=== PATIENT | female | born 1940 | race Caucasian/White ===

== ENCOUNTER 2016-09-26 16:24 | Inpatient (IN) | payer MEDICARE ==
[~2016-09-26] VITALS: Ht 167.6 cm; Wt 56.1 kg
[2016-09-26 04:00] VITALS: BP 138/87; PULSE 82; RESP 20; TEMP 97.9; O2SAT 97
[~2016-09-26 16:24] MED LIST: ACET325T PO; AQUAOIN2 TOP; BACI500O2 TOP; BETH25 PO; BISA10R RECTAL; HYDR-3133 PO; HYDR-3516 PO; HYDR2.5C TOP; LACT PO; LEVO88TA2 PO; MIRTA15 PO; MUCI600T PO; OMEP40CA2 PO; OXYC1TAB63 PO; POLY17S PO; VITATAB56 PO; XARE10TA PO
[2016-09-26 16:36] VITALS: BP 185/77; PULSE 61; RESP 24; O2SAT 98
--- NOTE | 2016-09-26 16:37 | PD ---
HPI Chief Complaint: sob Time Seen by Provider: 16:30 Travel History International Travel<30 days: No (unknown) Contact w/Intl Traveler<30days: No (unknown) History of Present Illness HPI 76yo F with PMH of HTN, COPD, scleroderma presents to the ED with c/o sob for 1 day. Pt has been coughing and feeling sob so she saw a physician at her rehab center and was suppose to be prescribed zpak. She states she felt more sob an hour ago when she [place] so [facility]AC was called. States she felt better when they placed her on nasal cannula and her lungs has been clear. Denies any fever, chest pain, n/v, abdominal pain, focal weakness or numbness. Pt is in a rehab for right proximal femur that was nonoperative and medically managed. PFSH Past Medical History Arthritis: Yes Asthma: Yes Autoimmune Disease: Yes Blood Disorders: No Anxiety: No Depression: No Heart Rhythm Problems: No Cancer: No Cardiac Catheterization: Yes Cardiovascular Problems: Yes High Cholesterol: Yes Chemotherapy: No Chest Pain: Yes (occasional) Congestive Heart Failure: No COPD: Yes Cerebrovascular Accident: No Diabetes: No Diminished Hearing: No Diverticulitis: Yes Endocrine: Yes Fibromyalgia: Yes Gastrointestinal Disorders: Yes (GERD, PORRAS'S ESOPH.) GERD: Yes Glaucoma: No Genitourinary: No Hepatitis: No Hiatal Hernia: No Hypertension: Yes Immune Disorder: Yes (SCLERODERMA, RAYNAUD'S) Kidney Stones: No Musculoskeletal: Yes (FIBROMYLIGIA) Neurologic: No Psychiatric: No Reproductive: No Respiratory: Yes (PULM. HYPERTENSION, COPD) Immunizations Current: No Migraines: Yes (history) Myocardial Infarction: Yes Radiation Therapy: No Renal Failure: No Seizures: No Sickle Cell Disease: No Sleep Apnea: No Thyroid Disease: Yes (HYPO) Ulcer: No PNEUMOCCOCAL Vaccine (Year): 2011 Menopausal: Yes : 7 Para: 3 Miscarriage: 4 Tubal Ligation: Yes Past Surgical History Abdominal Surgery: Yes ( UMBILICAL HERNIA REPAIR) AICD: No Arteriovenous Shunt: No Body Medical Devices: FUNDOPLATATION; STRATA OF ESOPHAGUS Cardiac Surgery: Yes (cardiac cath) Cholecystectomy: Yes Coronary Artery Bypass Graft: No Ear Surgery: No Endocrine Surgery: Yes (PTL. THYROIDECTOMY) Eye Surgery: No Genitourinary Surgery: Yes (BLADDER/ RECTAL SUSP.) Gynecologic Surgery: Yes (total hysterectomy) Hysterectomy: Yes Insulin Pump: No Joint Replacement: Yes (RIGHT KNEE 1998) Oral Surgery: No Pacemaker: No Thoracic Surgery: Yes (FUNDOPLICATION x2) Other Surgery: Yes (THYROID 75 % REMOVED 1969.) Social History Alcohol Use: Yes (1-2 GLASSES OF WINE PER NIGHT) Tobacco Use: No (QUIT 40+ YRS AGO SMOKED 1 PPD FOR APPROX 20+ YRS) Substance Use: No Allergies-Medications (Allergen,Severity, Reaction): Coded Allergies: Duragesic (Verified Allergy, Severe, ITCHING ALL OVER BODY., 09/26/16) Sulfa (Verified Allergy, Severe, Hives, 09/26/16) Tetracycline (Verified Allergy, Severe, ITCHING, 09/26/16) Cipro (Verified Adverse Reaction, Severe, SICK TO STOMACH, 09/26/16) Reported Meds & Prescriptions Reported Meds & Active Scripts Active Hydrocortisone Topical 2.5% Cream 0 Applic TOP TID PRN 30 Days Oxycodone-Acetaminophen 5-325 mg Tab 1 Tab PO Q6HR Acetaminophen 325 Mg Tab 650 Mg PO Q6HR PRN Polyethylene Glycol 3350 Powder (Polyethylene Glycol) 17 Gm Pow 17 Gm PO DAILY PRN Bisac-Evac Supp (Bisacodyl) 10 Mg Supp 1 Mg RECTAL DAILY PRN Aquaphor (Emollient) 1 Oin Oin 1 Applic TOP Q12HR 30 Days Acidophilus/l-Sporogenes (Lactobacillus Acidophilus) 1 Tab Tab 1 Tab PO Q12HR Mirtazapine 15 Mg Tab 15 Mg PO HS Xarelto (Rivaroxaban) 10 Mg Tab 10 Mg PO DAILY Hydroxyzine HCl 25 Mg Tab 25 Mg PO Q8H PRN Hydroxyzine HCl 25 Mg Tab 25 Mg PO DAILY Bacitracin Topical 500 Unit/Gm Oint 0 Applic TOP BID 14 Days Mucinex ER 12 HR (Guaifenesin) 600 Mg Tiffanie 600 Mg PO BID Vitamin D-400 (Cholecalciferol) 400 Unit Tab 400 Units PO DAILY Levothyroxine (Levothyroxine Sodium) 88 Mcg Tab 88 Mcg PO DAILY Urecholine (Bethanechol Chloride) 25 Mg Tab 12.5 Mg PO QID Omeprazole 40 Mg Cap 40 Mg PO DAILY Reported Cimetidine 300 Mg Tab 300 Mg PO BID Prednisone 5 Mg Tab 5 Mg PO DAILY Melatonin 1 Mg Cap Culturelle (Lactobacillus Rhamnosus (GG)) 10 B Cell Cap 1 Cap PO BID Celebrex (Celecoxib) 100 Mg Cap 100 Mg PO BID Tizanidine (Tizanidine HCl) 2 Mg Cap 2 Mg PO BID Review of Systems Except as stated in HPI: all other systems reviewed are Neg Physical Exam Narrative GENERAL: 76yo F not in distress. SKIN: Warm and dry. HEAD: Atraumatic. Normocephalic. EYES: Pupils equal and round. No scleral icterus. No injection or drainage. ENT: No nasal bleeding or discharge. Mucous membranes pink and moist. NECK: Trachea midline. No JVD. CARDIOVASCULAR: Regular rate and rhythm. No murmur appreciated. RESPIRATORY: No accessory muscle use. Clear to auscultation. Breath sounds equal bilaterally. GASTROINTESTINAL: Abdomen soft, non-tender, nondistended. No rebound tenderness or guarding. MUSCULOSKELETAL: No obvious deformities. No clubbing. No cyanosis. No edema. NEUROLOGICAL: Awake and alert. No obvious cranial nerve deficits. Motor grossly within normal limits. Normal speech. PSYCHIATRIC: Appropriate mood and affect; insight and judgment normal. Data Data Last Documented VS Vital Signs Date Time Temp Pulse Resp B/P Pulse Ox O2 Delivery O2 Flow Rate FiO2 09/26/16 18:25 65 21 144/67 96 Nasal Cannula 1 Orders Complete Blood Count With Diff (09/26/16 16:31) Basic Metabolic Panel (Bmp) (09/26/16 16:31) Act Partial Throm Time (Ptt) (09/26/16 16:31) Prothrombin Time / Inr (Pt) (09/26/16 16:31) Magnesium (Mg) (09/26/16 16:31) Troponin I (09/26/16 16:31) Iv Access Insert/Monitor (09/26/16 16:31) Electrocardiogram (09/26/16 16:31) Ecg Monitoring (09/26/16 16:31) Oximetry (09/26/16 16:31) Oxygen Administration (09/26/16 16:31) Chest, Single Ap (09/26/16 16:31) Sodium Chloride 0.9% Flush (Ns Flush) (09/26/16 16:45) Methylprednisolone So Succ Inj (Solumedr (09/26/16 16:45) Albuterol-Ipratropium Neb (Duoneb Neb) (09/26/16 16:45) Ct Pulmonary Angiogram (09/26/16 ) Acetaminophen (Tylenol) (09/26/16 18:15) Sodium Chlorid 0.9% 500 Ml Inj (Ns 500 M (09/26/16 19:15) Iodixanol 320 Inj (Visipaque 320 Inj) (09/26/16 19:12) Labs Laboratory Tests Test 09/26/16 17:15 White Blood Count 7.9 TH/MM3 Red Blood Count 4.18 MIL/MM3 Hemoglobin 11.9 GM/DL Hematocrit 36.5 % Mean Corpuscular Volume 87.3 FL Mean Corpuscular Hemoglobin 28.5 PG Mean Corpuscular Hemoglobin 32.7 % Concent Red Cell Distribution Width 16.1 % Platelet Count 249 TH/MM3 Mean Platelet Volume 7.7 FL Neutrophils (%) (Auto) 67.6 % Lymphocytes (%) (Auto) 18.8 % Monocytes (%) (Auto) 8.8 % Eosinophils (%) (Auto) 3.9 % Basophils (%) (Auto) 0.9 % Neutrophils # (Auto) 5.4 TH/MM3 Lymphocytes # (Auto) 1.5 TH/MM3 Monocytes # (Auto) 0.7 TH/MM3 Eosinophils # (Auto) 0.3 TH/MM3 Basophils # (Auto) 0.1 TH/MM3 CBC Comment DIFF FINAL Differential Comment Prothrombin Time 11.0 SEC Prothromb Time International 1.0 RATIO Ratio Activated Partial 28.0 SEC Thromboplast Time Sodium Level 141 MEQ/L Potassium Level 4.7 MEQ/L Chloride Level 106 MEQ/L Carbon Dioxide Level 25.3 MEQ/L Anion Gap 10 MEQ/L Blood Urea Nitrogen 19 MG/DL Creatinine 1.29 MG/DL Estimat Glomerular Filtration 40 ML/MIN Rate Random Glucose 108 MG/DL Calcium Level 8.9 MG/DL Magnesium Level 2.3 MG/DL Troponin I 0.02 NG/ML [facility] Medical Decision Making Medical Screen Exam Complete: Yes Emergency Medical Condition: Yes Interpretation(s) EKG: NSR 68bpm. LAD. LVH. TWI V5, V6, aVL. Differential Diagnosis COPD exacerbation vs. PNA vs. ACS vs. PE Narrative Course 76yo F with c/o shortness of breath today. Pt is not in acute distress and saturating at 95% on RA. Pt was on nasal cannula and states she feels better but when I took her off nasal cannula, states she felt short of breath again. Will do labs, EKG, CXR and reevaluate. Pt is not wheezing but with history of emphysema and sob, will give methylprednisolone and few duoneb treatments. Labs reviewed, no leukocytosis. BUN/creatinine mildly elevated, pt given IVF NS. Troponin 0.02. CXR showed new bibasilar airspace opacities consistent with atelectasis or consolidation. Will give azithromycin as outpatient. Pt reevaluated at bedside and feels better. CT angio: No PE. Pt has history of pulmonary hypertension. Pt is to be discharged back to rehab. Return precautions given. VS stable. Pt is not in any distress. Diagnosis Primary Impression: Bronchitis Patient Instructions: General Instructions Departure Forms: Tests/Procedures Additional Instructions: Please follow up with your PMD in 3-7 days. Return to the ED if your symptoms worsen. Med/Other Pt SpecificInfo: Prescription(s) given Scripts Azithromycin (Zithromax Z-Joon)250 Mg [id number] Mg PO DIRECTED #1 DSPK Ref 0 500 MG (2 tabs) day 1, then 1 tab days 2-5. Prov:Saundra Hutchison DO 09/26/16 Disposition: 03 DISCHARGE TO SNF Condition: Stable Saundra Hutchison DO Sep 26, 2016 16:37
[2016-09-26 16:40] VITALS: O2SAT 97
[2016-09-26] MEDS: RESP: ALBUTEROL 2.5 MG/IPRATROPIUM 0.5 MG NEB (SCH) INH ×2 (16:42→16:43)
[2016-09-26] MEDS ORDERED: SODIUM CHLORIDE 0.9% FLUSH 5 ML FLUSH IVF PRN (16:45)
[2016-09-26] MEDS ORDERED: methylPREDNISolone SOD SUCC 125 MG/2 ML VIAL IVP ONE (16:45)
--- NOTE | 2016-09-26 17:17 | RADRPT ---
EXAM DATE/TIME: 09/26/2016 16:57 [facility] COMPARISON: CHEST SINGLE AP, April 11, 2016, 10:42. INDICATIONS : Short of breath. MEDICAL HISTORY : Myocardial infarction. SURGICAL HISTORY : None. ENCOUNTER: Initial ACUITY: 1 day PAIN SCORE: 0/10 LOCATION: Bilateral chest FINDINGS: The lungs are hyperinflated and there is bibasilar airspace hazy opacities concerning for subsegmenta l atelectasis versus early airspace consolidation. The costophrenic angles appear sharp. Heart size is mildly enlarged. Pulmonary vasculature is normal. CONCLUSION: New bibasilar airspace opacities consistent with atelectasis versus consolidation. Tiffanie Uriarte MD on September 26, 2016 at 17:15 Board Certified Radiologist. This report was verified electronically.
[2016-09-26 17:56] LABS: AUTOMATED NEUTROPHIL # 5.4 TH/MM3 (1.8-7.7); BASOPHIL # 0.1 TH/MM3 (0-0.2); BASOPHIL % 0.9 % (0.0-2.0); EOSINOPHIL # 0.3 TH/MM3 (0-0.4); EOSINOPHIL % 3.9 % (0.0-4.0); HEMATOCRIT 36.5 % (35.0-46.0); HEMO FLAGS DIFF FINAL; LYMPH % 18.8 % (9.0-44.0); LYMPHOCYTE # 1.5 TH/MM3 (1.0-4.8); MEAN CELL VOLUME 87.3 FL (80.0-100.0); MEAN CORPUSCULAR HEMOGLOBIN 28.5 PG (27.0-34.0); MEAN CORPUSCULAR HGB CONC 32.7 % (32.0-36.0); MONO % 8.8 % (0.0-8.0); NEUT % 67.6 % (16.0-70.0); PLATELET COUNT 249 TH/MM3 (150-450); RED BLOOD COUNT 4.18 MIL/MM3 (4.00-5.30); RED CELL DISTRIBUTION WIDTH 16.1 % (11.6-17.2); WHITE BLOOD COUNT 7.9 TH/MM3 (4.0-11.0)
[2016-09-26] MEDS ORDERED: ACETAMINOPHEN 325 MG TAB PO ONE (18:15)
[2016-09-26 18:21] LABS: BICARBONATE 25.3 MEQ/L (21.0-32.0); MAGNESIUM 2.3 MG/DL (1.5-2.5); POTASSIUM 4.7 MEQ/L (3.5-5.1)
[2016-09-26 18:25] VITALS: BP 144/67; PULSE 65; RESP 21; O2SAT 96
[2016-09-26] MEDS ORDERED: IODIXANOL 320 MG/ML 10 ML VIAL (for RAD SPEC) IV ONE (19:12)
--- NOTE | 2016-09-26 19:13 | RADRPT ---
EXAM DATE/TIME: 09/26/2016 18:52 [facility] COMPARISON: No previous studies available for comparison. INDICATIONS : Shortness of breath starting today. IV CONTRAST: 50 cc Visipaque (iodixanol) IV RADIATION DOSE: 6.46 CTDIvol (mGy) MEDICAL HISTORY : Hypertension. Chronic obstructive pulmonary disease. scleroderma SURGICAL HISTORY : Thyroidectomy. Umbilical hernia repair. ENCOUNTER: Initial ACUITY: 1 day PAIN SCALE: 0/10 LOCATION: chest TECHNIQUE: Volumetric scanning of the chest was performed using a pulmonary embolism protocol MIP images were re constructed. Using automated exposure control and adjustment of the mA and/or kV according to patien t size, radiation dose was kept as low as reasonably achievable to obtain optimal diagnostic quality images. FINDINGS: PULMONARY ARTERIES: No filling defects are seen in the pulmonary arteries through the segmental level. LUNGS: There is moderate emphysema. A few minimal patchy densities are seen within the periphery of the righ t upper lobe in both lower lobes. There is no consolidation or pneumothorax . No concerning pulmonar y nodule is visualized. PLEURAE: There is no pleural thickening or pleural effusion. MEDIASTINUM: There is good visualization of the great vessels of the middle mediastinum. No evidence of mediastin al or hilar adenopathy/mass. Main pulmonary trunk is prominent. Esophagus is dilated and filled with fluid. Anastomotic sutures at the GE junction. MUSCULOSKELETAL: Within normal limits for patient age. MISCELLANEOUS: The visualized upper abdominal organs demonstrate no acute abnormality. CONCLUSION: 1. No evidence for pulmonary embolism. 2. Dilated pulmonary trunk likely pulmonary arterial hypertension. 3. Emphysema with minimal patchy densities could be infectious or inflammatory. 4. Dilated esophagus filled with fluid. Derick Yee MD on September 26, 2016 at 19:08 Board Certified Radiologist. This report was verified electronically.
[2016-09-26] MEDS ORDERED: SODIUM CHLORID 0.9% 500 ML INJ 500 ML IV ONE (19:15)
[2016-09-26] MEDS ORDERED: MELA1CAP (19:19)
[2016-09-26] MEDS ORDERED: PRED5TAB PO (19:19)
[2016-09-26] MEDS ORDERED: CIME300T PO (19:19)
[2016-09-26] MEDS ORDERED: CELE100C PO (19:19)
[2016-09-26] MEDS ORDERED: CULT10CA4 PO (19:19)
[2016-09-26] MEDS ORDERED: TIZA2CAP3 PO (19:19)
[2016-09-26] MEDS ORDERED: ZITHTAB PO (19:35)
[2016-09-26] MEDS ORDERED: cefTRIAXone INJ 1,000 MG in SODIUM CHLORIDE 0.9% INJ 100 ML IV ONE (20:45)
[2016-09-26] MEDS ORDERED: RESP: ALBUTEROL 2.5 MG/IPRATROPIUM 0.5 MG NEB (SCH) NEB ONE (20:45)
[2016-09-26] MEDS ORDERED: AZITHROMYCIN INJ 500 MG in SODIUM CHLOR 0.9% 250 ML INJ 250 ML IV ONE (20:45)
--- NOTE | 2016-09-26 20:59 | PD ---
Physical Exam Date Seen by Provider: Sep 26, 2016 Time Seen by Provider: 20:55 Narrative The patient is a 76-year-old female was initially seen by the previous physician, Dr. Hutchison. The patient presented with one day of shortness of breath that was worse with talking and exertion. The patient is currently in a rehabilitation facility after breaking her hip. The patient had a chest x- ray was unremarkable, CT pulmonary angiogram that was negative except for patchy bilateral airspace disease and findings consistent with pulmonary hypertension. The patient does have a history of pulmonary hypertension and is followed at the [facility]. The patient states she does have a history of COPD , has not smoked in over 20 years. She does use Spiriva, but does not have any nebulizers and is not oxygen dependent at home. The patient was initially going to be discharged by the previous physician, however, continued to complain of shortness of breath. The patient's pulse oximetry on room air was 93%, she had a few rhonchi in the bases bilaterally, otherwise, vitals were stable. I do discussion with the patient regarding possibility of 23 hour observation for nebulizers, serial cardiac enzymes, possibly echocardiogram if indicated. The patient's primary physician is Dr. Means, therefore[facility]. Data Data Last Documented VS Vital Signs Date Time Temp Pulse Resp B/P Pulse Ox O2 Delivery O2 Flow Rate FiO2 09/26/16 18:25 65 21 144/67 96 Nasal Cannula 1 Orders Complete Blood Count With Diff (09/26/16 16:31) Basic Metabolic Panel (Bmp) (09/26/16 16:31) Act Partial Throm Time (Ptt) (09/26/16 16:31) Prothrombin Time / Inr (Pt) (09/26/16 16:31) Magnesium (Mg) (09/26/16 16:31) Troponin I (09/26/16 16:31) Iv Access Insert/Monitor (09/26/16 16:31) Electrocardiogram (09/26/16 16:31) Ecg Monitoring (09/26/16 16:31) Oximetry (09/26/16 16:31) Oxygen Administration (09/26/16 16:31) Chest, Single Ap (09/26/16 16:31) Sodium Chloride 0.9% Flush (Ns Flush) (09/26/16 16:45) Methylprednisolone So Succ Inj (Solumedr (09/26/16 16:45) Albuterol-Ipratropium Neb (Duoneb Neb) (09/26/16 16:45) Ct Pulmonary Angiogram (09/26/16 ) Acetaminophen (Tylenol) (09/26/16 18:15) Sodium Chlorid 0.9% 500 Ml Inj (Ns 500 M (09/26/16 19:15) Iodixanol 320 Inj (Visipaque 320 Inj) (09/26/16 19:12) Ceftriaxone Inj (Rocephin Inj) (09/26/16 20:45) Azithromycin Inj (Zithromax Inj) (09/26/16 20:45) Albuterol-Ipratropium Neb (Duoneb Neb) (09/26/16 20:45) Influenzae A/B Antigen (09/26/16 20:45) Place In Observation (09/26/16 ) Vital Signs (Adult) Q4H (09/26/16 21:38) Activity Oob With Assistance (09/26/16 21:38) ^ Avionic Technician / Telemetry .CONTINUOUS (09/26/16 21:38) Diet Heart Healthy (09/27/16 Breakfast) Sodium Chloride 0.9% Flush (Ns Flush) (09/26/16 21:45) Sodium Chloride 0.9% Flush (Ns Flush) (09/27/16 09:00) Basic Metabolic Panel (Bmp) (09/27/16 06:00) Complete Blood Count With Diff (09/27/16 06:00) Pt Request For Service (09/26/16 21:38) Case Management Consult (09/26/16 21:38) Enoxaparin Inj (Lovenox Inj) (09/27/16 09:00) Naloxone Inj (Narcan Inj) (09/26/16 21:45) Admit Order (Ed Use Only) (09/26/16 21:40) Labs Laboratory Tests Test 09/26/16 17:15 White Blood Count 7.9 TH/MM3 Red Blood Count 4.18 MIL/MM3 Hemoglobin 11.9 GM/DL Hematocrit 36.5 % Mean Corpuscular Volume 87.3 FL Mean Corpuscular Hemoglobin 28.5 PG Mean Corpuscular Hemoglobin 32.7 % Concent Red Cell Distribution Width 16.1 % Platelet Count 249 TH/MM3 Mean Platelet Volume 7.7 FL Neutrophils (%) (Auto) 67.6 % Lymphocytes (%) (Auto) 18.8 % Monocytes (%) (Auto) 8.8 % Eosinophils (%) (Auto) 3.9 % Basophils (%) (Auto) 0.9 % Neutrophils # (Auto) 5.4 TH/MM3 Lymphocytes # (Auto) 1.5 TH/MM3 Monocytes # (Auto) 0.7 TH/MM3 Eosinophils # (Auto) 0.3 TH/MM3 Basophils # (Auto) 0.1 TH/MM3 CBC Comment DIFF FINAL Differential Comment Prothrombin Time 11.0 SEC Prothromb Time International 1.0 RATIO Ratio Activated Partial 28.0 SEC Thromboplast Time Sodium Level 141 MEQ/L Potassium Level 4.7 MEQ/L Chloride Level 106 MEQ/L Carbon Dioxide Level 25.3 MEQ/L Anion Gap 10 MEQ/L Blood Urea Nitrogen 19 MG/DL Creatinine 1.29 MG/DL Estimat Glomerular Filtration 40 ML/MIN Rate Random Glucose 108 MG/DL Calcium Level 8.9 MG/DL Magnesium Level 2.3 MG/DL Troponin I 0.02 NG/ML [facility] Medical Record Reviewed: Yes Supervised Visit with ESTEFANY: No Interpretation(s) EKG reveals normal sinus rhythm with a rate of 68. Inverted T-wave noted in lead V5, V6, 1, and aVL. Laboratory Tests Test 09/26/16 17:15 White Blood Count 7.9 TH/MM3 Red Blood Count 4.18 MIL/MM3 Hemoglobin 11.9 GM/DL Hematocrit 36.5 % Mean Corpuscular Volume 87.3 FL Mean Corpuscular Hemoglobin 28.5 PG Mean Corpuscular Hemoglobin 32.7 % Concent Red Cell Distribution Width 16.1 % Platelet Count 249 TH/MM3 Mean Platelet Volume 7.7 FL Neutrophils (%) (Auto) 67.6 % Lymphocytes (%) (Auto) 18.8 % Monocytes (%) (Auto) 8.8 % Eosinophils (%) (Auto) 3.9 % Basophils (%) (Auto) 0.9 % Neutrophils # (Auto) 5.4 TH/MM3 Lymphocytes # (Auto) 1.5 TH/MM3 Monocytes # (Auto) 0.7 TH/MM3 Eosinophils # (Auto) 0.3 TH/MM3 Basophils # (Auto) 0.1 TH/MM3 CBC Comment DIFF FINAL Differential Comment Prothrombin Time 11.0 SEC Prothromb Time International 1.0 RATIO Ratio Activated Partial 28.0 SEC Thromboplast Time Sodium Level 141 MEQ/L Potassium Level 4.7 MEQ/L Chloride Level 106 MEQ/L Carbon Dioxide Level 25.3 MEQ/L Anion Gap 10 MEQ/L Blood Urea Nitrogen 19 MG/DL Creatinine 1.29 MG/DL Estimat Glomerular Filtration 40 ML/MIN Rate Random Glucose 108 MG/DL Calcium Level 8.9 MG/DL Magnesium Level 2.3 MG/DL Troponin I 0.02 NG/ML Last Impressions Chest X-Ray 09/26/16 1631 Signed Impressions: Service Date/Time: Monday, September 26, 2016 16:57 - CONCLUSION: New bibasilar airspace opacities consistent with atelectasis versus consolidation. Tiffanie Uriarte MD CT Angiography 09/26/16 0000 Signed Impressions: Service Date/Time: Monday, September 26, 2016 18:52 - CONCLUSION: 1. No evidence for pulmonary embolism. 2. Dilated pulmonary trunk likely pulmonary arterial hypertension. 3. Emphysema with minimal patchy densities could be infectious or inflammatory. 4. Dilated esophagus filled with fluid. Derick Yee MD Differential Diagnosis Differential diagnosis includes pulmonary embolism, bronchitis, CHF, pleural effusion, acute coronary syndrome, bronchitis, pneumonia. Narrative Course Patient was initially evaluated by the previous physician, Dr. Hutchison, the patient was going to be discharged. However, she continued to be short of breath. The patient's chest x-ray was unremarkable except for atelectasis, CT pulmonary injury gram was negative for PE, however, did reveal bilateral patchy densities , should this is pneumonia versus bronchitis. The patient states she did not want to leave, she was anxious about her shortness of breath. The patient's O2 sat was 93% on room air, she did appear slightly anxious and dyspneic. Therefore, patient will be 23 hour observation. The patient's primary physician is Dr. Means, therefore[facility]. Physician Communication Physician Communication Dr. Quezada was paged for 23 hour observation. I discussed the patient Dr. Quezada who agrees with 23 hour observation. Diagnosis Primary Impression: Bronchitis Additional Impression: Chronic obstructive pulmonary disease Qualified Code: J44.1 - Chronic obstructive pulmonary disease with acute exacerbation Admitting Information Admitting Physician Requests: Observation Patient Instructions: General Instructions Departure Forms: Tests/Procedures Additional Instruction: Please follow up with your PMD in 3-7 days. Return to the ED if your symptoms worsen. Scripts Azithromycin (Zithromax Z-Joon)250 Mg [id number] Mg PO DIRECTED #1 DSPK Ref 0 500 MG (2 tabs) day 1, then 1 tab days 2-5. Prov:Saundra Hutchison DO 09/26/16 Disposition: 03 DISCHARGE TO SNF Condition: Stable Zay Rachel MD Sep 26, 2016 20:59
[2016-09-26 21:00] VITALS: BP 106/63; PULSE 70; RESP 20; O2SAT 96
[2016-09-26] MEDS ORDERED: NALOXONE HCL 0.4 MG/ML AMP IV PRN (21:45)
[2016-09-26] MEDS ORDERED: RESP: ALBUTEROL 2.5 MG/IPRATROPIUM 0.5 MG NEB (PRN) NEB (22:00)
[2016-09-26] MEDS ORDERED: ZOLPIDEM TARTRATE 10 MG TAB PO ONE (22:45)
--- NOTE | 2016-09-26 22:55 | HHI.HP ---
[facility] Service [facility] Primary Care Physician Froilan Means MD Admission Diagnosis bronchitis, COPD exacerbation, dyspnea Diagnoses: Chief Complaint: Shortness of breath Travel History International Travel<30 Days: No (unknown) Contact w/Intl Traveler <30 Da: No (unknown) Traveled to Known Affected Are: No History of Present Illness History taken from patient and ED physician. 76 her old female with a history of COPD, depression/anxiety and hypothyroidism presented to the ED with complaints of shortness of breath upon exertion today. Patient states she went to go see her dog at the vet and became short of breath while walking. She states she does have COPD but only uses nebulizers about every 3 months or so. She denies any associated chest pain, dizziness, fever or chills. She is currently residing [facility] rehabilitation finishing up rehabilitation for a right greater trochanter hip fracture that was nonsurgical since July 2016. Dr. Garzon is her primary care physician. Dr. Gasca is her psychological operations, whom follows her regularly for a known murmur , patient states last echocardiogram has been within the last 6 months. Review of Systems Constitutional: DENIES: Fever, Chills, Dizziness Respiratory: COMPLAINS OF: Shortness of breath, DENIES: Cough, Sputum production Cardiovascular: DENIES: Chest pain, Lower Extremity Edema, Orthopnea Gastrointestinal: DENIES: Constipation, Diarrhea, Nausea, Vomiting Genitourinary: DENIES: Urinary frequency Musculoskeletal: DENIES: Back pain, Neck pain Integumentary: DENIES: Rash Hematologic/lymphatic: DENIES: Lymphadenopathy Immunologic/allergic: DENIES: Urticaria Neurologic: DENIES: Headache Past Family Social History Past Medical History Hypertension Hypothyroidism COPD Cardiomegaly Right greater trochanter hip fracture nonsurgical Past Surgical History Thyroidectomy Hysterectomy Right knee replacement Cholecystectomy Reported Medications Reported Meds & Active Scripts Active Zithromax Z-Joon (Azithromycin) 250 Mg Dspk 250 Mg PO DIRECTED 500 MG (2 tabs) day 1, then 1 tab days 2-5. Hydrocortisone Topical 2.5% Cream 0 Applic TOP TID PRN 30 Days Oxycodone-Acetaminophen 5-325 mg Tab 1 Tab PO Q6HR Acetaminophen 325 Mg Tab 650 Mg PO Q6HR PRN Polyethylene Glycol 3350 Powder (Polyethylene Glycol) 17 Gm Pow 17 Gm PO DAILY PRN Bisac-Evac Supp (Bisacodyl) 10 Mg Supp 1 Mg RECTAL DAILY PRN Aquaphor (Emollient) 1 Oin Oin 1 Applic TOP Q12HR 30 Days Acidophilus/l-Sporogenes (Lactobacillus Acidophilus) 1 Tab Tab 1 Tab PO Q12HR Mirtazapine 15 Mg Tab 15 Mg PO HS Xarelto (Rivaroxaban) 10 Mg Tab 10 Mg PO DAILY Hydroxyzine HCl 25 Mg Tab 25 Mg PO Q8H PRN Hydroxyzine HCl 25 Mg Tab 25 Mg PO DAILY Bacitracin Topical 500 Unit/Gm Oint 0 Applic TOP BID 14 Days Mucinex ER 12 HR (Guaifenesin) 600 Mg Tiffanie 600 Mg PO BID Vitamin D-400 (Cholecalciferol) 400 Unit Tab 400 Units PO DAILY Levothyroxine (Levothyroxine Sodium) 88 Mcg Tab 88 Mcg PO DAILY Urecholine (Bethanechol Chloride) 25 Mg Tab 12.5 Mg PO QID Omeprazole 40 Mg Cap 40 Mg PO DAILY Reported Cimetidine 300 Mg Tab 300 Mg PO BID Prednisone 5 Mg Tab 5 Mg PO DAILY Melatonin 1 Mg Cap Culturelle (Lactobacillus Rhamnosus (GG)) 10 B Cell Cap 1 Cap PO BID Celebrex (Celecoxib) 100 Mg Cap 100 Mg PO BID Tizanidine (Tizanidine HCl) 2 Mg Cap 2 Mg PO BID Allergies: Coded Allergies: Duragesic (Verified Allergy, Severe, ITCHING ALL OVER BODY., 09/26/16) Sulfa (Verified Allergy, Severe, Hives, 09/26/16) Tetracycline (Verified Allergy, Severe, ITCHING, 09/26/16) Cipro (Verified Adverse Reaction, Severe, SICK TO STOMACH, 09/26/16) Active Ordered Medications Current Medications Medications (Trade) Dose Ordered Sig/Glenny Route Start Time Stop Time Status Last Admin (NS Flush) 2 ml UNSCH PRN FLUSH 09/26/16 21:45 (NS Flush) 2 ml BID FLUSH 09/27/16 09:00 (Narcan Inj) 0.4 mg UNSCH PRN IV 09/26/16 21:45 (SoluMEDROL INJ) 40 mg Q6HR IV PUSH 09/27/16 00:00 09/27/16 00:39 (Protonix) 40 mg DAILY PO 09/27/16 09:00 (Atarax) 25 mg Q8H PRN PO 09/26/16 22:00 (Lactinex) 1 tab Q12HR PO 09/27/16 09:00 (Synthroid) 88 mcg DAILY@06 PO 09/27/16 06:00 (Remeron) 15 mg HS PO 09/27/16 21:00 (Xarelto) 10 mg DAILY PO 09/27/16 09:00 (Zanaflex) 2 mg BID PO 09/27/16 09:00 (Pepcid) 20 mg BID PO 09/27/16 09:00 (Tylenol) 650 mg Q4H PRN PO 09/27/16 01:15 UNV Family History Family history significant for heart disease Social History Tobacco use: Smoked for about 30 years and quit many years ago Alcohol use: Denies Illicit drug use: Denies Physical Exam Vital Signs Vital Signs Date Time Temp Pulse Resp B/P Pulse Ox O2 Delivery O2 Flow Rate FiO2 09/26/16 18:25 65 21 144/67 96 Nasal Cannula 1 09/26/16 18:25 97 Nasal Cannula 1 09/26/16 18:25 65 21 144/67 96 Nasal Cannula 1 09/26/16 17:15 96 Nasal Cannula 2 09/26/16 16:40 97 Nasal Cannula 2.00 09/26/16 16:36 61 24 185/77 98 Physical Exam GENERAL: This is a well-nourished, well-developed patient, in no apparent distress. SKIN: No rashes, ecchymoses or lesions. Cool and dry. HEAD: Atraumatic. Normocephalic. EYES: Pupils equal round and reactive. ENT: Nose without bleeding, purulent drainage or septal hematoma. Airway patent. NECK: Trachea midline. No JVD CARDIOVASCULAR: Regular rate and rhythm. Aortic murmur with radiation to neck RESPIRATORY: Clear to auscultation. Breath sounds equal bilaterally. No wheezes , rales, or rhonchi. GASTROINTESTINAL: Abdomen soft, non-tender, nondistended. MUSCULOSKELETAL: Extremities without clubbing, cyanosis, or edema. No joint tenderness, effusion, or edema noted. No calf tenderness. NEUROLOGICAL: Awake and alert. Motor and sensory grossly within normal limits. Normal speech. Laboratory Laboratory Tests Test 09/26/16 17:15 White Blood Count 7.9 Red Blood Count 4.18 Hemoglobin 11.9 Hematocrit 36.5 Mean Corpuscular Volume 87.3 Mean Corpuscular Hemoglobin 28.5 Mean Corpuscular Hemoglobin 32.7 Concent Red Cell Distribution Width 16.1 Platelet Count 249 Mean Platelet Volume 7.7 Neutrophils (%) (Auto) 67.6 Lymphocytes (%) (Auto) 18.8 Monocytes (%) (Auto) 8.8 Eosinophils (%) (Auto) 3.9 Basophils (%) (Auto) 0.9 Neutrophils # (Auto) 5.4 Lymphocytes # (Auto) 1.5 Monocytes # (Auto) 0.7 Eosinophils # (Auto) 0.3 Basophils # (Auto) 0.1 CBC Comment DIFF FINAL Differential Comment Prothrombin Time 11.0 Prothromb Time International 1.0 Ratio Activated Partial 28.0 Thromboplast Time Sodium Level 141 Potassium Level 4.7 Chloride Level 106 Carbon Dioxide Level 25.3 Anion Gap 10 Blood Urea Nitrogen 19 Creatinine 1.29 Estimat Glomerular Filtration 40 Rate Random Glucose 108 Calcium Level 8.9 Magnesium Level 2.3 Troponin I 0.02 Result Diagram: 09/26/16 1715 09/26/16 1715 Imaging Last Impressions Chest X-Ray 09/26/16 1631 Signed Impressions: Service Date/Time: Monday, September 26, 2016 16:57 - CONCLUSION: New bibasilar airspace opacities consistent with atelectasis versus consolidation. Tiffanie Uriarte MD CT Angiography 09/26/16 0000 Signed Impressions: Service Date/Time: Monday, September 26, 2016 18:52 - CONCLUSION: 1. No evidence for pulmonary embolism. 2. Dilated pulmonary trunk likely pulmonary arterial hypertension. 3. Emphysema with minimal patchy densities could be infectious or inflammatory. 4. Dilated esophagus filled with fluid. Derick Yee MD Assessment and Plan Problem List: (1) COPD exacerbation ICD Code: J44.1 Status: Acute (2) Hypothyroidism ICD Code: E03.9 Status: Chronic (3) Depression ICD Code: F32.9 Status: Chronic Assessment and Plan 76-year-old female with a history of COPD and hypothyroidism presented with: COPD exacerbation Images reviewed: Chest x-ray shows new bibasilar airspace opacities consistent with atelectasis versus consolidation. CT of the chest shows No evidence for pulmonary embolism. Dilated pulmonary trunk likely pulmonary arterial hypertension. Emphysema with minimal patchy densities could be infectious or inflammatory. Dilated esophagus filled with fluid. -DuoNeb's scheduled and as needed -Solu-Medrol IV every 6 -Oxygen as needed Hypothyroidism, chronic -Continue home medications Levothyroxine Depression/anxiety, chronic -Continue home medications Remeron, Atarax DVT prophylaxis: Xarelto GI prophylaxis: Protonix Written by Selam ERNST, acting as scribe for Dr. Quezada on 09/26/16 at 2300. The documentation accurately reflects the work performed [id number] and decisions made by me and the physician Dr Quezada on 09/26/16. The documentation accurately reflects the work performed [id number] by me on at 2300 Discussed Condition With Patient and ED physician Selam Alejandre Sep 26, 2016 22:54 Orlando Quezada MD Sep 27, 2016 07:14
[2016-09-27] VITALS (10 sets, daily range): BP systolic 122–174; BP diastolic 57–78; PULSE 60–85; RESP 18–22; TEMP 95.7–97.5; O2SAT 93–98
[2016-09-27] MEDS: methylPREDNISolone SOD SUCC 40 MG/1 ML VIAL IV PUSH SCH ×4 (00:39→20:19)
[2016-09-27] MEDS: ACETAMINOPHEN 325 MG TAB PO PRN ×4 (01:19→20:24)
[2016-09-27] MEDS: RESP: ALBUTEROL 2.5 MG/IPRATROPIUM 0.5 MG NEB (SCH) NEB ×4 (03:49→20:00)
[2016-09-27] MEDS: LEVOTHYROXINE SODIUM 88 MCG TAB PO SCH (04:59)
[2016-09-27 07:11] LABS: AUTOMATED NEUTROPHIL # 7.5 TH/MM3 (1.8-7.7); BASOPHIL % 0.2 % (0.0-2.0); HEMATOCRIT 35.6 % (35.0-46.0); HEMO FLAGS DIFF FINAL; LYMPH % 7.5 % (9.0-44.0); LYMPHOCYTE # 0.6 TH/MM3 (1.0-4.8); MEAN CORPUSCULAR HEMOGLOBIN 28.6 PG (27.0-34.0); MEAN CORPUSCULAR HGB CONC 33.3 % (32.0-36.0); MONO % 1.8 % (0.0-8.0); NEUT % 90.5 % (16.0-70.0); PLATELET COUNT 232 TH/MM3 (150-450); RED BLOOD COUNT 4.14 MIL/MM3 (4.00-5.30); RED CELL DISTRIBUTION WIDTH 15.9 % (11.6-17.2); WHITE BLOOD COUNT 8.3 TH/MM3 (4.0-11.0)
[2016-09-27 07:37] LABS: BICARBONATE 22.2 MEQ/L (21.0-32.0); POTASSIUM 4.6 MEQ/L (3.5-5.1)
[2016-09-27] MEDS: FAMOTIDINE 20 MG TAB PO SCH ×2 (08:04→20:19)
[2016-09-27] MEDS: PANTOPRAZOLE SOD 40 MG DELAYED RELEASE TAB PO SCH (08:05)
[2016-09-27] MEDS: RIVAROXABAN 10 MG TAB PO SCH (08:05)
[2016-09-27] MEDS: LACTOBACILLUS ACIDOPHILUS TAB PO SCH ×2 (08:06→20:19)
[2016-09-27] MEDS ORDERED: ENOXAPARIN SODIUM 40 MG/0.4 ML SYRINGE SQ SCH (09:00)
[2016-09-27] MEDS ORDERED: INFLUENZA VIRUS VACCINE (QUADRIVALENT) 0.5 ML SYR IM ONE (09:00)
--- NOTE | 2016-09-27 13:29 | HHI.PR ---
Subjective Remarks The patient says she still feels short of breath. She said her daughter left a note for me to read. She says she was feeling sickly lately and was thinking about taking a Z-Joon. 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 Discussed with nursing. Discussed with the patient's daughter. Objective Vitals Vital Signs Date Time Temp Pulse Resp B/P Pulse Ox O2 Delivery O2 Flow Rate FiO2 09/27/16 10:03 94 Nasal Cannula 2.00 09/27/16 08:00 97.2 60 18 174/72 97 09/27/16 04:00 65 18 149/67 97 Nasal Cannula 2 09/27/16 00:00 74 20 122/58 96 Nasal Cannula 2 09/26/16 21:00 70 20 106/63 96 Nasal Cannula 2 09/26/16 18:25 65 21 144/67 96 Nasal Cannula 1 09/26/16 18:25 97 Nasal Cannula 1 09/26/16 18:25 65 21 144/67 96 Nasal Cannula 1 09/26/16 17:15 96 Nasal Cannula 2 09/26/16 16:40 97 Nasal Cannula 2.00 09/26/16 16:36 61 24 185/77 98 Result Diagram: 09/27/16 0625 09/27/16 0625 Imaging Last Impressions Chest X-Ray 09/26/16 1631 Signed Impressions: Service Date/Time: Monday, September 26, 2016 16:57 - CONCLUSION: New bibasilar airspace opacities consistent with atelectasis versus consolidation. Tiffanie Uriarte MD CT Angiography 09/26/16 0000 Signed Impressions: Service Date/Time: Monday, September 26, 2016 18:52 - CONCLUSION: 1. No evidence for pulmonary embolism. 2. Dilated pulmonary trunk likely pulmonary arterial hypertension. 3. Emphysema with minimal patchy densities could be infectious or inflammatory. 4. Dilated esophagus filled with fluid. Derick Yee MD Objective Remarks GENERAL: This is a well-nourished, well-developed patient, in no apparent distress. SKIN: No rashes, ecchymoses or lesions. Cool and dry. HEAD: Atraumatic. Normocephalic. EYES: Pupils equal round and reactive. ENT: Nose without bleeding, purulent drainage or septal hematoma. Airway patent. NECK: Trachea midline. No JVD CARDIOVASCULAR: Regular rate and rhythm. Systolic murmur appreciated. RESPIRATORY: Clear to auscultation. Decreased breath sounds. GASTROINTESTINAL: Abdomen soft, non-tender, nondistended. MUSCULOSKELETAL: Extremities without clubbing, cyanosis, or edema. No joint tenderness, effusion, or edema noted. NEUROLOGICAL: Awake and alert. Motor and sensory grossly within normal limits. Normal speech. PSYCH: Mood and affect appreciated. Medications and IVs Current Medications Medications (Trade) Dose Ordered Sig/Glenny Route Start Time Stop Time Status Last Admin (NS Flush) 2 ml UNSCH PRN FLUSH 09/26/16 21:45 (NS Flush) 2 ml BID FLUSH 09/27/16 09:00 (Narcan Inj) 0.4 mg UNSCH PRN IV 09/26/16 21:45 (SoluMEDROL INJ) 40 mg Q6HR IV PUSH 09/27/16 00:00 09/27/16 11:51 (Protonix) 40 mg DAILY PO 09/27/16 09:00 09/27/16 08:05 (Atarax) 25 mg Q8H PRN PO 09/26/16 22:00 (Lactinex) 1 tab Q12HR PO 09/27/16 09:00 09/27/16 08:06 (Synthroid) 88 mcg DAILY@06 PO 09/27/16 06:00 09/27/16 04:59 (Remeron) 15 mg HS PO 09/27/16 21:00 (Xarelto) 10 mg DAILY PO 09/27/16 09:00 09/27/16 08:05 (Zanaflex) 2 mg BID PO 09/27/16 09:00 09/27/16 08:06 (Pepcid) 20 mg BID PO 09/27/16 09:00 09/27/16 08:04 (Tylenol) 650 mg Q4H PRN PO 09/27/16 01:15 09/27/16 08:04 Oxycodone HCl 5 mg 5 mg Q4H PRN PO 09/27/16 12:00 09/27/16 11:50 (Zithromax Inj/ NS 250 ml Inj) 250 ml @ 250 mls/hr Q24H IV 09/27/16 15:00 Docusate Sodium 100 mg 100 mg BID PO 09/27/16 21:00 (Rocephin Inj/NS Inj) 100 ml @ 200 mls/hr Q24H IV 09/27/16 13:30 UNV A/P Problem List: (1) COPD exacerbation ICD Code: J44.1 Status: Acute (2) Hypothyroidism ICD Code: E03.9 Status: Chronic (3) Depression ICD Code: F32.9 Status: Chronic Assessment and Plan COPD exacerbation Chest x-ray shows new bibasilar airspace opacities consistent with atelectasis versus consolidation. CT of the chest shows: No evidence for pulmonary embolism ; Dilated pulmonary trunk likely pulmonary arterial hypertension; Emphysema with minimal patchy densities could be infectious or inflammatory; Dilated esophagus filled with fluid. - DuoNeb's scheduled and as needed. - Solu-Medrol IV every 8 hours. - Oxygen as needed. - Incentive spirometry. - pulmonology consult pending. HTN Likely exacerbated by shortness of breath. - Vasotec as needed. Hyperglycemia Blood sugar has been running high. - check a hemoglobin A1c. Headache The pt has a history of migraines but does not feel like her typical migraine. - pain control as needed. DVT prophylaxis: Xarelto GI prophylaxis: Protonix Discharge Planning Awaiting clinical improvement. Girma Monk DO Sep 27, 2016 13:29
[2016-09-27] MEDS ORDERED: ENALAPRILAT 1.25 MG/ML VIAL IV PUSH PRN (14:00)
[2016-09-27] MEDS: cefTRIAXone INJ 1,000 MG in SODIUM CHLORIDE 0.9% INJ 100 ML IV SCH (14:58)
[2016-09-27 15:47] LABS: HEMOGLOBIN A1b 1.9 %; HEMOGLOBIN Ao 84.9 %; HEMOGLOBIN LA1C 2.4 %; HEMOGLOBIN P3 4.1 %
[2016-09-27] MEDS: AZITHROMYCIN INJ 500 MG in SODIUM CHLOR 0.9% 250 ML INJ 250 ML IV SCH ×3 (18:30→22:15)
[2016-09-27] MEDS: DOCUSATE SODIUM 100 MG CAP PO SCH (20:19)
[2016-09-27] MEDS: MIRTAZAPINE 15 MG TAB PO SCH (20:20)
[2016-09-27] MEDS: SODIUM CHLORIDE 0.9% FLUSH 5 ML FLUSH FLUSH SCH (21:00)
--- NOTE | 2016-09-27 21:13 | EKG ---
Date Performed: 09/26/2016 Time Performed: 16:51:18 PTAGE: 76 years EKG: Sinus rhythm POSSIBLE LEFT ATRIAL ENLARGEMENT ST DEVIATION AND MODERATE T-WAVE ABNORMALITY, CONSIDER LATERAL ISCH EMIA ABNORMAL ECG PREVIOUS TRACING : 04/11/2016 13.54 DOCTOR: Rodrick To Interpretating Date/Time 09/27/2016 21:06:18
[2016-09-28] VITALS (8 sets, daily range): BP systolic 131–160; BP diastolic 61–71; PULSE 58–65; RESP 17–18; TEMP 96.5–97.9; O2SAT 98–100
[2016-09-28] MEDS: LEVOTHYROXINE SODIUM 88 MCG TAB PO SCH (05:58)
[2016-09-28] MEDS: methylPREDNISolone SOD SUCC 40 MG/1 ML VIAL IV PUSH SCH ×2 (05:58→19:50)
--- NOTE | 2016-09-28 07:15 | RADRPT ---
EXAM DATE/TIME: 09/28/2016 06:49 [place] COMPARISON: CHEST SINGLE AP, September 26, 2016, 16:57. INDICATIONS : Coughing, short of breath, former smoker MEDICAL HISTORY : Chronic obstructive pulmonary disease. Myocardial infarction. SURGICAL HISTORY : None. ENCOUNTER: Subsequent ACUITY: 2 days PAIN SCORE: 0/10 LOCATION: Bilateral chest FINDINGS: The heart size is normal. There is a calcified granuloma in the left upper lung and possibly the righ t base. Lungs are otherwise clear. No effusion is seen. CONCLUSION: No acute disease. Stone Becker MD on September 28, 2016 at 7:13 Board Certified Radiologist. This report was verified electronically.
[2016-09-28] MEDS: RESP: ALBUTEROL 2.5 MG/IPRATROPIUM 0.5 MG NEB (SCH) NEB ×4 (08:00→19:39)
[2016-09-28] MEDS: FAMOTIDINE 20 MG TAB PO SCH (08:57)
[2016-09-28] MEDS: DOCUSATE SODIUM 100 MG CAP PO SCH ×2 (08:58→19:50)
[2016-09-28] MEDS: PANTOPRAZOLE SOD 40 MG DELAYED RELEASE TAB PO SCH (08:58)
[2016-09-28] MEDS: LACTOBACILLUS ACIDOPHILUS TAB PO SCH ×2 (08:58→19:50)
[2016-09-28] MEDS: RIVAROXABAN 10 MG TAB PO SCH (08:58)
--- NOTE | 2016-09-28 13:43 | HHI.PR ---
Subjective Remarks The patient was resting comfortably in bed. She said that she had some itching on her arms. She said she had a cough but was not coughing up any sputum. She said she felt better overall. Discussed with nursing. Objective Vitals Vital Signs Date Time Temp Pulse Resp B/P Pulse Ox O2 Delivery O2 Flow Rate FiO2 09/28/16 12:03 96.5 63 18 135/64 100 09/28/16 08:00 97.1 58 17 135/62 98 09/28/16 07:00 59 09/28/16 04:00 97.0 58 18 140/65 100 09/27/16 23:00 97.0 62 18 134/57 98 09/27/16 20:30 97.4 70 20 140/66 97 09/27/16 19:00 74 09/27/16 16:00 96.0 72 18 139/65 97 09/27/16 15:14 98 Nasal Cannula 2.00 I/O 09/27/16 09/27/16 09/27/16 09/28/16 09/28/16 09/28/16 07:00 15:00 23:00 07:00 15:00 23:00 Intake Total 480 ml 600 ml Balance 480 ml 600 ml Intake Oral 480 ml 600 ml # Voids 3 1 2 # Bowel Movements 1 0 1 Result Diagram: 09/27/1625 09/27/16 0625 Imaging Last Impressions Chest X-Ray 09/28/16 0600 Signed Impressions: Service Date/Time: Wednesday, September 28, 2016 06:49 - CONCLUSION: No acute disease. Stone Becker MD CT Angiography 09/26/16 0000 Signed Impressions: Service Date/Time: Monday, September 26, 2016 18:52 - CONCLUSION: 1. No evidence for pulmonary embolism. 2. Dilated pulmonary trunk likely pulmonary arterial hypertension. 3. Emphysema with minimal patchy densities could be infectious or inflammatory. 4. Dilated esophagus filled with fluid. Derick Yee MD Objective Remarks GENERAL: This is a well-nourished, well-developed patient, in no apparent distress. SKIN: No rashes, ecchymoses or lesions. Cool and dry. HEAD: Atraumatic. Normocephalic. EYES: Pupils equal round and reactive. ENT: Nose without bleeding, purulent drainage or septal hematoma. Airway patent. NECK: Trachea midline. No JVD CARDIOVASCULAR: Regular rate and rhythm. Systolic murmur appreciated. RESPIRATORY: Clear to auscultation. Decreased breath sounds, especially on the left lower lung field. GASTROINTESTINAL: Abdomen soft, non-tender, nondistended. MUSCULOSKELETAL: Extremities without clubbing, cyanosis, or edema. No joint tenderness, effusion, or edema noted. NEUROLOGICAL: Awake and alert. Motor and sensory grossly within normal limits. Normal speech. PSYCH: Mood and affect appreciated. Medications and IVs Current Medications Medications (Trade) Dose Ordered Sig/Glenny Route Start Time Stop Time Status Last Admin (NS Flush) 2 ml UNSCH PRN FLUSH 09/26/16 21:45 (NS Flush) 2 ml BID FLUSH 09/27/16 09:00 09/27/16 21:00 (Narcan Inj) 0.4 mg UNSCH PRN IV 09/26/16 21:45 (Protonix) 40 mg DAILY PO 09/27/16 09:00 09/28/16 08:58 (Atarax) 25 mg Q8H PRN PO 09/26/16 22:00 (Lactinex) 1 tab Q12HR PO 09/27/16 09:00 09/28/16 08:58 (Synthroid) 88 mcg DAILY@06 PO 09/27/16 06:00 09/28/16 05:58 (Remeron) 15 mg HS PO 09/27/16 21:00 09/27/16 20:20 (Xarelto) 10 mg DAILY PO 09/27/16 09:00 09/28/16 08:58 (Zanaflex) 2 mg BID PO 09/27/16 09:00 09/28/16 08:58 (Pepcid) 20 mg BID PO 09/27/16 09:00 09/28/16 08:57 (Tylenol) 650 mg Q4H PRN PO 09/27/16 01:15 09/27/16 20:24 Oxycodone HCl 5 mg 5 mg Q4H PRN PO 09/27/16 12:00 09/27/16 11:50 (Zithromax Inj/ NS 250 ml Inj) 250 ml @ 250 mls/hr Q24H IV 09/27/16 15:00 09/27/16 18:30 Docusate Sodium 100 mg 100 mg BID PO 09/27/16 21:00 09/28/16 08:58 (Rocephin Inj/NS Inj) 100 ml @ 200 mls/hr Q24H IV 09/27/16 14:00 09/27/16 14:58 (SoluMEDROL INJ) 40 mg Q8HR IV PUSH 09/27/16 22:00 09/28/16 05:58 (Vasotec Inj) 1.25 mg Q6H PRN IV PUSH 09/27/16 14:00 (Roxicodone) 10 mg Q4H PRN PO 09/27/16 14:00 09/28/16 01:47 (Corticaine 0.5% Cream) 1 applic Q8H PRN TOPICAL 09/28/16 13:45 UNV A/P Problem List: (1) COPD exacerbation ICD Code: J44.1 Status: Acute (2) Hypothyroidism ICD Code: E03.9 Status: Chronic (3) Depression ICD Code: F32.9 Status: Chronic Assessment and Plan COPD exacerbation Chest x-ray shows new bibasilar airspace opacities consistent with atelectasis versus consolidation. CT of the chest shows: No evidence for pulmonary embolism ; Dilated pulmonary trunk likely pulmonary arterial hypertension; Emphysema with minimal patchy densities could be infectious or inflammatory; Dilated esophagus filled with fluid. Appreciate pulmonology consultation. - DuoNeb's scheduled and as needed. - Solu-Medrol weaned to BID 09/28. - Oxygen as needed. - Incentive spirometry. - home oxygen walk test. - PT. Encourage ambulation. - continue ceftriaxone and azithromycin. HTN Likely exacerbated by shortness of breath. Improved 09/28. - Vasotec as needed. Hyperglycemia Blood sugar has been running high. S/t steroids. A1c not elevated. - wean off of steroids. Headache The pt has a history of migraines but does not feel like her typical migraine. - pain control as needed. DVT prophylaxis: Xarelto GI prophylaxis: Protonix Discharge Planning Awaiting clinical improvement. Girma Monk DO Sep 28, 2016 13:43
[2016-09-28] MEDS ORDERED: HYDROCORTISONE 0.5% CREAM 30 GM TOPICAL PRN (13:45)
[2016-09-28] MEDS ORDERED: guaiFENesin/CODEINE SYRUP 200 MG/20 MG/10 ML CUP PO PRN (13:45)
[2016-09-28] MEDS: SODIUM CHLORIDE 0.9% FLUSH 5 ML FLUSH FLUSH PRN ×2 (13:46→19:51)
[2016-09-28] MEDS: cefTRIAXone INJ 1,000 MG in SODIUM CHLORIDE 0.9% INJ 100 ML IV SCH (13:47)
--- NOTE | 2016-09-28 18:05 | HHI.PR ---
Subjective Remarks Has some cough and wheezing. Sputum is thick. No fever. Objective Vital Signs Date Time Temp Pulse Resp B/P Pulse Ox O2 Delivery O2 Flow Rate FiO2 09/28/16 16:00 97.0 65 18 131/61 100 09/28/16 12:03 96.5 63 18 135/64 100 09/28/16 08:00 97.1 58 17 135/62 98 09/28/16 07:00 59 09/28/16 04:00 97.0 58 18 140/65 100 09/27/16 23:00 97.0 62 18 134/57 98 09/27/16 20:30 97.4 70 20 140/66 97 09/27/16 19:00 74 I/O 09/27/16 09/27/16 09/27/16 09/28/16 09/28/16 09/28/16 07:00 15:00 23:00 07:00 15:00 23:00 Intake Total 480 ml 600 ml 480 ml Balance 480 ml 600 ml 480 ml Intake Oral 480 ml 600 ml 480 ml # Voids 3 1 2 4 # Bowel Movements 1 0 1 0 Result Diagram: 09/27/1625 09/27/16 0625 Objective Remarks GENERAL: This is a emaciated patient, in no apparent distress. SKIN: No rashes, ecchymoses or lesions. Cool and dry. HEAD: Atraumatic. Normocephalic. EYES: Pupils equal round and reactive. ENT: Nose without bleeding, purulent drainage or septal hematoma. Airway patent. NECK: Trachea midline. No JVD CARDIOVASCULAR: Regular rate and rhythm. Systolic murmur appreciated. RESPIRATORY: Decreased breath sounds, especially on the left lower lung field. Wheeze heard bilaterally with basal crackles GASTROINTESTINAL: Abdomen soft, non-tender, nondistended. MUSCULOSKELETAL: Extremities without clubbing, cyanosis, or edema. No joint tenderness, effusion, or edema noted. NEUROLOGICAL: Awake and alert. Motor and sensory grossly within normal limits. Normal speech. PSYCH: Mood and affect appreciated. Assessment and Plan Assessment and Plan Plan A/P Problem List: (1) COPD with Acute exacerbation ICD Code: J44.1 Status: Acute (2) Hypothyroidism ICD Code: E03.9 Status: Chronic (3) Depression (4) Basal atelectasis/Pneumonia Plan : 1. Continue antibiotics , Rocephin /Zithro 2. Cont solumedrol 40 mg bid. 3. PFT with Bronchodilator. 4. Nebs qid , duoneb. 5. Breo Ellipta 100 Mcg , 1 puff daily. 6. Could switch to PO antibiotics in 1 to 2 Days Nayeli Azar MD Sep 28, 2016 18:04
[2016-09-28] MEDS: hydrOXYzine HCL 25 MG TAB PO PRN (19:50)
[2016-09-28] MEDS: MIRTAZAPINE 15 MG TAB PO SCH (19:50)
[2016-09-28] MEDS: SODIUM CHLORIDE 0.9% FLUSH 5 ML FLUSH FLUSH SCH (19:51)
[2016-09-29] VITALS (8 sets, daily range): BP systolic 131–155; BP diastolic 65–74; PULSE 57–66; RESP 17–20; TEMP 96.3–98.8; O2SAT 97–100
[2016-09-29] MEDS: LEVOTHYROXINE SODIUM 88 MCG TAB PO SCH (05:21)
[2016-09-29] MEDS: RESP: ALBUTEROL 2.5 MG/IPRATROPIUM 0.5 MG NEB (SCH) NEB ×4 (07:46→19:31)
[2016-09-29] MEDS: LACTOBACILLUS ACIDOPHILUS TAB PO SCH ×2 (08:01→19:38)
[2016-09-29] MEDS: RIVAROXABAN 10 MG TAB PO SCH (08:01)
[2016-09-29] MEDS: AZITHROMYCIN 250 MG TAB PO SCH (08:01)
[2016-09-29] MEDS: FLUTICASONE 100 MCG/VILANTEROL 25 MCG INHALER INH SCH (08:01)
[2016-09-29] MEDS: PANTOPRAZOLE SOD 40 MG DELAYED RELEASE TAB PO SCH (08:01)
[2016-09-29] MEDS: DOCUSATE SODIUM 100 MG CAP PO SCH ×2 (08:01→19:39)
[2016-09-29] MEDS: methylPREDNISolone SOD SUCC 40 MG/1 ML VIAL IV PUSH SCH ×2 (08:02→19:40)
[2016-09-29] MEDS: SODIUM CHLORIDE 0.9% FLUSH 5 ML FLUSH FLUSH SCH ×2 (08:02→19:40)
[2016-09-29] MEDS: hydrOXYzine HCL 25 MG TAB PO PRN ×2 (11:11→19:40)
[2016-09-29] MEDS: cefTRIAXone INJ 1,000 MG in SODIUM CHLORIDE 0.9% INJ 100 ML IV SCH (12:08)
--- NOTE | 2016-09-29 14:27 | HHI.PR ---
Subjective Remarks The patient said she was feeling tired. She overall felt better. She has been tolerating a diet. She has been having bowel movements. She has no acute complaints at this time. Objective Vitals Vital Signs Date Time Temp Pulse Resp B/P Pulse Ox O2 Delivery O2 Flow Rate FiO2 09/29/16 11:05 97.3 66 20 136/67 99 09/29/16 08:00 96.6 60 19 155/74 97 09/29/16 08:00 57 09/29/16 07:47 99 Nasal Cannula 3.00 09/29/16 06:07 0 09/29/16 04:02 96.3 57 20 147/70 99 09/29/16 00:01 97.0 59 17 138/65 100 09/28/16 20:23 97.9 63 18 160/71 99 09/28/16 20:00 63 09/28/16 19:41 98 Nasal Cannula 2.00 09/28/16 16:00 97.0 65 18 131/61 100 I/O 09/28/16 09/28/16 09/28/16 09/29/16 09/29/16 09/29/16 07:00 15:00 23:00 07:00 15:00 23:00 Intake Total 480 ml 0 ml 0 ml Balance 480 ml 0 ml 0 ml Intake Oral 480 ml IV Total 0 ml 0 ml # Voids 2 4 1 2 # Bowel Movements 1 0 1 Result Diagram: 09/27/16 0625 09/27/16 0625 Imaging Last Impressions Chest X-Ray 09/28/16 0600 Signed Impressions: Service Date/Time: Wednesday, September 28, 2016 06:49 - CONCLUSION: No acute disease. Stone Becker MD CT Angiography 09/26/16 0000 Signed Impressions: Service Date/Time: Monday, September 26, 2016 18:52 - CONCLUSION: 1. No evidence for pulmonary embolism. 2. Dilated pulmonary trunk likely pulmonary arterial hypertension. 3. Emphysema with minimal patchy densities could be infectious or inflammatory. 4. Dilated esophagus filled with fluid. Derick Yee MD Objective Remarks GENERAL: This is a well-nourished, well-developed patient, in no apparent distress. SKIN: No rashes, ecchymoses or lesions. Cool and dry. HEAD: Atraumatic. Normocephalic. EYES: Pupils equal round and reactive. ENT: Nose without bleeding, purulent drainage or septal hematoma. Airway patent. NECK: Trachea midline. No JVD CARDIOVASCULAR: Regular rate and rhythm. Systolic murmur appreciated. RESPIRATORY: Clear to auscultation. Decreased breath sounds. GASTROINTESTINAL: Abdomen soft, non-tender, nondistended. MUSCULOSKELETAL: Extremities without clubbing, cyanosis, or edema. No joint tenderness, effusion, or edema noted. NEUROLOGICAL: Awake and alert. Motor and sensory grossly within normal limits. Normal speech. PSYCH: Mood and affect appreciated. Procedures None. Medications and IVs Current Medications Medications (Trade) Dose Ordered Sig/Glenny Route Start Time Stop Time Status Last Admin (NS Flush) 2 ml UNSCH PRN FLUSH 09/26/16 21:45 09/28/16 19:51 (NS Flush) 2 ml BID FLUSH 09/27/16 09:00 09/29/16 08:02 (Narcan Inj) 0.4 mg UNSCH PRN IV 09/26/16 21:45 (Protonix) 40 mg DAILY PO 09/27/16 09:00 09/29/16 08:01 (Atarax) 25 mg Q8H PRN PO 09/26/16 22:00 09/29/16 11:11 (Lactinex) 1 tab Q12HR PO 09/27/16 09:00 09/29/16 08:01 (Synthroid) 88 mcg DAILY@06 PO 09/27/16 06:00 09/29/16 05:21 (Remeron) 15 mg HS PO 09/27/16 21:00 09/28/16 19:50 (Xarelto) 10 mg DAILY PO 09/27/16 09:00 09/29/16 08:01 (Zanaflex) 2 mg BID PO 09/27/16 09:00 09/29/16 08:01 (Tylenol) 650 mg Q4H PRN PO 09/27/16 01:15 09/27/16 20:24 (Roxicodone) 5 mg Q4H PRN PO 09/27/16 12:00 09/27/16 11:50 Docusate Sodium 100 mg 100 mg BID PO 09/27/16 21:00 09/29/16 08:01 (Rocephin Inj/NS Inj) 100 ml @ 200 mls/hr Q24H IV 09/27/16 14:00 09/29/16 12:08 (Vasotec Inj) 1.25 mg Q6H PRN IV PUSH 09/27/16 14:00 (Roxicodone) 10 mg Q4H PRN PO 09/27/16 14:00 09/29/16 11:05 (Corticaine 0.5% Cream) 1 applic Q8H PRN TOPICAL 09/28/16 13:45 09/29/16 11:05 (Robitussin Ac 200-20 Mg/10 ml Liq) 10 ml Q6H PRN PO 09/28/16 13:45 09/28/16 13:53 (SoluMEDROL INJ) 40 mg BID IV PUSH 09/28/16 21:00 09/29/16 08:02 (Zithromax) 500 mg DAILY PO 09/29/16 09:00 09/29/16 08:01 (Breo Ellipta 100-25 Inh) 1 puff DAILY INH 09/29/16 09:00 09/29/16 08:01 A/P Problem List: (1) COPD exacerbation ICD Code: J44.1 Status: Acute (2) Hypothyroidism ICD Code: E03.9 Status: Chronic (3) Depression ICD Code: F32.9 Status: Chronic Assessment and Plan COPD exacerbation Chest x-ray shows new bibasilar airspace opacities consistent with atelectasis versus consolidation. CT of the chest shows: No evidence for pulmonary embolism ; Dilated pulmonary trunk likely pulmonary arterial hypertension; Emphysema with minimal patchy densities could be infectious or inflammatory; Dilated esophagus filled with fluid. Appreciate pulmonology consultation. - DuoNeb's scheduled and as needed. - Solu-Medrol weaned to BID 09/28. Switch to prednisone 09/30. - Oxygen as needed. - Incentive spirometry. - home oxygen walk test. - PT. Encourage ambulation. - continue IV ceftriaxone and PO azithromycin. - Brio Ellipta per pulmonary. HTN Likely exacerbated by shortness of breath. Stable 09/29. - Vasotec as needed. Hyperglycemia Blood sugar has been running high. S/t steroids. A1c not elevated. - wean off of steroids. Headache The pt has a history of migraines but does not feel like her typical migraine. - pain control as needed. DVT prophylaxis: Xarelto GI prophylaxis: Protonix Discharge Planning Anticipate d/c back to SNF in 1-2 days. Girma Monk DO Sep 29, 2016 14:27
[2016-09-29] MEDS: MIRTAZAPINE 15 MG TAB PO SCH (19:39)
[2016-09-30] VITALS (9 sets, daily range): BP systolic 114–141; BP diastolic 56–78; PULSE 54–90; RESP 14–20; TEMP 96.6–97.4; O2SAT 96–100
[2016-09-30] MEDS: LEVOTHYROXINE SODIUM 88 MCG TAB PO SCH (05:05)
[2016-09-30] MEDS: SODIUM CHLORIDE 0.9% FLUSH 5 ML FLUSH FLUSH SCH ×2 (07:32→21:16)
[2016-09-30] MEDS: PANTOPRAZOLE SOD 40 MG DELAYED RELEASE TAB PO SCH (07:33)
[2016-09-30] MEDS: hydrOXYzine HCL 25 MG TAB PO PRN ×2 (07:33→21:15)
[2016-09-30] MEDS: AZITHROMYCIN 250 MG TAB PO SCH (07:33)
[2016-09-30] MEDS: FLUTICASONE 100 MCG/VILANTEROL 25 MCG INHALER INH SCH (07:33)
[2016-09-30] MEDS: LACTOBACILLUS ACIDOPHILUS TAB PO SCH ×2 (07:33→21:13)
[2016-09-30] MEDS: DOCUSATE SODIUM 100 MG CAP PO SCH ×2 (07:33→21:00)
[2016-09-30] MEDS: methylPREDNISolone SOD SUCC 40 MG/1 ML VIAL IV PUSH SCH (07:34)
[2016-09-30] MEDS: RIVAROXABAN 10 MG TAB PO SCH (07:35)
[2016-09-30] MEDS: RESP: ALBUTEROL 2.5 MG/IPRATROPIUM 0.5 MG NEB (SCH) NEB ×4 (08:56→20:00)
[2016-09-30] MEDS ORDERED: CEFT500T3 PO (09:50)
[2016-09-30] MEDS ORDERED: PRED10PA2 PO (09:50)
[2016-09-30] MEDS ORDERED: FLUT1INH INH (09:50)
[2016-09-30] MEDS ORDERED: OXYC1TAB63 PO (09:50)
[2016-09-30] MEDS ORDERED: GUAI100S5 PO (09:50)
[2016-09-30] MEDS ORDERED: OXYGENTANK NAS.CANULA (09:50)
--- NOTE | 2016-09-30 09:51 | HHI.DCPOC ---
Discharge Care Plan Diagnosis: (1) Chronic obstructive pulmonary disease (2) Gastroesophageal reflux disease (3) Hypertension (4) COPD exacerbation (5) Bronchitis Goals to Promote Your Health * To prevent worsening of your condition and complications * To maintain your health at the optimal level Directions to Meet Your Goals Take your medications as prescribed Follow your dietary instruction Follow activity as directed Keep your appointments as scheduled Take your immunizations and boosters as scheduled If your symptoms worsen call your PCP, if no PCP go to Urgent Care Center or Emergency Room Smoking is Dangerous to Your Health. Avoid second hand smoke Call the 24-hour hour crisis hotline for domestic abuse at Girma Monk DO Sep 30, 2016 09:51
--- NOTE | 2016-09-30 09:56 | HHI.DS ---
Discharge Summary Admission Date Sep 28, 2016 at 08:34 Discharge Date: Oct 01, 2016 Admitting Diagnosis bronchitis, COPD exacerbation, dyspnea (1) COPD exacerbation ICD Code: J44.1 Diagnosis: Principal (2) Hypothyroidism ICD Code: E03.9 (3) Depression ICD Code: F32.9 Procedures None. Brief History - From Admission History taken from patient and ED physician. 76 her old female with a history of COPD, depression/anxiety and hypothyroidism presented to the ED with complaints of shortness of breath upon exertion today. Patient states she went to go see her dog at the vet and became short of breath while walking. She states she does have COPD but only uses nebulizers about every 3 months or so. She denies any associated chest pain, dizziness, fever or chills. She is currently residing [facility] finishing up rehabilitation for a right greater trochanter hip fracture that was nonsurgical since July 2016. Dr. Garzon is her primary care physician. Dr. Gasca is her measurement advisor, whom follows her regularly for a known murmur , patient states last echocardiogram has been within the last 6 months. CBC/BMP: 09/27/16 0625 09/27/16 0625 Imaging Last Impressions Chest X-Ray 09/28/16 0600 Signed Impressions: Service Date/Time: Wednesday, September 28, 2016 06:49 - CONCLUSION: No acute disease. Stone Becker MD CT Angiography 09/26/16 0000 Signed Impressions: Service Date/Time: Monday, September 26, 2016 18:52 - CONCLUSION: 1. No evidence for pulmonary embolism. 2. Dilated pulmonary trunk likely pulmonary arterial hypertension. 3. Emphysema with minimal patchy densities could be infectious or inflammatory. 4. Dilated esophagus filled with fluid. Derick Yee MD PE at Discharge GENERAL: This is a well-nourished, well-developed patient, in no apparent distress. SKIN: No rashes, ecchymoses or lesions. Cool and dry. HEAD: Atraumatic. Normocephalic. EYES: Pupils equal round and reactive. ENT: Nose without bleeding, purulent drainage or septal hematoma. Airway patent. NECK: Trachea midline. No JVD CARDIOVASCULAR: Regular rate and rhythm. Systolic murmur appreciated. RESPIRATORY: Clear to auscultation. Decreased breath sounds. GASTROINTESTINAL: Abdomen soft, non-tender, nondistended. MUSCULOSKELETAL: Extremities without clubbing, cyanosis, or edema. No joint tenderness, effusion, or edema noted. NEUROLOGICAL: Awake and alert. Motor and sensory grossly within normal limits. Normal speech. PSYCH: Mood and affect appreciated. Pt update on day of discharge The patient was resting comfortably in bed. She says she slept well. She says she has been ambulating to the commode without much of a problem. She is tolerating a diet. Discussed with case management. Hospital Course COPD exacerbation Chest x-ray shows new bibasilar airspace opacities consistent with atelectasis versus consolidation. CT of the chest shows: No evidence for pulmonary embolism ; Dilated pulmonary trunk likely pulmonary arterial hypertension; Emphysema with minimal patchy densities could be infectious or inflammatory; Dilated esophagus filled with fluid. Pulmonology was consulted. The pt received DuoNeb' s scheduled and as needed. She was started on Solu-Medrol and will be transitioned to a prednisone taper. She had a home oxygen test per respiratory therapy and will benefit from oxygen upon discharge. She received incentive spirometry. She worked with PT. She was continued on ceftriaxone and azithromycin. She was started on Brio Ellipta per pulmonary. She will be discharged on a course of Ceftin. She will follow up with pulmonology as an outpt. Hyperglycemia Hemoglobin A1c was not elevated. She will gradually wean off of steroids. Pt Condition on Discharge: Stable Discharge Disposition: Discharge to SNF Discharge Time: > 30 minutes Discharge Instructions DIET: Follow Instructions for: Heart Healthy Diet Activities you can perform: Weight Bearing as Chung Follow up Referrals: PCP Follow-up - 1 Week Pulmonology - 1 Week with Nayeli Azar MD New Medications: Cefuroxime (Ceftin) 500 Mg Tab 500 MG PO BID Infection #8 Ref 0 TAB Oxygen tank (Oxygen tank) 1 Ea Tank 2 LITER CHRISTEN.CANULA CONTINUOUS Oxygen Concentrator Portable Gaseous 2 L/min via Nasal Cannula Continuous For 99 months HYPOXEMIA PREVENTION #2 CYLINDER Prednisone (48) 10 mg tab Dose Pack (Prednisone (48) 10 mg tab Dose Pack) 10 Mg Dspk 10 MG PO DIRECTED Inflammation #1 Ref 0 DSPK Fluticasone-Vilanterol Inh (Breo Ellipta Inh) 100-25 Mcg/Act Inh 1 PUFF INH DAILY COPD #2 INHALER Guaifenesin-Codeine Liq (Guaifenesin-Codeine Liq) 100-10 Mg/5 Ml Soln 5 ML PO Q6H PRN cough #1 BOTTLE Continued Medications: Acetaminophen (Acetaminophen) 325 Mg Tab 650 MG PO Q6HR PRN PAIN SCALE 1 TO 3 #90 Ref 1 TAB Bacitracin Topical (Bacitracin Topical) 500 Unit/Gm Oint 0 APPLIC TOP BID Days 14 Ref 0 TUBE Bethanechol (Urecholine) 25 Mg Tab 12.5 MG PO QID Urinary Symptom Managemen #120 Ref 1 TAB Bisacodyl Supp (Bisac-Evac Supp) 10 Mg Supp 1 MG RECTAL DAILY PRN CONSTIPATION #14 Ref 1 Celecoxib (Celebrex) 100 Mg Cap 100 MG PO BID Pain Management Ref 0 CAP Cholecalciferol (Vitamin D-400) 400 Unit Tab 400 UNITS PO DAILY Nutritional Supplement #30 Ref 1 BOTTLE Cimetidine (Cimetidine) 300 Mg Tab 300 MG PO BID STOMACH ACIDITY Ref 0 TAB Emollient (Aquaphor) 1 Oin Oin 1 APPLIC TOP Q12HR Days 30 Ref 1 TUBE Guaifenesin ER 12 HR (Mucinex ER 12 HR) 600 Mg Tiffanie 600 MG PO BID #60 Ref 0 TAB Hydrocortisone Topical (Hydrocortisone Topical) 2.5% Cream 0 APPLIC TOP TID PRN TO NON-OPEN AREAS ITCHING Days 30 Ref 1 TUBE Hydroxyzine HCl (Hydroxyzine HCl) 25 Mg Tab 25 MG PO Q8H PRN ITCHING #60 Ref 1 TAB Lactobacillus Acidophilus (Acidophilus/l-Sporogenes) 1 Tab Tab 1 TAB PO Q12HR #60 Ref 1 TAB Levothyroxine (Levothyroxine) 88 Mcg Tab 88 MCG PO DAILY Thyroid #30 Ref 1 TAB Melatonin (Melatonin) 1 Mg Cap Mirtazapine (Mirtazapine) 15 Mg Tab 15 MG PO HS #30 Ref 1 TAB Omeprazole (Omeprazole) 40 Mg Cap 40 MG PO DAILY #30 Ref 1 CAP Oxycodone-Acetaminophen (Oxycodone-Acetaminophen) 5-325 mg Tab 1 TAB PO Q6HR Pain Management #30 Ref 0 TAB (This prescription has been renewed) Polyethylene Glycol 3350 Powder (Polyethylene Glycol 3350 Powder) 17 Gm Pow 17 GM PO DAILY PRN CONSTIPATION #30 Ref 1 Rivaroxaban (Xarelto) 10 Mg Tab 10 MG PO DAILY #13 Ref 0 TAB Tizanidine (Tizanidine) 2 Mg Cap 2 MG PO BID Muscle Spasm Ref 0 CAP Discontinued Medications: Azithromycin (Zithromax Z-Joon) 250 Mg Dspk 250 MG PO DIRECTED 500 MG (2 tabs) day 1, then 1 tab days 2-5. Infection #1 Ref 0 DSPK Hydroxyzine HCl (Hydroxyzine HCl) 25 Mg Tab 25 MG PO DAILY #14 Ref 1 TAB Lactobacillus Rhamnosus (GG) (Culturelle) 10 B Cell Cap 1 CAP PO BID Nutritional Supplement Ref 0 CAP Prednisone (Prednisone) 5 Mg Tab 5 MG PO DAILY Ref 0 TAB Girma Monk DO Sep 30, 2016 09:56
--- NOTE | 2016-09-30 10:59 | HHI.PR ---
Subjective Remarks The patient was resting comfortably. She had no acute complaints. Objective Vitals Vital Signs Date Time Temp Pulse Resp B/P Pulse Ox O2 Delivery O2 Flow Rate FiO2 09/30/16 08:58 98 Nasal Cannula 2.00 09/30/16 08:00 58 09/30/16 08:00 96.7 54 18 141/67 100 09/30/16 06:15 16 09/30/16 04:00 96.7 56 14 116/56 100 09/30/16 00:00 96.6 60 16 136/63 98 09/29/16 20:00 98.8 63 18 151/69 98 09/29/16 19:34 98 Nasal Cannula 2.00 09/29/16 16:55 2.00 09/29/16 15:00 97.4 60 18 131/65 100 09/29/16 11:05 97.3 66 20 136/67 99 I/O 09/29/16 09/29/16 09/29/16 09/30/16 09/30/16 09/30/16 07:00 15:00 23:00 07:00 15:00 23:00 Intake Total 0 ml Balance 0 ml IV Total 0 ml # Voids 2 1 4 # Bowel Movements 1 0 2 Result Diagram: 09/27/16 0625 09/27/16 0625 Imaging Last Impressions Chest X-Ray 09/28/16 0600 Signed Impressions: Service Date/Time: Wednesday, September 28, 2016 06:49 - CONCLUSION: No acute disease. Stone Becker MD CT Angiography 09/26/16 0000 Signed Impressions: Service Date/Time: Monday, September 26, 2016 18:52 - CONCLUSION: 1. No evidence for pulmonary embolism. 2. Dilated pulmonary trunk likely pulmonary arterial hypertension. 3. Emphysema with minimal patchy densities could be infectious or inflammatory. 4. Dilated esophagus filled with fluid. Derick Yee MD Objective Remarks GENERAL: This is a well-nourished, well-developed patient, in no apparent distress. SKIN: No rashes, ecchymoses or lesions. Cool and dry. HEAD: Atraumatic. Normocephalic. EYES: Pupils equal round and reactive. ENT: Nose without bleeding, purulent drainage or septal hematoma. Airway patent. NECK: Trachea midline. No JVD CARDIOVASCULAR: Regular rate and rhythm. Systolic murmur appreciated. RESPIRATORY: Clear to auscultation. Decreased breath sounds. GASTROINTESTINAL: Abdomen soft, non-tender, nondistended. MUSCULOSKELETAL: Extremities without clubbing, cyanosis, or edema. No joint tenderness, effusion, or edema noted. NEUROLOGICAL: Awake and alert. Motor and sensory grossly within normal limits. Normal speech. PSYCH: Mood and affect appreciated. Procedures None. Medications and IVs Current Medications Medications (Trade) Dose Ordered Sig/Glenny Route Start Time Stop Time Status Last Admin (NS Flush) 2 ml UNSCH PRN FLUSH 09/26/16 21:45 09/28/16 19:51 (NS Flush) 2 ml BID FLUSH 09/27/16 09:00 09/30/16 07:32 (Narcan Inj) 0.4 mg UNSCH PRN IV 09/26/16 21:45 (Protonix) 40 mg DAILY PO 09/27/16 09:00 09/30/16 07:33 (Atarax) 25 mg Q8H PRN PO 09/26/16 22:00 09/30/16 07:33 (Lactinex) 1 tab Q12HR PO 09/27/16 09:00 09/30/16 07:33 (Synthroid) 88 mcg DAILY@06 PO 09/27/16 06:00 09/30/16 05:05 (Remeron) 15 mg HS PO 09/27/16 21:00 09/29/16 19:39 (Xarelto) 10 mg DAILY PO 09/27/16 09:00 09/30/16 07:35 (Zanaflex) 2 mg BID PO 09/27/16 09:00 09/30/16 07:34 (Tylenol) 650 mg Q4H PRN PO 09/27/16 01:15 09/27/16 20:24 (Roxicodone) 5 mg Q4H PRN PO 09/27/16 12:00 09/27/16 11:50 Docusate Sodium 100 mg 100 mg BID PO 09/27/16 21:00 09/30/16 07:33 (Rocephin Inj/NS Inj) 100 ml @ 200 mls/hr Q24H IV 09/27/16 14:00 09/29/16 12:08 (Vasotec Inj) 1.25 mg Q6H PRN IV PUSH 09/27/16 14:00 (Roxicodone) 10 mg Q4H PRN PO 09/27/16 14:00 09/30/16 05:07 (Corticaine 0.5% Cream) 1 applic Q8H PRN TOPICAL 09/28/16 13:45 09/29/16 11:05 (Robitussin Ac 200-20 Mg/10 ml Liq) 10 ml Q6H PRN PO 09/28/16 13:45 09/28/16 13:53 (SoluMEDROL INJ) 40 mg BID IV PUSH 09/28/16 21:00 09/30/16 07:34 (Zithromax) 500 mg DAILY PO 09/29/16 09:00 09/30/16 07:33 (Breo Ellipta 100-25 Inh) 1 puff DAILY INH 09/29/16 09:00 09/30/16 07:33 A/P Problem List: (1) COPD exacerbation ICD Code: J44.1 Status: Acute (2) Hypothyroidism ICD Code: E03.9 Status: Chronic (3) Depression ICD Code: F32.9 Status: Chronic Assessment and Plan COPD exacerbation Chest x-ray shows new bibasilar airspace opacities consistent with atelectasis versus consolidation. CT of the chest shows: No evidence for pulmonary embolism ; Dilated pulmonary trunk likely pulmonary arterial hypertension; Emphysema with minimal patchy densities could be infectious or inflammatory; Dilated esophagus filled with fluid. Appreciate pulmonology consultation. Status post home oxygen walk test. - DuoNeb's scheduled and as needed. - Solu-Medrol weaned to BID 09/28. Switch to prednisone 10/01. - Oxygen as needed. - Incentive spirometry. - PT. Encourage ambulation. - continue IV ceftriaxone and PO azithromycin. - Brio Ellipta per pulmonary. HTN Likely exacerbated by shortness of breath. Stable 09/30. - Vasotec as needed. Hyperglycemia Blood sugar has been running high. S/t steroids. A1c not elevated. - wean off of steroids. Headache The pt has a history of migraines but does not feel like her typical migraine. - pain control as needed. DVT prophylaxis: Xarelto GI prophylaxis: Protonix Discharge Planning DC to SNF when bed available. Girma Monk DO Sep 30, 2016 10:59
[2016-09-30] MEDS: cefTRIAXone INJ 1,000 MG in SODIUM CHLORIDE 0.9% INJ 100 ML IV SCH (12:08)
[2016-09-30] MEDS: MIRTAZAPINE 15 MG TAB PO SCH (21:14)
[2016-10-01] VITALS (8 sets, daily range): BP systolic 121–166; BP diastolic 60–84; PULSE 55–73; RESP 18–20; TEMP 95.2–97.3; O2SAT 95–99
[2016-10-01] MEDS: LEVOTHYROXINE SODIUM 88 MCG TAB PO SCH (05:49)
[2016-10-01] MEDS: RESP: ALBUTEROL 2.5 MG/IPRATROPIUM 0.5 MG NEB (SCH) NEB ×3 (08:00→16:00)
[2016-10-01] MEDS: SODIUM CHLORIDE 0.9% FLUSH 5 ML FLUSH FLUSH SCH ×2 (08:41→20:19)
[2016-10-01] MEDS: predniSONE 50 MG TAB PO SCH (08:41)
[2016-10-01] MEDS: DOCUSATE SODIUM 100 MG CAP PO SCH ×3 (08:41→20:19)
[2016-10-01] MEDS: PANTOPRAZOLE SOD 40 MG DELAYED RELEASE TAB PO SCH (08:42)
[2016-10-01] MEDS: LACTOBACILLUS ACIDOPHILUS TAB PO SCH ×2 (08:44→20:19)
[2016-10-01] MEDS: RIVAROXABAN 10 MG TAB PO SCH (08:44)
[2016-10-01] MEDS: AZITHROMYCIN 250 MG TAB PO SCH (08:45)
[2016-10-01] MEDS: FLUTICASONE 100 MCG/VILANTEROL 25 MCG INHALER INH SCH (08:46)
[2016-10-01] MEDS: hydrOXYzine HCL 25 MG TAB PO PRN ×2 (08:46→17:48)
--- NOTE | 2016-10-01 09:01 | MB ---
cc: SHELLEY ROMO DATE OF CONSULTATION: 09/27/2016 REASON FOR CONSULTATION COPD and respiratory distress. HISTORY OF PRESENT ILLNESS This is a 76-year-old lady who was admitted with complaints of shortness of breath, wheezing and cough. The patient apparently was dyspneic with activity and has been using a nebulizer for history of COPD but just could not catch her breath and thus was brought to the emergency room. She has been at the [facility] rehab facility following a fracture of the right hip. She denies being on any oxygen in the past. Following admission, however, she was noted to be hypoxic and started on O2 at 2.5 liters. The patient has no chest pain, but she does have a cough and brings up very little mucus. A chest CT that was done upon admission showed evidence of pulmonary hypertension and a patchy infiltrate in the lower lung alvarez and a dilated esophagus. There was no PE. PAST MEDICAL HISTORY 1. Hypertension. 2. Hypothyroidism. 3. COPD/emphysema. 4. Fracture of the right hip. PAST SURGICAL HISTORY 1. Thyroidectomy. 2. Hysterectomy. 3. Right knee replacement surgery. 4. Cholecystectomy. MEDICATIONS 1. Zithromax 500 mg IV. 2. Rocephin one gram IV daily. 3. Xarelto 10 mg q. Daily. 4. Hydroxyzine 25 mg daily. 5. Mucinex one b.i.d. 6. Bethanechol 12.5 mg q.i.d. 7. Prednisone 5 mg a day. 8. Celebrex 100 mg b.i.d. ALLERGIES 1. DURAGESIC PATCH. 2. SULFA. 3. TETRACYCLINE. 4. CIPRO. FAMILY HISTORY Significant for heart disease. HABITS The patient smoked one pack per day for over 40 years and has quit. No significant alcohol use. REVIEW OF SYSTEMS The patient has lost weight. She has a postnasal drip, cough and wheezing. Epigastric distress. No nausea or vomiting. No urinary symptoms. No leg swelling or calf muscle pain. She has anxiety attacks. PHYSICAL EXAMINATION GENERAL: This thinly built elderly white female is alert, anxious, pale and mildly dyspneic. VITAL SIGNS: Blood pressure 140/70, pulse 68, respirations 22, temperature 98.2. HEENT: Normocephalic. Pupils reactive and equal. Tongue is moist. Throat is clear. Nasal mucosa is injected. NECK: Supple. No bruits or thyroid enlargement. No lymphadenopathy. CHEST: Equal movements. Diffuse wheezes throughout both lung alvarez. Prolonged expirations and occasional crackles at the bases, mostly the right side. HEART: Heart sounds are irregular, S1 and S2, with no murmur and no S3. ABDOMEN: Soft, protuberant, without masses. No organomegaly or tenderness. The bowel sounds are active. EXTREMITIES: No edema. No calf tenderness. NEUROLOGIC: Reflexes are 1+ with no gross motor deficit. Cranial nerves are grossly intact. RECTAL: Exam is deferred. SKIN: No lesions noted. IMPRESSION 1. COPD with acute exacerbation. 2. Severe emphysema. 3. Cor pulmonale. 4. Hypertension. 5. History of right hip fracture. PLAN The patient has been placed on O2 at two liters and we will continue with Rocephin one gram IV daily, Zithromax 500 mg IV daily and Solu-Medrol 40 mg IV every eight hours. A bedside pulmonary function study will be obtained. Sputum will be sent for Gram stain and culture. Nebulized DuoNeb solution will continue q.i.d. the patient may require home oxygen and room air sat will be obtained tomorrow. If she qualifies, O2 at two liters will be arranged for the home. Thank you Dr. Monk for this consultation. MD YOVANNY Laguerre/LUZ /6:48 PM /8:33 AM
--- NOTE | 2016-10-01 12:24 | HHI.PR ---
Subjective Remarks Better today. Up with help.No fever.On O2 2L. Objective Vital Signs Date Time Temp Pulse Resp B/P Pulse Ox O2 Delivery O2 Flow Rate FiO2 10/01/16 12:20 95.2 63 18 130/60 98 10/01/16 08:58 95 Nasal Cannula 1.00 10/01/16 08:00 95.9 64 20 166/73 98 10/01/16 06:36 18 10/01/16 04:42 97.3 59 20 138/65 99 09/30/16 23:33 96.7 60 20 137/62 100 09/30/16 20:41 Nasal Cannula 2.00 09/30/16 20:35 97.4 64 18 125/63 96 09/30/16 20:00 97.0 90 16 117/78 100 09/30/16 16:00 96.8 62 18 114/61 99 I/O 09/30/16 09/30/16 09/30/16 10/01/16 10/01/16 10/01/16 07:00 15:00 23:00 07:00 15:00 23:00 Intake Total 480 ml Balance 480 ml Intake Oral 480 ml # Voids 4 2 1 # Bowel Movements 2 1 1 Result Diagram: 09/27/1662409/27/16624 Objective Remarks GENERAL: This is a emaciated patient, in no apparent distress. SKIN: No rashes, ecchymoses or lesions. HEAD: Atraumatic. Normocephalic. EYES: Pupils equal round and reactive. ENT: Nose without bleeding, purulent drainage or septal hematoma. Airway patent. NECK: Trachea midline. No JVD CARDIOVASCULAR: Regular rate and rhythm. Systolic murmur appreciated. RESPIRATORY: Decreased breath sounds, especially on the left lower lung field. Wheeze heard bilaterally with occ basal crackles GASTROINTESTINAL: Abdomen soft, non-tender, nondistended. MUSCULOSKELETAL: Extremities without clubbing, cyanosis, or edema. No joint tenderness, effusion, or edema noted. NEUROLOGICAL: Awake and alert. Motor and sensory grossly within normal limits. Normal speech. PSYCH: Mood and affect appreciated. Assessment and Plan Assessment and Plan Plan A/P Problem List: (1) COPD with Acute exacerbation ICD Code: J44.1 Status: Acute (2) Hypothyroidism ICD Code: E03.9 Status: Chronic (3) Depression (4) Basal atelectasis/Pneumonia Plan : 1. Continue antibiotics , and switch to PO Ceftin 500 mg bid X 7 days 2. Cont Predniosne 40 mg daily and taper over 3 weeks 3. Home this week 4. Nebs qid , duoneb. 5. Breo Ellipta 100 Mcg , 1 puff daily. 6. Will F/U as OP in 2 weeks Nayeli Azar MD Oct 01, 2016 12:24
--- NOTE | 2016-10-01 14:45 | HHI.FF ---
Face to Face Verification Diagnosis: (1) Chronic obstructive pulmonary disease (2) Depression (3) COPD exacerbation Physical Therapy Order: Improve ambulation, Strength and gait training Home Health Nursing Order: Medical education Signs/symptoms of disease process Nursing assessment with vital signs I have seen patient Luana Moon on 10/01/16. My clinical findings support the need for the requested home health care services because: Patient has SOB Limited ability to care for self Need for psychosocial assistance I certify that my clinical findings support that this patient is homebound because: Hx COPD- exertion dyspnea/weakness Unsafe to leave home unassisted Unable to use public transportation Jesu Gee MD Oct 01, 2016 14:45
--- NOTE | 2016-10-01 20:01 | HHI.PR ---
Subjective Remarks no major overnight events patient denies cp/sob denies fevers/chills stable vital signs Objective Vitals Vital Signs Date Time Temp Pulse Resp B/P Pulse Ox O2 Delivery O2 Flow Rate FiO2 10/01/16 19:38 97 Nasal Cannula 1.00 10/01/16 18:31 17 10/01/16 16:00 95.8 68 18 125/84 98 10/01/16 12:20 95.2 63 18 130/60 98 10/01/16 10:10 55 10/01/16 08:58 95 Nasal Cannula 1.00 10/01/16 08:00 95.9 64 20 166/73 98 10/01/16 04:42 97.3 59 20 138/65 99 09/30/16 23:33 96.7 60 20 137/62 100 09/30/16 20:41 Nasal Cannula 2.00 09/30/16 20:35 97.4 64 18 125/63 96 I/O 09/30/16 09/30/16 09/30/16 10/01/16 10/01/16 10/01/16 07:00 15:00 23:00 07:00 15:00 23:00 Intake Total 480 ml 960 ml Balance 480 ml 960 ml Intake Oral 480 ml 960 ml # Voids 4 2 1 5 # Bowel Movements 2 1 1 1 Result Diagram: 09/27/16 0625 09/27/16 0625 Imaging Last Impressions Chest X-Ray 09/28/16 0600 Signed Impressions: Service Date/Time: Wednesday, September 28, 2016 06:49 - CONCLUSION: No acute disease. Stone Becker MD CT Angiography 09/26/16 0000 Signed Impressions: Service Date/Time: Monday, September 26, 2016 18:52 - CONCLUSION: 1. No evidence for pulmonary embolism. 2. Dilated pulmonary trunk likely pulmonary arterial hypertension. 3. Emphysema with minimal patchy densities could be infectious or inflammatory. 4. Dilated esophagus filled with fluid. Derick Yee MD Objective Remarks GENERAL: This is a well-nourished, well-developed patient, in no apparent distress. SKIN: No rashes, ecchymoses or lesions. Cool and dry. HEAD: Atraumatic. Normocephalic. EYES: Pupils equal round and reactive. ENT: Nose without bleeding, purulent drainage or septal hematoma. Airway patent. NECK: Trachea midline. No JVD CARDIOVASCULAR: Regular rate and rhythm. Systolic murmur appreciated. RESPIRATORY: Clear to auscultation. Decreased breath sounds. GASTROINTESTINAL: Abdomen soft, non-tender, nondistended. MUSCULOSKELETAL: Extremities without clubbing, cyanosis, or edema. No joint tenderness, effusion, or edema noted. NEUROLOGICAL: Awake and alert. Motor and sensory grossly within normal limits. Normal speech. PSYCH: Mood and affect appreciated. Procedures None. Medications and IVs Current Medications Medications (Trade) Dose Ordered Sig/Glenny Route Start Time Stop Time Status Last Admin (NS Flush) 2 ml UNSCH PRN FLUSH 09/26/16 21:45 09/28/16 19:51 (NS Flush) 2 ml BID FLUSH 09/27/16 09:00 10/01/16 20:19 (Narcan Inj) 0.4 mg UNSCH PRN IV 09/26/16 21:45 (Protonix) 40 mg DAILY PO 09/27/16 09:00 10/01/16 08:42 (Atarax) 25 mg Q8H PRN PO 09/26/16 22:00 10/01/16 17:48 (Lactinex) 1 tab Q12HR PO 09/27/16 09:00 10/01/16 20:19 (Synthroid) 88 mcg DAILY@06 PO 09/27/16 06:00 10/01/16 05:49 (Remeron) 15 mg HS PO 09/27/16 21:00 10/01/16 20:19 (Xarelto) 10 mg DAILY PO 09/27/16 09:00 10/01/16 08:44 (Zanaflex) 2 mg BID PO 09/27/16 09:00 10/01/16 20:19 (Tylenol) 650 mg Q4H PRN PO 09/27/16 01:15 09/27/16 20:24 (Roxicodone) 5 mg Q4H PRN PO 09/27/16 12:00 09/27/16 11:50 (Colace) 100 mg BID PO 09/27/16 21:00 09/30/16 07:33 (Vasotec Inj) 1.25 mg Q6H PRN IV PUSH 09/27/16 14:00 (Roxicodone) 10 mg Q4H PRN PO 09/27/16 14:00 10/01/16 17:31 (Corticaine 0.5% Cream) 1 applic Q8H PRN TOPICAL 09/28/16 13:45 09/29/16 11:05 (Robitussin Ac 200-20 Mg/10 ml Liq) 10 ml Q6H PRN PO 09/28/16 13:45 09/28/16 13:53 (Zithromax) 500 mg DAILY PO 09/29/16 09:00 10/01/16 08:45 (Breo Ellipta 100-25 Inh) 1 puff DAILY INH 09/29/16 09:00 10/01/16 08:46 (Deltasone) 50 mg DAILY PO 10/01/16 09:00 10/01/16 08:41 (Ceftin) 500 mg Q12HR PO 10/01/16 21:00 10/01/16 20:19 Urinary Catheter: No Vascular Central Line Catheter: No A/P Problem List: (1) COPD exacerbation ICD Code: J44.1 Status: Acute (2) Hypothyroidism ICD Code: E03.9 Status: Chronic (3) Depression ICD Code: F32.9 Status: Chronic Assessment and Plan COPD exacerbation Chest x-ray shows new bibasilar airspace opacities consistent with atelectasis versus consolidation. CT of the chest shows: No evidence for pulmonary embolism ; Dilated pulmonary trunk likely pulmonary arterial hypertension; Emphysema with minimal patchy densities could be infectious or inflammatory; Dilated esophagus filled with fluid. Appreciate pulmonology consultation. Status post home oxygen walk test. - DuoNeb's scheduled and as needed. - Solu-Medrol weaned to BID 09/28. Switch to prednisone 10/01. - Oxygen as needed. - Incentive spirometry. - PT. Encourage ambulation. - continue IV ceftriaxone and PO azithromycin. - Brio Ellipta per pulmonary. HTN Stable BP, continue to monitor vital signs. - Vasotec as needed. Hyperglycemia Blood sugar has been running high. S/t steroids. A1c not elevated. - wean off of steroids. - BS stable. Headache The pt has a history of migraines but does not feel like her typical migraine. - pain control as needed. DVT prophylaxis: Xarelto GI prophylaxis: Protonix Discharge Planning Dc pending placement Jesu Gee MD Oct 01, 2016 20:01
[2016-10-01] MEDS: CEFUROXIME AXETIL 500 MG TAB PO SCH (20:19)
[2016-10-01] MEDS: MIRTAZAPINE 15 MG TAB PO SCH (20:19)
[2016-10-02] VITALS: BP 126/59; PULSE 60; RESP 18; TEMP 97.6; O2SAT 99
[2016-10-02] MEDS: hydrOXYzine HCL 25 MG TAB PO PRN ×2 (03:53→13:38)
[2016-10-02 04:17] VITALS: BP 120/57; PULSE 55; RESP 17; TEMP 97.1; O2SAT 98
[2016-10-02] MEDS: LEVOTHYROXINE SODIUM 88 MCG TAB PO SCH (05:30)
[2016-10-02 07:46] VITALS: O2SAT 96
[2016-10-02] MEDS: RESP: ALBUTEROL 2.5 MG/IPRATROPIUM 0.5 MG NEB (SCH) NEB ×2 (07:46→11:43)
[2016-10-02 08:00] VITALS: BP 121/58; PULSE 60; RESP 16; TEMP 95.2; O2SAT 100
[2016-10-02] MEDS: RIVAROXABAN 10 MG TAB PO SCH (08:40)
[2016-10-02] MEDS: PANTOPRAZOLE SOD 40 MG DELAYED RELEASE TAB PO SCH (08:41)
[2016-10-02] MEDS: predniSONE 50 MG TAB PO SCH (08:41)
[2016-10-02] MEDS: LACTOBACILLUS ACIDOPHILUS TAB PO SCH (08:41)
[2016-10-02] MEDS: CEFUROXIME AXETIL 500 MG TAB PO SCH (08:42)
[2016-10-02] MEDS: AZITHROMYCIN 250 MG TAB PO SCH (08:42)
[2016-10-02] MEDS: FLUTICASONE 100 MCG/VILANTEROL 25 MCG INHALER INH SCH (08:56)
[2016-10-02] MEDS: SODIUM CHLORIDE 0.9% FLUSH 5 ML FLUSH FLUSH SCH (08:59)
[2016-10-02] MEDS: DOCUSATE SODIUM 100 MG CAP PO SCH (09:00)
[2016-10-02 12:00] VITALS: BP 104/54; PULSE 66; RESP 17; TEMP 96; O2SAT 99
--- NOTE | 2016-10-02 13:14 | HHI.PR ---
Subjective Remarks no major overnight events denies cough denies cp/sob denies fevers/chills on room air - sating well Objective Vitals Vital Signs Date Time Temp Pulse Resp B/P Pulse Ox O2 Delivery O2 Flow Rate FiO2 10/02/16 08:00 95.2 60 16 121/58 100 10/02/16 07:46 96 Nasal Cannula 1.00 10/02/16 04:17 97.1 55 17 120/57 98 10/02/16 00:00 97.6 60 18 126/59 99 10/01/16 22:00 98 Nasal Cannula 1.00 10/01/16 20:00 97.1 73 18 121/60 97 10/01/16 19:38 97 Nasal Cannula 1.00 10/01/16 18:31 17 10/01/16 16:00 95.8 68 18 125/84 98 I/O 10/01/16 10/01/16 10/01/16 10/02/16 10/02/16 10/02/16 07:00 15:00 23:00 07:00 15:00 23:00 Intake Total 960 ml 480 ml Output Total 0 ml Balance 960 ml 480 ml 0 ml Intake Oral 960 ml 480 ml Output Urine Total 0 ml # Voids 1 5 2 # Bowel Movements 1 1 Imaging Last Impressions Chest X-Ray 09/28/16 0600 Signed Impressions: Service Date/Time: Wednesday, September 28, 2016 06:49 - CONCLUSION: No acute disease. Stone Becker MD CT Angiography 09/26/16 0000 Signed Impressions: Service Date/Time: Monday, September 26, 2016 18:52 - CONCLUSION: 1. No evidence for pulmonary embolism. 2. Dilated pulmonary trunk likely pulmonary arterial hypertension. 3. Emphysema with minimal patchy densities could be infectious or inflammatory. 4. Dilated esophagus filled with fluid. Derick Yee MD Objective Remarks GENERAL: This is a well-nourished, well-developed patient, in no apparent distress. SKIN: No rashes, ecchymoses or lesions. Cool and dry. HEAD: Atraumatic. Normocephalic. EYES: Pupils equal round and reactive. ENT: Nose without bleeding, purulent drainage or septal hematoma. Airway patent. NECK: Trachea midline. No JVD CARDIOVASCULAR: Regular rate and rhythm. Systolic murmur appreciated. RESPIRATORY: Clear to auscultation. Decreased breath sounds. GASTROINTESTINAL: Abdomen soft, non-tender, nondistended. MUSCULOSKELETAL: Extremities without clubbing, cyanosis, or edema. No joint tenderness, effusion, or edema noted. NEUROLOGICAL: Awake and alert. Motor and sensory grossly within normal limits. Normal speech. PSYCH: Mood and affect appreciated. Procedures None. Urinary Catheter: No Vascular Central Line Catheter: No A/P Problem List: (1) COPD exacerbation ICD Code: J44.1 Status: Acute (2) Hypothyroidism ICD Code: E03.9 Status: Chronic (3) Depression ICD Code: F32.9 Status: Chronic Assessment and Plan COPD exacerbation Chest x-ray shows new bibasilar airspace opacities consistent with atelectasis versus consolidation. CT of the chest showed: No evidence for pulmonary embolism; Dilated pulmonary trunk likely pulmonary arterial hypertension; Emphysema with minimal patchy densities could be infectious or inflammatory; Dilated esophagus filled with fluid. Appreciate pulmonology consultation. Status post home oxygen walk test. - DuoNeb's scheduled and as needed. - Solu-Medrol weaned to BID 09/28. Switch to prednisone 10/01. - Oxygen as needed. - Incentive spirometry. - PT. Encourage ambulation. - continue IV ceftriaxone and PO azithromycin. - Brio Ellipta per pulmonary. - repeat walk test ordered - no need for o2 upon discharge HTN Stable BP, continue to monitor vital signs. - Vasotec as needed. Hyperglycemia Blood sugar has been running high. S/t steroids. A1c not elevated. - wean off of steroids. - BS stable. Headache Headache resolved. - pain control as needed. DVT prophylaxis: Xarelto GI prophylaxis: Protonix Discharge Planning Nv today Jesu Gee MD Oct 02, 2016 13:13
[2016-10-02] MEDS ORDERED: CEFT500T3 PO (13:28)
--- NOTE | 2016-10-23 08:58 | RSPPFT ---
DATE OF PROCEDURE: 09/28/16 COMMENTS: Spirometry demonstrates an FEV1 of 1.0 at 52% of predicted, FVC of 1.6 at 59%, FEV1/FVC ratio is 64%. The FEF 25-75 is 37% of predicted. Post-bronchodilator study demonstrated no significant change. Flow volume loops suggest an obstructive pattern. IMPRESSION: 1. Moderate to severe obstructive disease. 2. No significant change following use of bronchodilator.
== END 2016-10-02 14:00 | disposition home health service (06) | DRG 191 ==
LOC: NEPE 16:24 → NEDA 21:41 → N05A 09-27 04:39 → OBSVTOIN 09-28 08:34
PROVIDERS: ADMIT Hospitalist; ATTEND Hospitalist
DX: J44.1 Chronic obstructive pulmonary disease with (acute) exacerbation (principal); J98.11 Atelectasis; I10 Essential (primary) hypertension; F32.9 Major depressive disorder, single episode, unspecified; E03.9 Hypothyroidism, unspecified; F41.9 Anxiety disorder, unspecified; R01.1 Cardiac murmur, unspecified; R73.9 Hyperglycemia, unspecified; Z96.651 Presence of right artificial knee joint; Z87.891 Personal history of nicotine dependence; K21.9 Gastro-esophageal reflux disease without esophagitis; Z79.02 Long term (current) use of antithrombotics/antiplatelets; Z79.52 Long term (current) use of systemic steroids; R51 Headache
CPT/HCPCS: 71010; 71275; 80048; 83036; 83735; 84484; 85025; 85610; 85730; 93005; 94060; 94150; 94620; 94640; 94664; 96361; 96374; G0378; J0456; J0696; J2920; J2930; J7040; J7050; J7512; Q9967

== ENCOUNTER 2017-07-18 10:29 | Inpatient (IN) | payer MEDICARE ==
[~2017-07-18] VITALS: Ht 165.1 cm; Wt 55.7 kg
[~2017-07-18 10:29] MED LIST changes: +CEFT500T3 PO; +CELE100C PO; +CIME300T PO; +FLUT1INH INH; +GUAI100S5 PO; -HYDR-3516 PO; +MELA1CAP; +OXYGENTANK NAS.CANULA; +PRED10PA2 PO; +TIZA2CAP3 PO
[2017-07-18 10:32] VITALS: BP_SYST 132; BP_DIAS 34; BP_DIAS 64; PULSE 71; RESP 16; TEMP 99; O2SAT 98
[2017-07-18] MEDS ORDERED: SODIUM CHLOR 0.9% 1000 ML INJ 1,000 ML IV SCH (11:19)
--- NOTE | 2017-07-18 11:35 | PD ---
HPI Chief Complaint: GI Complaint Time Seen by Provider: 11:30 Travel History International Travel<30 days: No Contact w/Intl Traveler<30days: No Traveled to known affect area: No History of Present Illness HPI 77-year-old female presents to the ED for evaluation of 5 day history of diarrhea. Patient denies associated fevers, chills, nausea, vomiting abdominal pain, melena, hematochezia, dysuria. She states that she's been having loose stools every 20 minutes for the last 5 days. She denies any antibiotic use over the last few months. She spoke with Dr. Lee, GI, who prescribed Flagyl. She has taken 2 days of the antibiotic. She is unsure with her last colonoscopy. She endorses drinking1 glass of wine weekly. She is followed by Dr. Beckman, primary care. [facility] Past Medical History Arthritis: Yes Asthma: Yes Autoimmune Disease: Yes Blood Disorders: No Anxiety: No Depression: Yes Heart Rhythm Problems: No Cancer: No Cardiac Catheterization: Yes Cardiovascular Problems: Yes (pulmonary HTN) High Cholesterol: Yes Chemotherapy: No Chest Pain: Yes (occasional) Congestive Heart Failure: No COPD: Yes Cerebrovascular Accident: No Diabetes: No Diminished Hearing: No Diverticulitis: Yes Endocrine: Yes Fibromyalgia: Yes Gastrointestinal Disorders: Yes (GERD, PORRAS'S ESOPH.) GERD: Yes Glaucoma: No Genitourinary: No Hepatitis: No Hiatal Hernia: No Hypertension: Yes Immune Disorder: Yes (SCLERODERMA, RAYNAUD'S) Kidney Stones: No Medical other: Yes ( scerlodoma) Musculoskeletal: Yes (FIBROMYLIGIA) Neurologic: No Psychiatric: No Reproductive: No Respiratory: Yes (COPD) Immunizations Current: Yes Migraines: Yes (history) Myocardial Infarction: Yes Radiation Therapy: No Renal Failure: No Seizures: No Sickle Cell Disease: No Sleep Apnea: No Thyroid Disease: Yes (HYPO) Ulcer: No PNEUMOCCOCAL Vaccine (Year): 2011 ?: Not Menopausal: Yes : 7 Para: 3 Miscarriage: 4 Tubal Ligation: Yes Past Surgical History Abdominal Surgery: Yes ( UMBILICAL HERNIA REPAIR) AICD: No Arteriovenous Shunt: No Body Medical Devices: FUNDOPLATATION; STRATA OF ESOPHAGUS Cardiac Surgery: Yes (cardiac cath) Cholecystectomy: Yes Coronary Artery Bypass Graft: No Ear Surgery: No Endocrine Surgery: Yes (PTL. THYROIDECTOMY) Eye Surgery: No Genitourinary Surgery: Yes (BLADDER/ RECTAL SUSP.) Gynecologic Surgery: Yes (total hysterectomy) Hysterectomy: Yes Insulin Pump: No Joint Replacement: Yes (RIGHT KNEE 1998) Oral Surgery: No Pacemaker: No Thoracic Surgery: Yes (FUNDOPLICATION x2) Other Surgery: Yes (THYROID 75 % REMOVED 1969.) Family History Family Myocardial Infarction: Yes (SISTER) Social History Alcohol Use: Yes (1-2 GLASSES OF WINE PER week) Tobacco Use: No (QUIT 40+ YRS AGO SMOKED 1 PPD FOR APPROX 20+ YRS) Substance Use: No Allergies-Medications (Allergen,Severity, Reaction): Coded Allergies: Sulfa (Sulfonamide Antibiotics) (Unverified Allergy, Severe, Hives, ) doxycycline (Unverified Allergy, Severe, ITCHING, 07/18/17) fentanyl (Unverified Allergy, Severe, ITCHING ALL OVER BODY., 07/18/17) minocycline (Unverified Allergy, Severe, ITCHING, 07/18/17) tigecycline (Unverified Allergy, Severe, ITCHING, 07/18/17) ciprofloxacin (Unverified Adverse Reaction, Severe, SICK TO STOMACH, ) Reported Meds & Prescriptions Reported Meds & Active Scripts Active Ceftin (Cefuroxime Axetil) 500 Mg Tab 500 Mg PO BID Oxygen tank (Oxygen) 1 Ea Tank 2 Liter CHRISTEN.CANULA CONTINUOUS Oxygen Concentrator Portable Gaseous 2 L/min via Nasal Cannula Continuous For 99 months Prednisone (48) 10 mg tab Dose Pack (Prednisone) 10 Mg Dspk 10 Mg PO DIRECTED Guaifenesin-Codeine Liq 100-10 Mg/5 Ml Soln 5 Ml PO Q6H PRN Breo Ellipta Inh (Fluticasone/Vilanterol) 100-25 Mcg/Act Inh 1 Puff INH DAILY Oxycodone-Acetaminophen 5-325 mg Tab 1 Tab PO Q6HR Hydrocortisone Topical 2.5% Cream 0 Applic TOP TID PRN 30 Days Acetaminophen 325 Mg Tab 650 Mg PO Q6HR PRN Polyethylene Glycol 3350 Powder (Polyethylene Glycol) 17 Gm Pow 17 Gm PO DAILY PRN Bisac-Evac Supp (Bisacodyl) 10 Mg Supp 1 Mg RECTAL DAILY PRN Aquaphor (Emollient) 1 Oin Oin 1 Applic TOP Q12HR 30 Days Acidophilus/l-Sporogenes (Lactobacillus Acidophilus) 1 Tab Tab 1 Tab PO Q12HR Mirtazapine 15 Mg Tab 15 Mg PO HS Xarelto (Rivaroxaban) 10 Mg Tab 10 Mg PO DAILY Hydroxyzine HCl 25 Mg Tab 25 Mg PO Q8H PRN Bacitracin Topical 500 Unit/Gm Oint 0 Applic TOP BID 14 Days Mucinex ER 12 HR (Guaifenesin) 600 Mg Tiffanie 600 Mg PO BID Vitamin D-400 (Cholecalciferol) 400 Unit Tab 400 Units PO DAILY Levothyroxine (Levothyroxine Sodium) 88 Mcg Tab 88 Mcg PO DAILY Urecholine (Bethanechol Chloride) 25 Mg Tab 12.5 Mg PO QID Omeprazole 40 Mg Cap 40 Mg PO DAILY Reported Cimetidine 300 Mg Tab 300 Mg PO BID Melatonin 1 Mg Cap Celebrex (Celecoxib) 100 Mg Cap 100 Mg PO BID Tizanidine (Tizanidine HCl) 2 Mg Cap 2 Mg PO BID Review of Systems Except as stated in HPI: all other systems reviewed are Neg Physical Exam Narrative GENERAL: Thin white female in no acute distress. SKIN: Focused skin assessment warm/dry. HEAD: Normocephalic. EYES: No scleral icterus. No injection or drainage. NECK: Supple, trachea midline. No JVD or lymphadenopathy. CARDIOVASCULAR: Regular rate and rhythm without murmurs, gallops, or rubs. RESPIRATORY: Breath sounds clear and equal bilaterally. No accessory muscle use. GASTROINTESTINAL: Abdomen soft, nondistended. Mild tenderness to deep palpation of the left upper quadrant. Active bowel sounds. MUSCULOSKELETAL: No cyanosis, or edema. BACK: Nontender without obvious deformity. No CVA tenderness. Data Data Last Documented VS Vital Signs Date Time Temp Pulse Resp B/P (MAP) Pulse Ox O2 Delivery O2 Flow Rate FiO2 07/18/17 12:48 66 20 141/65 (90) 99 Room Air 07/18/17 10:32 99.0 Orders Orders Complete Blood Count With Diff (07/18/17 11:19) Comprehensive Metabolic Panel (07/18/17 11:19) Lipase (07/18/17 11:19) Lactic Acid (07/18/17 11:19) Urinalysis - C+S If Indicated (07/18/17 11:19) Iv Access Insert/Monitor (07/18/17 11:19) Ecg Monitoring (07/18/17 11:19) Oximetry (07/18/17 11:19) Sodium Chlor 0.9% 1000 Ml Inj (Ns 1000 M (07/18/17 11:19) Sodium Chloride 0.9% Flush (Ns Flush) (07/18/17 11:30) Stool Ova And Parasite Screen (07/18/17 11:19) Enteric Path (Stool) (07/18/17 11:19) C Diff Toxin Pcr (07/18/17 11:35) Potassium Chloride (Kcl) (07/18/17 12:30) Morphine Inj (Morphine Inj) (07/18/17 12:30) Ondansetron Inj (Zofran Inj) (07/18/17 12:30) Hydroxyzine Pamoate (Vistaril) (07/18/17 14:00) Labs Laboratory Tests Test 07/18/17 11:30 07/18/17 12:00 07/18/17 12:07 White Blood Count 7.9 TH/MM3 Red Blood Count 5.40 MIL/MM3 Hemoglobin 14.0 GM/DL Hematocrit 44.5 % Mean Corpuscular Volume 82.4 FL Mean Corpuscular Hemoglobin 26.0 PG Mean Corpuscular Hemoglobin Concent 31.5 % Red Cell Distribution Width 16.5 % Platelet Count 333 TH/MM3 Mean Platelet Volume 7.6 FL Neutrophils (%) (Auto) 59.2 % Lymphocytes (%) (Auto) 17.1 % Monocytes (%) (Auto) 14.7 % Eosinophils (%) (Auto) 8.2 % Basophils (%) (Auto) 0.8 % Neutrophils # (Auto) 4.7 TH/MM3 Lymphocytes # (Auto) 1.4 TH/MM3 Monocytes # (Auto) 1.2 TH/MM3 Eosinophils # (Auto) 0.6 TH/MM3 Basophils # (Auto) 0.1 TH/MM3 CBC Comment DIFF FINAL Differential Comment Blood Urea Nitrogen 15 MG/DL Creatinine 1.51 MG/DL Random Glucose 107 MG/DL Total Protein 8.6 GM/DL Albumin 4.3 GM/DL Calcium Level 9.2 MG/DL Alkaline Phosphatase 132 U/L Aspartate Amino Transf (AST/SGOT) 21 U/L Alanine Aminotransferase (ALT/SGPT) 15 U/L Total Bilirubin 0.3 MG/DL Sodium Level 137 MEQ/L Potassium Level 2.9 MEQ/L Chloride Level 107 MEQ/L Carbon Dioxide Level 16.9 MEQ/L Anion Gap 13 MEQ/L Estimat Glomerular Filtration Rate 33 ML/MIN Lipase 1205 U/L Lactic Acid Level 1.4 mmol/L MDM Medical Decision Making Medical Screen Exam Complete: Yes Emergency Medical Condition: Yes Differential Diagnosis Colitis versus UTI versus C. difficile versus pancreatitis versus dehydration versus metabolic drainage but versus other Narrative Course 77-year-old female presents to the ED for evaluation of 5 day history of diarrhea. Patient denies associated fevers, chills, nausea, vomiting abdominal pain, melena, hematochezia, dysuria. She states that she's been having loose stools every 20 minutes for the last 5 days. She denies any antibiotic use over the last few months. She is taken 2 days of Flagyl that was prescribed by Dr. Lee. She is unsure with her last colonoscopy. PCP Dr. Beckman. Patient is afebrile on presentation. Physical exam reveals a nontoxic-appearing white female in no acute distress. There is mild tenderness to deep palpation in the left upper quadrant of the exam is otherwise unremarkable. IV was established. Patient was administered 2 mg morphine, 4 mg Zofran and 1 L normal saline IV. Stool studies pending. CBC: WBC 7.9. Hemoglobin 14 CMP: BUN 15. Creatinine 1.51. GFR 33. Alkaline phosphatase 132. Lipase 1205 Lactic acid 1.4 UA: pending Patient was administered 40 mg potassium by mouth. I discussed the results of the workup with the patient. She is amenable to admission for treatment of hypokalemia, pancreatitis, ARMANDO. I spoke with Dr. Rucker who agrees to accept the patient to the medicine service. Please see medicine notes for disposition. [facility] Point of Care Internal Pos. & Neg. Controls: Passed Fecal Specimen Occult Blood: Negative Lluvia Powell Jul 18, 2017 11:35
[2017-07-18 11:53] LABS: AUTOMATED NEUTROPHIL # 4.7 TH/MM3 (1.8-7.7); BASOPHIL # 0.1 TH/MM3 (0-0.2); BASOPHIL % 0.8 % (0.0-2.0); EOSINOPHIL # 0.6 TH/MM3 (0-0.4); EOSINOPHIL % 8.2 % (0.0-4.0); HEMATOCRIT 44.5 % (35.0-46.0); HEMO FLAGS DIFF FINAL; LYMPH % 17.1 % (9.0-44.0); LYMPHOCYTE # 1.4 TH/MM3 (1.0-4.8); MEAN CELL VOLUME 82.4 FL (80.0-100.0); MEAN CORPUSCULAR HGB CONC 31.5 % (32.0-36.0); MONO % 14.7 % (0.0-8.0); NEUT % 59.2 % (16.0-70.0); PLATELET COUNT 333 TH/MM3 (150-450); RED CELL DISTRIBUTION WIDTH 16.5 % (11.6-17.2); WHITE BLOOD COUNT 7.9 TH/MM3 (4.0-11.0)
[2017-07-18 12:17] LABS: ALKALINE PHOSPHATASE 132 U/L (45-117); ALT (GPT) 15 U/L (10-53); ANION GAP 13 MEQ/L (5-15); AST (GOT) 21 U/L (15-37); BICARBONATE 16.9 MEQ/L (21.0-32.0); BLOOD UREA NITROGEN 15 MG/DL (7-18); CHLORIDE 107 MEQ/L (98-107); GLOMERULAR FILTRATION RATE 33 ML/MIN (>89); SODIUM (NA) 137 MEQ/L (136-145); TOTAL BILIRUBIN ADULT 0.3 MG/DL (0.2-1.0)
[2017-07-18 12:24] LABS: POTASSIUM 2.9 MEQ/L (3.5-5.1)
[2017-07-18] MEDS ORDERED: POTASSIUM CHLORIDE 20 MEQ CONTROLLED RELEASE TAB PO ONE ×2 (12:30→15:15)
[2017-07-18] MEDS ORDERED: MORPHINE SULFATE 2 MG/ML INJ IV PUSH ONE (12:30)
[2017-07-18] MEDS ORDERED: ONDANSETRON HCL 4 MG/2 ML VIAL IV PUSH ONE (12:30)
[2017-07-18 12:48] VITALS: BP 141/65; PULSE 66; RESP 20; O2SAT 99
[2017-07-18] MEDS ORDERED: hydrOXYzine PAMOATE 25 MG CAP PO ONE (14:00)
[2017-07-18 14:29] LABS: C. DIFF EPI 027 PRESUMPTIVE NEGATIVE (NEGATIVE)
--- NOTE | 2017-07-18 15:28 | HHI.HP ---
[facility] Primary Care Physician Maico Beckman MD Admission Diagnosis pancreatitis, hypokalemia, ARMANDO Diagnoses: (1) Pancreatitis Diagnosis: Principal Chief Complaint: diarrhea Travel History International Travel<30 Days: No Contact w/Intl Traveler <30 Da: No Traveled to Known Affected Are: No History of Present Illness patient is a 77 y/o female with history of COPD and hypothyroidism who presented to ER with diarrhea. she says that she's had diarrhea for the past five days. she denies any stool in the blood, fever or chills but had mild epigastric pain. pain had no radiation and was not associated with nausea or vomiting. she says that she was prescribed flagyl by with no significant improvement. there's no history of antibiotic use recently. Review of Systems Constitutional: DENIES: Fever, Weight loss, Chills, Night Sweats Eyes: DENIES: Blurred vision, Diplopia, Vision loss, Double Vision Ears, nose, mouth, throat: DENIES: Tinnitus, Vertigo, Throat pain, Epistaxis Respiratory: DENIES: Apneas, Cough, Snoring, Wheezing, Hemoptysis, Sputum production, Shortness of breath Cardiovascular: DENIES: Chest pain, Palpitations, Syncope, Dyspnea on Exertion , PND, Lower Extremity Edema, Orthopnea, Claudication Gastrointestinal: COMPLAINS OF: Abdominal pain, Diarrhea, DENIES: Black stools , Bloody stools, Constipation, Nausea, Vomiting, Difficulty Swallowing, Anorexia Genitourinary: DENIES: Urinary frequency, Urgency, Hematuria, Dysuria Musculoskeletal: DENIES: Joint pain, Muscle aches, Stiffness, Joint Swelling Integumentary: DENIES: Rash Neurologic: DENIES: Abnormal gait, Headache, Localized weakness, Paresthesias, Seizures, Speech Problems, Tremor, Poor Balance Psychiatric: DENIES: Anxiety, Confusion, Mood changes, Depression, Hallucinations, Agitation, Suicidal Ideation, Homicidal Ideation, Delusions Past Family Social History Past Medical History hypothyroidism COPD Past Surgical History thyroidectomy cholecystectomy Reported Medications Ceftin (Cefuroxime Axetil) 500 Mg Tab 500 Mg PO BID Oxygen tank (Oxygen) 1 Ea Tank 2 Liter CHRISTEN.CANULA CONTINUOUS Oxygen Concentrator Portable Gaseous 2 L/min via Nasal Cannula Continuous For 99 months Prednisone (48) 10 mg tab Dose Pack (Prednisone) 10 Mg Dspk 10 Mg PO DIRECTED Guaifenesin-Codeine Liq 100-10 Mg/5 Ml Soln 5 Ml PO Q6H PRN Breo Ellipta Inh (Fluticasone/Vilanterol) 100-25 Mcg/Act Inh 1 Puff INH DAILY Oxycodone-Acetaminophen 5-325 mg Tab 1 Tab PO Q6HR Hydrocortisone Topical 2.5% Cream 0 Applic TOP TID PRN 30 Days Acetaminophen 325 Mg Tab 650 Mg PO Q6HR PRN Polyethylene Glycol 3350 Powder (Polyethylene Glycol) 17 Gm Pow 17 Gm PO DAILY PRN Bisac-Evac Supp (Bisacodyl) 10 Mg Supp 1 Mg RECTAL DAILY PRN Aquaphor (Emollient) 1 Oin Oin 1 Applic TOP Q12HR 30 Days Acidophilus/l-Sporogenes (Lactobacillus Acidophilus) 1 Tab Tab 1 Tab PO Q12HR Mirtazapine 15 Mg Tab 15 Mg PO HS Xarelto (Rivaroxaban) 10 Mg Tab 10 Mg PO DAILY Hydroxyzine HCl 25 Mg Tab 25 Mg PO Q8H PRN Bacitracin Topical 500 Unit/Gm Oint 0 Applic TOP BID 14 Days Mucinex ER 12 HR (Guaifenesin) 600 Mg Tiffanie 600 Mg PO BID Vitamin D-400 (Cholecalciferol) 400 Unit Tab 400 Units PO DAILY Levothyroxine (Levothyroxine Sodium) 88 Mcg Tab 88 Mcg PO DAILY Urecholine (Bethanechol Chloride) 25 Mg Tab 12.5 Mg PO QID Omeprazole 40 Mg Cap 40 Mg PO DAILY Allergies: Coded Allergies: Sulfa (Sulfonamide Antibiotics) (Unverified Allergy, Severe, Hives, ) doxycycline (Unverified Allergy, Severe, ITCHING, 07/18/17) fentanyl (Unverified Allergy, Severe, ITCHING ALL OVER BODY., 07/18/17) minocycline (Unverified Allergy, Severe, ITCHING, 07/18/17) tigecycline (Unverified Allergy, Severe, ITCHING, 07/18/17) ciprofloxacin (Unverified Adverse Reaction, Severe, SICK TO STOMACH, ) Active Ordered Medications Current Medications Sodium Chloride 1,000 ml @ 1,000 mls/hr Q1H IV Last administered on 07/18/17 12:11; Start 07/18/17 at 11:19; Stop 07/18/17 at 12:18; Status DC Sodium Chloride (NS Flush) 2 ml UNSCH PRN IV FLUSH FLUSH AFTER USING IV ACCESS ; Start 07/18/17 at 11:30 Potassium Chloride (KCl) 40 meq ONCE ONCE PO Last administered on 07/18/17 12 :48; Start 07/18/17 at 12:30; Stop 07/18/17 at 12:31; Status DC Morphine Sulfate (Morphine Inj) 2 mg ONCE ONCE IV PUSH Last administered on 12:47; Start 07/18/17 at 12:30; Stop 07/18/17 at 12:31; Status DC Ondansetron HCl (Zofran Inj) 4 mg ONCE ONCE IV PUSH Last administered on 12:47; Start 07/18/17 at 12:30; Stop 07/18/17 at 12:31; Status DC Hydroxyzine Pamoate (Vistaril) 25 mg ONCE ONCE PO Last administered on 14:02; Start 07/18/17 at 14:00; Stop 07/18/17 at 14:01; Status DC Sodium Chloride 1,000 ml @ 84 mls/hr [id number] IV ; Start 07/18/17 at 15:15; Status UNV Potassium Chloride (KCl) 40 meq ONCE ONCE PO ; Start 07/18/17 at 15:15; Stop 07/18/17 at 15:16; Status UNV Diphenhydramine HCl (Benadryl) 25 mg Q6H PRN PO ITCHING; Start 07/18/17 at 15: 15; Status UNV Acetaminophen/ Hydrocodone Bitart (Hooven 5-325 Mg) 1 tab Q6H PRN PO PAIN 6-10 ; Start 07/18/17 at 15:15; Status UNV Ondansetron HCl (Zofran Inj) 4 mg Q8HR PRN IV PUSH NAUSEA; Start 07/18/17 at 15 :15; Status UNV Bethanechol Chloride (Urecholine) 12.5 mg QID PO ; Start 07/18/17 at 18:00; Status UNV Fluticasone/ Vilanterol (Breo Ellipta 100-25 Inh) 1 puff DAILY INH ; Start 06/25 at 09:00; Status UNV Lactobacillus Acidophilus (Lactinex) 1 tab Q12HR PO ; Start 07/18/17 at 21:00; Status UNV Levothyroxine Sodium (Synthroid) 88 mcg DAILY PO ; Start 07/19/17 at 09:00; Status UNV Mirtazapine (Remeron) 15 mg HS PO ; Start 07/18/17 at 21:00; Status UNV Rivaroxaban (Xarelto) 10 mg DAILY PO ; Start 07/19/17 at 09:00; Status UNV Family History breast cancer in sister. Social History doesn't smoke. drinks rarely. Physical Exam Vital Signs Vital Signs Date Time Temp Pulse Resp B/P (MAP) Pulse Ox O2 Delivery O2 Flow Rate FiO2 07/18/17 12:48 66 20 141/65 (90) 99 Room Air 07/18/17 10:32 99.0 71 16 132/64 (86) 98 Physical Exam GENERAL: This is a well-nourished, well-developed patient, in no apparent distress. SKIN: No rashes, ecchymoses or lesions. Cool and dry. HEAD: Atraumatic. Normocephalic. No temporal or scalp tenderness. EYES: Pupils equal round and reactive. Extraocular motions intact. No scleral icterus. No injection or drainage. ENT: Nose without bleeding, purulent drainage or septal hematoma. Throat without erythema, tonsillar hypertrophy or exudate. Uvula midline. Airway patent. NECK: Trachea midline. No JVD or lymphadenopathy. Supple, nontender, no meningeal signs. CARDIOVASCULAR: Regular rate and rhythm without murmurs, gallops, or rubs. RESPIRATORY: Clear to auscultation. Breath sounds equal bilaterally. No wheezes , rales, or rhonchi. GASTROINTESTINAL: Abdomen soft, mild epigastric tenderness, nondistended. No hepato-splenomegaly, or palpable masses. No guarding. MUSCULOSKELETAL: Extremities without clubbing, cyanosis, or edema. No joint tenderness, effusion, or edema noted. No calf tenderness. Negative Homans sign bilaterally. NEUROLOGICAL: Awake and alert. Cranial nerves II through XII intact. Motor and sensory grossly within normal limits. Five out of 5 muscle strength in all muscle groups. Normal speech. Laboratory Laboratory Tests Test 07/18/17 11:30 07/18/17 12:00 07/18/17 12:07 White Blood Count 7.9 Red Blood Count 5.40 Hemoglobin 14.0 Hematocrit 44.5 Mean Corpuscular Volume 82.4 Mean Corpuscular Hemoglobin 26.0 Mean Corpuscular Hemoglobin Concent 31.5 Red Cell Distribution Width 16.5 Platelet Count 333 Mean Platelet Volume 7.6 Neutrophils (%) (Auto) 59.2 Lymphocytes (%) (Auto) 17.1 Monocytes (%) (Auto) 14.7 Eosinophils (%) (Auto) 8.2 Basophils (%) (Auto) 0.8 Neutrophils # (Auto) 4.7 Lymphocytes # (Auto) 1.4 Monocytes # (Auto) 1.2 Eosinophils # (Auto) 0.6 Basophils # (Auto) 0.1 CBC Comment DIFF FINAL Differential Comment Blood Urea Nitrogen 15 Creatinine 1.51 Random Glucose 107 Total Protein 8.6 Albumin 4.3 Calcium Level 9.2 Alkaline Phosphatase 132 Aspartate Amino Transf (AST/SGOT) 21 Alanine Aminotransferase (ALT/SGPT) 15 Total Bilirubin 0.3 Sodium Level 137 Potassium Level 2.9 Chloride Level 107 Carbon Dioxide Level 16.9 Anion Gap 13 Estimat Glomerular Filtration Rate 33 Lipase 1205 Stool C. difficile Toxin (PCR) NEGATIVE Stl C. difficile Toxin Epiderm 027 PRESUMPTIVE NEGATIVE Lactic Acid Level 1.4 Date/Time Source Procedure Growth Status 07/18/17 12:00 Stool Stool Cryptosporidium Exam Pending Received 07/18/17 12:00 Stool Stool Giardia Antigen (ZEE) Pending Received Result Diagram: 07/18/17 1130 07/18/17 1130 Caprini VTE Risk Assessment Caprini VTE Risk Assessment: Mod/High Risk (score >= 2) Caprini Risk Assessment Model Point Value = 1 Point Value = 2 Point Value = 3 Point Value = 5 Age 41-60 Minor surgery BMI > 25 kg/m2 Swollen legs Varicose veins or History of unexplained or recurrent spontaneous Oral contraceptives or hormone replacement Sepsis (< 1 month) Serious lung disease, including pneumonia (< 1 month) Abnormal pulmonary function Acute myocardial infarction Congestive heart failure (< 1 month) History of inflammatory bowel disease Medical patient at bed rest Age 61-74 Arthroscopic surgery Major open surgery (> 45 min) Laparoscopic surgery (> 45 min) Malignancy Confined to bed (> 72 hours) Immobilizing plaster cast Central venous access Age >= 75 History of VTE Family history of VTE Factor V Leiden Prothrombin [id number] Lupus anticoagulant Anticardiolipin antibodies Elevated serum homocysteine Heparin-induced thrombocytopenia Other congenital or acquired thrombophilia Stroke (< 1 month) Elective arthroplasty Hip, pelvis, or leg fracture Acute spinal cord injury (< 1 month) Prophylaxis Regimen Total Risk Factor Score Risk Level Prophylaxis Regimen 0-1 Low Early ambulation 2 Moderate Order ONE of the following: *Sequential Compression Device (SCD) *Heparin 5000 units SQ BID 3-4 Higher Order ONE of the following medications: *Heparin 5000 units SQ TID *Enoxaparin/Lovenox 40 mg SQ daily (WT < 150 kg, CrCl > 30 mL/min) *Enoxaparin/Lovenox 30 mg SQ daily (WT < 150 kg, CrCl > 10-29 mL/min) *Enoxaparin/Lovenox 30 mg SQ BID (WT < 150 kg, CrCl > 30 mL/min) AND/OR *Sequential Compression Device (SCD) 5 or more Highest Order ONE of the following medications: *Heparin 5000 units SQ TID (Preferred with Epidurals) *Enoxaparin/Lovenox 40 mg SQ daily (WT < 150 kg, CrCl > 30 mL/min) *Enoxaparin/Lovenox 30 mg SQ daily (WT < 150 kg, CrCl > 10-29 mL/min) *Enoxaparin/Lovenox 30 mg SQ BID (WT < 150 kg, CrCl > 30 mL/min) AND *Sequential Compression Device (SCD) Assessment and Plan Assessment and Plan A/P - acute pancreatitis start on clear liquid diet- continue with supportive care; IV fluid, pain control and antiemetics as needed. -diarrhea- check the stool w/u- -hypokalemia; will replace and monitor -acute kidney injury; start on IV fluid and monitor the renal function -COPD with no exacerbation; continue Breo- albuterol as needed -hypothyroidism; resume home meds Discussed Condition With ER and the patient. Physician Certification 2 Midnight Certification Type: Admission for Inpatient Services Order for Inpatient Services The services are ordered in accordance with Medicare regulations or non- Medicare payer requirements, as applicable. In the case of services not specified as inpatient-only, they are appropriately provided as inpatient services in accordance with the 2-midnight benchmark. Estimated LOS (days): 2 days is the estimated time the patient will need to remain in the hospital, assuming treatment plan goals are met and no additional complications. Post-Hospital Plan: Home Problem Qualifiers (1) Pancreatitis: Qualified Codes: K85.90 - Acute pancreatitis without necrosis or infection, unspecified Leslie Rucker MD Jul 18, 2017 15:28
[2017-07-18] MEDS ORDERED: PILL SPLITTER OTHER PRN (15:45)
[2017-07-18] MEDS: SODIUM CHLOR 0.9% 1000 ML INJ 1,000 ML IV SCH (16:00)
[2017-07-18 16:15] VITALS: BP 147/71; PULSE 71; RESP 17; TEMP 96.7; O2SAT 97
[2017-07-18] MEDS: diphenhydrAMINE HCL 25 MG CAP PO PRN ×2 (16:24→22:24)
[2017-07-18] MEDS: BETHANECHOL CHL 25 MG TAB PO SCH ×2 (16:25→20:01)
[2017-07-18] MEDS ORDERED: TEMAZEPAM 7.5 MG CAP PO ONE (20:00)
[2017-07-18] MEDS: LACTOBACILLUS ACIDOPHILUS TAB PO SCH (20:01)
[2017-07-18] MEDS: MIRTAZAPINE 15 MG TAB PO SCH (20:01)
[2017-07-18] MEDS: ACETAMINOPHEN/HYDROcodone 325 MG/5 MG TAB PO PRN (20:01)
[2017-07-18 20:26] VITALS: BP 117/58; PULSE 63; RESP 16; TEMP 96.3; O2SAT 98
[2017-07-18] MEDS: LOPERAMIDE HCL 2 MG CAP PO PRN (22:24)
[2017-07-19 00:31] VITALS: BP 110/58; PULSE 66; RESP 16; TEMP 96.7; O2SAT 95
[2017-07-19] MEDS: ACETAMINOPHEN/HYDROcodone 325 MG/5 MG TAB PO PRN ×3 (02:08→21:21)
[2017-07-19] MEDS: SODIUM CHLOR 0.9% 1000 ML INJ 1,000 ML IV SCH (03:28)
[2017-07-19] MEDS: LOPERAMIDE HCL 2 MG CAP PO PRN ×3 (05:04→21:20)
[2017-07-19] MEDS: LEVOTHYROXINE SODIUM 88 MCG TAB PO SCH (05:04)
[2017-07-19] MEDS: diphenhydrAMINE HCL 25 MG CAP PO PRN ×2 (05:05→11:24)
[2017-07-19] MEDS ORDERED: RESP: ALBUTEROL 0.63 MG/3 ML NEB (PRN) NEB (07:15)
[2017-07-19 08:00] VITALS: BP 126/68; PULSE 66; RESP 18; TEMP 96.5; O2SAT 95
[2017-07-19] MEDS: BETHANECHOL CHL 25 MG TAB PO SCH ×4 (08:32→21:21)
[2017-07-19] MEDS: LACTOBACILLUS ACIDOPHILUS TAB PO SCH ×2 (08:34→21:20)
[2017-07-19] MEDS: HEPARIN SODIUM - SQ 10,000 UNITS/ML VIAL SQ SCH ×2 (08:37→21:20)
[2017-07-19] MEDS ORDERED: RIVAROXABAN 10 MG TAB PO SCH (09:00)
[2017-07-19] MEDS: FLUTICASONE 100 MCG/VILANTEROL 25 MCG INHALER INH SCH (09:00)
[2017-07-19] MEDS ORDERED: INFLUENZA VIRUS VACCINE (QUADRIVALENT) 0.5 ML SYR IM ONE (10:00)
[2017-07-19 10:02] LABS: BICARBONATE 15.4 MEQ/L (21.0-32.0)
[2017-07-19 10:07] LABS: POTASSIUM 3.5 MEQ/L (3.5-5.1)
--- NOTE | 2017-07-19 11:53 | HHI.PR ---
Subjective Remarks Follow-up pancreatitis, diarrhea. Patient still having abdominal pain, unchanged. Diarrhea is ongoing as well. No nausea or vomiting. Objective Vitals Vital Signs Date Time Temp Pulse Resp B/P (MAP) Pulse Ox O2 Delivery O2 Flow Rate FiO2 07/19/17 09:32 16 07/19/17 08:00 96.5 66 18 126/68 (87) 95 07/19/17 00:31 96.7 66 16 110/58 (75) 95 07/18/17 20:26 96.3 63 16 117/58 (77) 98 07/18/17 16:48 18 07/18/17 16:15 07/18/17 16:15 96.7 71 17 147/71 (96) 97 07/18/17 12:48 66 20 141/65 (90) 99 Room Air I/O 07/18/17 07/18/17 07/18/17 07/19/17 07/19/17 07/19/17 07:00 15:00 23:00 07:00 15:00 23:00 Intake Total 496 ml 420 ml Output Total 200 ml Balance 496 ml 220 ml Intake Oral 160 ml IV Total 336 ml 420 ml Output Urine Total 200 ml # Voids 0 # Bowel Movements 0 2 Result Diagram: 07/18/17 1130 07/19/17 0828 Objective Remarks General: Thin elderly female in no acute distress. Heart: Regular rate and rhythm. No murmur. Lungs: Clear to auscultation bilaterally. No wheezes, rales, or rhonchi. Breathing is nonlabored. Abdomen: Soft, tender to palpation in the right upper quadrant and left lower quadrant, nondistended. Extremities: No lower extremity edema. Psych: Alert and oriented. Procedures None Urinary Catheter: No Vascular Central Line Catheter: No A/P Problem List: (1) Pancreatitis ICD Code: K85.90 - Acute pancreatitis without necrosis or infection, unspecified (2) Acute kidney injury ICD Code: N17.9 - Acute kidney failure, unspecified (3) Hypokalemia ICD Code: E87.6 - Hypokalemia (4) Diarrhea ICD Code: R19.7 - Diarrhea, unspecified (5) Chronic obstructive pulmonary disease ICD Code: J44.9 - Chronic obstructive pulmonary disease Status: Acute Assessment and Plan 1. Acute pancreatitis: Uncertain etiology. Continue clear liquid diet, IV fluids , pain control. 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 Lipase is trending down. 2. Diarrhea: Uncertain etiology. C. difficile negative. Consult GI. 3. Acute kidney injury: Secondary to dehydration. Continue IV fluids. Monitor labs. 4. Hypokalemia: Supplement potassium. Recheck labs in the morning. 5. COPD: Not in exacerbation. Continue Breo, albuterol. 6. Hypothyroidism: Continue Synthroid. 7. DVT prophylaxis: Subcutaneous heparin. Problem Qualifiers (1) Pancreatitis: Qualified Codes: K85.90 - Acute pancreatitis without necrosis or infection, unspecified Yinka Mcneil MD Jul 19, 2017 11:53
[2017-07-19 12:00] VITALS: BP 118/62; PULSE 63; RESP 17; TEMP 96; O2SAT 96
[2017-07-19] MEDS: hydrOXYzine HCL 25 MG TAB PO PRN ×2 (15:16→21:21)
[2017-07-19 16:00] VITALS: BP 134/66; PULSE 67; RESP 17; TEMP 97.5; O2SAT 96
--- NOTE | 2017-07-19 18:04 | MB ---
cc: JOSE MCNEIL HARRY M.D. AGNONE, [facility] M[facility] DATE OF CONSULTATION: 07/19/2017. REASON FOR CONSULTATION: Pancreatitis and diarrhea. REFERRING PHYSICIAN: Dr. Jose Mcneil. HISTORY OF PRESENT ILLNESS: This is a 77-year-old female followed by Dr. Lee for gastroesophageal reflux disease (GERD) and Chandler's esophagus. The patient states that about five to seven days ago she developed watery diarrhea with no significant abdominal cramping. The diarrhea would be worse if she ate or drank anything. No recent travel history. She denies any recent antibiotic use. No pets at home. She states she has not had diarrhea problems before and does not have a history of colitis. She was recently prescribed Flagyl but the diarrhea did not improve so she came to the emergency room. Her stool for enteric pathogens and C. difficile so far has been negative. She has been getting Imodium but complains that she is still having six watery stools a day. She also had a mildly elevated lipase and a slightly elevated alkaline phosphatase but normal transaminases. She has had a prior cholecystectomy. She does have some mild abdominal pain but no back pain. She denies any nausea or vomiting. She has a history of scleroderma and denies any dysphagia. SOCIAL HISTORY: The patient is single. She lives by herself. She denies any pets at home. PAST MEDICAL HISTORY: Her medical history is remarkable for: 1. Hypothyroidism. 2. COPD. PAST SURGICAL HISTORY: 1. She has had a prior cholecystectomy. 2. Thyroidectomy. CURRENT MEDICATIONS: Her current medications include: 1. Potassium supplement. 2. Atarax PRN. 3. Breo Ellipta one puff daily. 4. Subcutaneous heparin. 5. Albuterol inhaler treatments. 6. She is on Synthroid 88 micrograms daily. 7. She is getting Loperamide 2 milligrams q. 6 hours PRN for the diarrhea. 8. Lactinex. 9. Remeron 50 milligrams at bedtime. 10. Bethanechol 12.5 milligrams four times a day for gastroparesis. 11. Hydrocodone PRN for pain. 12. Zofran PRN for nausea. ALLERGIES: 1. SULFA. 2. CIPROFLOXACIN. 3. DOXYCYCLINE. 4. FENTANYL. 5. MINOCYCLINE. 6. TIGECYCLINE. FAMILY HISTORY: Her family history is negative for inflammatory bowel disease. No colon cancer. Sister has had breast cancer. SOCIAL HISTORY: She drinks maybe one glass of wine per week and denies smoking. REVIEW OF SYSTEMS: Review of systems is remarkable for her scleroderma but she denies dysphagia. She does have a history of gastroesophageal reflux disease and does take a omeprazole 40 mg daily at home. She has a history of gastroparesis. She does not recall when her last colonoscopy was but states it has been a while. She has developed a dry hacking cough and over the last few days but denies any fever or chills. No nausea or vomiting. PHYSICAL EXAMINATION: GENERAL: Physical exam reveals a thin female in no acute distress. VITAL SIGNS: Her blood pressure is 118/62, pulse 63 and regular, respirations 17 nonlabored, temperature is 96 orally. HEAD, EYES, EARS, NOSE, THROAT: Sclerae anicteric. Dentition fair. NECK: The neck is supple without masses. LUNGS: Reveal slightly diminished breath sounds without rales, rhonchi or wheezes. HEART: Heart sounds are regular without appreciable murmur, gallop or rub. ABDOMEN: Abdomen is soft and nondistended. Mild upper abdominal tenderness. No rebound or guarding. No palpable masses. No organomegaly. No detectable ascites. Bowel sounds are present. No bruits. RECTAL: Rectal was deferred. EXTREMITIES: No peripheral edema. She does have some mild sclerodactyly. NEUROLOGIC: She is alert and oriented. LABORATORY FINDINGS: On admission her lipase was 1205 yesterday and it has come down to 749. Transaminases are normal. Alkaline phosphatase is 132. Total bilirubin is 0.3, lactic acid was normal at 1.4. Creatinine yesterday was 1.51 but it has come down to 1.11 with hydration. Hemoglobin was 14, white count 7.9. Urinalysis is pending. Stool studies are negative as discussed above. IMAGING STUDIES: There are no imaging studies available. IMPRESSION: 1. Acute diarrhea, etiology unclear. No obvious infectious etiology. Could possibly be viral. 2. Mild elevation in serum lipase. The level is just barely above three times the upper limit of normal. PLAN: 1. Agree with IV fluids and clear liquid diet. 2. Will order an ultrasound of her liver and pancreas. 3. To help control her diarrhea, will try cholestyramine. 4. Depending upon her response, will likely need a colonoscopy or at least a flexible sigmoidoscopy. 5. She states she is due next month for her routine surveillance endoscopy for her Chandler's history, so could possibly do them both at the same time. Will follow with you. Thank you for this consult. MD DANI Germain/NATHALIE /4:27 PM /5:44 PM
--- NOTE | 2017-07-19 19:36 | RADRPT ---
EXAM DATE/TIME: 07/19/2017 18:31 [facility] COMPARISON: CT PULMONARY ANGIOGRAM, September 26, 2016, 18:52. INDICATIONS : Elevated lab values. MEDICAL HISTORY : Hypercholesterolemia. Chronic obstructive pulmonary disease. Gastroesophageal reflux disease. Hypothy roidism. Hypertension. Myocardial infarction. Chandler's disease. fibromyalgia. arthritis. blood transfusion. scerlodoma. SURGICAL HISTORY : Cholecystectomy. Tubal ligation. Hysterectomy. Cardiac catheteriztion. Fundoplication. Hernia repai r, umbilitical. Bladder suspension surgery. Total knee replacement, right. Thyroidectomy. ENCOUNTER: Initial ACUITY: 1 day PAIN SCORE: 2/10 LOCATION: Bilateral upper quadrant MEASUREMENTS: LIVER: 16.7 cm length COMMON DUCT: 12 mm RIGHT KIDNEY: 8.7 x 4.8 x 4.1 cm SPLEEN: 12.6 cm length FINDINGS: LIVER: Normal echotexture without focal lesion or ductal dilatation. Hepatopedal flow within the portal vein . COMMON DUCT: No intraluminal mass or stone visualized. A the duct is at the upper range of normal in terms of size in someone that is status post cholecystectomy. GALLBLADDER: Surgically absent. PANCREAS: The visualized portions are within normal limits. RIGHT KIDNEY: The right kidney is small and echogenic with cortical thinning. No hydronephrosis. Fluid is seen with in the proximal ureter without dilatation. 8 mm cyst is noted. SPLEEN: Mild splenomegaly. No discrete lesion. CONCLUSION: 1. Prior cholecystectomy. 2. Common bile duct at the upper range of normal in terms of size for patient that is status post cho lecystectomy. No intrahepatic ductal dilatation. 3. Splenomegaly. 4. No acute abnormality. 5. Small echogenic right kidney suggesting underlying medical renal disease. Julio Espinoza Jr., MD on July 19, 2017 at 19:30 Board Certified Radiologist. This report was verified electronically.
[2017-07-19 20:30] VITALS: BP 156/68; PULSE 67; RESP 17; TEMP 97.7; O2SAT 98
[2017-07-19] MEDS: MIRTAZAPINE 15 MG TAB PO SCH (21:21)
[2017-07-19] MEDS: SODIUM CHLORIDE 0.9% FLUSH 10 ML FLUSH IV FLUSH PRN (21:21)
[2017-07-19] MEDS: NS + KCL 20 MEQ INJ 1,000 ML IV SCH ×2 (21:22→22:52)
[2017-07-19] MEDS: CHOLESTYRAMINE 4 GM PACKET PO SCH (21:22)
[2017-07-20 00:25] VITALS: BP 141/68; PULSE 88; RESP 16; TEMP 99; O2SAT 95
[2017-07-20] MEDS: hydrOXYzine HCL 25 MG TAB PO PRN ×2 (05:37→17:58)
[2017-07-20] MEDS: LOPERAMIDE HCL 2 MG CAP PO PRN ×2 (05:37→15:50)
[2017-07-20] MEDS: LEVOTHYROXINE SODIUM 88 MCG TAB PO SCH (05:37)
[2017-07-20] MEDS: ACETAMINOPHEN/HYDROcodone 325 MG/5 MG TAB PO PRN ×2 (05:37→19:49)
[2017-07-20 06:46] LABS: BICARBONATE 18.4 MEQ/L (21.0-32.0); POTASSIUM 3.5 MEQ/L (3.5-5.1)
[2017-07-20 08:00] VITALS: BP 107/50; PULSE 56; RESP 17; TEMP 96.4; O2SAT 96
[2017-07-20] MEDS: FLUTICASONE 100 MCG/VILANTEROL 25 MCG INHALER INH SCH (09:00)
--- NOTE | 2017-07-20 09:34 | HHI.GIFU ---
GI Follow-up Note Consult Follow-up Subjective: Patient laying in bed comfortably, no new complaints and states abd pain minimal but diarrhea no better. Objective: PHYSICAL EXAMINATION: Vitals signs stable No fever ABDOMEN: Soft, nondistended,mild epigastric tenderness. 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 Available Data (labs, X- Rays, Procedues) : Liver US-mildly dilated CBD (probably reservoir effect). Lipase decreasing ASSESSMENT/PLAN: 1. Acute diarrhea. Continue cholestyramine. Possible colonoscopy saturday. 2. elevated lipase. Possible mild pancreatitis. Suggest MRCP. Full liquids. It was a pleasure seeing Luana Moon Thank you for this consult. Entered by: Giovani Serrano MD Jul 20, 2017 09:34
[2017-07-20] MEDS: NS + KCL 20 MEQ INJ 1,000 ML IV SCH ×2 (09:38→22:48)
[2017-07-20] MEDS: CHOLESTYRAMINE 4 GM PACKET PO SCH ×2 (09:39→21:53)
[2017-07-20] MEDS: BETHANECHOL CHL 25 MG TAB PO SCH ×4 (09:41→22:46)
[2017-07-20] MEDS: HEPARIN SODIUM - SQ 10,000 UNITS/ML VIAL SQ SCH ×2 (09:42→21:58)
[2017-07-20] MEDS: LACTOBACILLUS ACIDOPHILUS TAB PO SCH ×2 (09:42→22:46)
[2017-07-20 12:00] VITALS: BP 119/70; PULSE 60; RESP 17; TEMP 97; O2SAT 97
--- NOTE | 2017-07-20 13:53 | RADRPT ---
EXAM DATE/TIME: 07/20/2017 13:08 [facility] COMPARISON: US ABDOMEN - LIVER, July 19, 2017, 18:31. INDICATIONS : Pancreatitis. H/O cholecystectomy. MEDICAL HISTORY : None. SURGICAL HISTORY : Thyroidectomy. Hysterectomy. Cholecystectomy. Orthopedic surgeries ENCOUNTER: Subsequent ACUITY: 2 day PAIN SCORE: 2/10 LOCATION: TECHNIQUE: Multiplanar, multisequence magnetic resonance imaging of the abdomen was performed. High-resolution 3D dataset was utilized to reconstruct maximum-intensity projection (MIP) images. FINDINGS: INTRAHEPATIC BILE DUCTS: Within normal limits. No significant anatomical variant is present. EXTRAHEPATIC BILE DUCTS: The common bile duct measures 1.1 cm at the pancreatic head. There appears to be a fine 6 mm stone in the distal duct. GALLBLADDER: Gallbladder is nonvisualized characteristic of a reported history of cholecystectomy. LIVER: Normal size and signal intensity. No concerning liver lesion is identified on this non-contrast exam. PANCREAS: The main pancreatic duct is normal in size. There is no significant anatomical variant. Signal inte nsity is within normal limits. No mass is visualized on this non-contrast exam. OTHER: The remaining visualized structures demonstrate no acute abnormality on this non-contrast exam. Benig n-appearing 1.1 cm cyst in the lateral midpole of the right kidney. CONCLUSION: 1. Prominence of the extrahepatic biliary tree with the CBD measuring 1.1 cm the pancreatic head. 2. Choledocholithiasis with a 5-6 mm stone in the distal duct. Reid Ortega MD on July 20, 2017 at 13:45 Board Certified Radiologist. This report was verified electronically.
--- NOTE | 2017-07-20 15:21 | HHI.PR ---
Subjective Remarks Follow-up abdominal pain pancreatitis. The patient states that she is feeling better today. No nausea or vomiting. Still having diarrhea. Objective Vitals Vital Signs Date Time Temp Pulse Resp B/P (MAP) Pulse Ox O2 Delivery O2 Flow Rate FiO2 07/20/17 12:00 97.0 60 17 119/70 (86) 97 07/20/17 08:00 96.4 56 17 107/50 (69) 96 07/20/17 00:25 99.0 88 16 141/68 (92) 95 07/19/17 20:30 97.7 67 17 156/68 (97) 98 07/19/17 16:00 97.5 67 17 134/66 (88) 96 I/O 07/19/17 07/19/17 07/19/17 07/20/17 07/20/17 07/20/17 07:00 15:00 23:00 07:00 15:00 23:00 Intake Total 420 ml 510 ml 1212 ml 332 ml Output Total 200 ml Balance 220 ml 510 ml 1212 ml 332 ml Intake Oral 510 ml 580 ml IV Total 420 ml 632 ml 332 ml Output Urine Total 200 ml # Voids 4 2 # Bowel Movements 2 6 2 Result Diagram: 07/18/17 1130 07/20/17 0602 Imaging Last Impressions Cholangiopancreatography MRI 07/20/17 0000 Signed Impressions: Service Date/Time: Thursday, July 20, 2017 13:08 - CONCLUSION: 1. Prominence of the extrahepatic biliary tree with the CBD measuring 1.1 cm the pancreatic head. 2. Choledocholithiasis with a 5-6 mm stone in the distal duct. Reid Ortega MD Liver Ultrasound 07/19/17 0000 Signed Impressions: Service Date/Time: Wednesday, July 19, 2017 18:31 - CONCLUSION: 1. Prior cholecystectomy. 2. Common bile duct at the upper range of normal in terms of size for patient that is status post cholecystectomy. No intrahepatic ductal dilatation. 3. Splenomegaly. 4. No acute abnormality. 5. Small echogenic right kidney suggesting underlying medical renal disease. Julio Espinoza Jr., MD Objective Remarks General: Thin elderly female in no acute distress. Heart: Regular rate and rhythm. No murmur. Lungs: Clear to auscultation bilaterally. No wheezes, rales, or rhonchi. Breathing is nonlabored. Abdomen: Soft, nontender, nondistended. Extremities: No lower extremity edema. Psych: Alert and oriented. Procedures None Urinary Catheter: No Vascular Central Line Catheter: No A/P Problem List: (1) Pancreatitis ICD Code: K85.90 - Acute pancreatitis without necrosis or infection, unspecified (2) Acute kidney injury ICD Code: N17.9 - Acute kidney failure, unspecified (3) Hypokalemia ICD Code: E87.6 - Hypokalemia (4) Diarrhea ICD Code: R19.7 - Diarrhea, unspecified (5) Chronic obstructive pulmonary disease ICD Code: J44.9 - Chronic obstructive pulmonary disease Status: Acute Assessment and Plan 1. Acute pancreatitis: Uncertain etiology. Continue IV fluids, pain control. Appreciate GI recommendations. Lipase is trending down. MRCP done today. Full liquid diet. 2. Diarrhea: Uncertain etiology. C. difficile negative. Appreciate GI recommendations. Continue cholestyramine. Possible colonoscopy Saturday. 3. Acute kidney injury: Secondary to dehydration. Continue IV fluids. Monitor labs. 4. Hypokalemia: Supplement potassium. Recheck labs in the morning. 5. COPD: Not in exacerbation. Continue Breo, albuterol. 6. Hypothyroidism: Continue Synthroid. 7. DVT prophylaxis: Subcutaneous heparin. Problem Qualifiers (1) Pancreatitis: Qualified Codes: K85.90 - Acute pancreatitis without necrosis or infection, unspecified Yinka Mcneil MD Jul 20, 2017 15:21
[2017-07-20] MEDS: ONDANSETRON HCL 4 MG/2 ML VIAL IV PUSH PRN (15:50)
[2017-07-20 16:00] VITALS: BP 141/69; PULSE 74; RESP 17; TEMP 97.5; O2SAT 96
[2017-07-20 20:24] LABS: BLOOD, URINE NEG (NEG); COMMENT (UR) CULT NOT INDICATED; CULTURE IF INDICATED CULT NOT INDICATED; GLUCOSE,URINE NEG (NEG); KETONE, URINE NEG (NEG); NITRITE,URINE NEG (NEG); TRANSITIONAL EPI CELLS, URINE <1 /hpf; URINE COLOR LIGHT-YELLOW (YELLW/STRAW)
[2017-07-20 21:48] VITALS: BP 155/69; PULSE 65; RESP 18; TEMP 98.6; O2SAT 99
[2017-07-20] MEDS: MIRTAZAPINE 15 MG TAB PO SCH (22:46)
[2017-07-21] VITALS: BP 129/59; PULSE 68; RESP 20; TEMP 96.8; O2SAT 95
[2017-07-21] MEDS: hydrOXYzine HCL 25 MG TAB PO PRN ×3 (01:51→20:11)
[2017-07-21] MEDS: ACETAMINOPHEN/HYDROcodone 325 MG/5 MG TAB PO PRN ×3 (01:52→20:11)
[2017-07-21] MEDS: LEVOTHYROXINE SODIUM 88 MCG TAB PO SCH (06:35)
[2017-07-21 06:58] LABS: ALKALINE PHOSPHATASE 92 U/L (45-117); ALT (GPT) 10 U/L (10-53); ANION GAP 9 MEQ/L (5-15); AST (GOT) 14 U/L (15-37); BLOOD UREA NITROGEN 6 MG/DL (7-18); CHLORIDE 120 MEQ/L (98-107); GLOMERULAR FILTRATION RATE 64 ML/MIN (>89); POTASSIUM 3.8 MEQ/L (3.5-5.1); SODIUM (NA) 145 MEQ/L (136-145); TOTAL BILIRUBIN ADULT 0.2 MG/DL (0.2-1.0)
[2017-07-21 08:00] VITALS: BP 126/60; PULSE 67; RESP 15; TEMP 98.7; O2SAT 94
[2017-07-21] MEDS: FLUTICASONE 100 MCG/VILANTEROL 25 MCG INHALER INH SCH (09:00)
[2017-07-21] MEDS: ONDANSETRON HCL 4 MG/2 ML VIAL IV PUSH PRN (09:02)
[2017-07-21] MEDS: BETHANECHOL CHL 25 MG TAB PO SCH ×4 (09:05→20:11)
[2017-07-21] MEDS: LACTOBACILLUS ACIDOPHILUS TAB PO SCH ×2 (09:05→20:11)
[2017-07-21] MEDS: HEPARIN SODIUM - SQ 10,000 UNITS/ML VIAL SQ SCH ×2 (09:09→20:12)
[2017-07-21] MEDS: CHOLESTYRAMINE 4 GM PACKET PO SCH (09:11)
--- NOTE | 2017-07-21 09:47 | HHI.PR ---
Subjective Remarks Follow-up pancreatitis. Patient continues to have nausea and abdominal discomfort. No chest pain or dyspnea. Still having loose stools. Objective Vitals Vital Signs Date Time Temp Pulse Resp B/P (MAP) Pulse Ox O2 Delivery O2 Flow Rate FiO2 07/21/17 08:00 98.7 67 15 126/60 (82) 94 07/21/17 00:00 96.8 68 20 129/59 (82) 95 07/20/17 21:48 98.6 65 18 155/69 (97) 99 07/20/17 16:00 97.5 74 17 141/69 (93) 96 07/20/17 12:00 97.0 60 17 119/70 (86) 97 I/O 07/20/17 07/20/17 07/20/17 07/21/17 07/21/17 07/21/17 07:00 15:00 23:00 07:00 15:00 23:00 Intake Total 1212 ml 332 ml 1927 ml 655 ml Output Total 250 ml Balance 1212 ml 332 ml 1927 ml 405 ml Intake Oral 580 ml 960 ml IV Total 632 ml 332 ml 967 ml 655 ml Output Urine Total 250 ml # Voids 2 2 # Bowel Movements 2 3 Result Diagram: 07/18/17 1130 07/21/17 0500 Imaging Last Impressions Cholangiopancreatography MRI 07/20/17 0000 Signed Impressions: Service Date/Time: Thursday, July 20, 2017 13:08 - CONCLUSION: 1. Prominence of the extrahepatic biliary tree with the CBD measuring 1.1 cm the pancreatic head. 2. Choledocholithiasis with a 5-6 mm stone in the distal duct. Reid Ortega MD Liver Ultrasound 07/19/17 0000 Signed Impressions: Service Date/Time: Wednesday, July 19, 2017 18:31 - CONCLUSION: 1. Prior cholecystectomy. 2. Common bile duct at the upper range of normal in terms of size for patient that is status post cholecystectomy. No intrahepatic ductal dilatation. 3. Splenomegaly. 4. No acute abnormality. 5. Small echogenic right kidney suggesting underlying medical renal disease. Julio Espinoza Jr., MD Objective Remarks General: Thin elderly female in no acute distress. Appears uncomfortable. Heart: Regular rate and rhythm. No murmur. Lungs: Clear to auscultation bilaterally. No wheezes, rales, or rhonchi. Breathing is nonlabored. Abdomen: Soft, mild diffuse tenderness to palpation without rebound or guarding , nondistended. Extremities: No lower extremity edema. Psych: Alert and oriented. Procedures None Urinary Catheter: No Vascular Central Line Catheter: No A/P Problem List: (1) Pancreatitis ICD Code: K85.90 - Acute pancreatitis without necrosis or infection, unspecified (2) Acute kidney injury ICD Code: N17.9 - Acute kidney failure, unspecified (3) Hypokalemia ICD Code: E87.6 - Hypokalemia (4) Diarrhea ICD Code: R19.7 - Diarrhea, unspecified (5) Chronic obstructive pulmonary disease ICD Code: J44.9 - Chronic obstructive pulmonary disease Status: Acute Assessment and Plan 1. Acute pancreatitis: Uncertain etiology. Continue IV fluids, pain control. Appreciate GI recommendations. Lipase is within normal limits. Status post MRCP. Full liquid diet. 2. Diarrhea: Uncertain etiology. C. difficile negative. Appreciate GI recommendations. Continue cholestyramine. Possible colonoscopy tomorrow. 3. Acute kidney injury: Secondary to dehydration. Continue IV fluids. Monitor labs. 4. Hypokalemia: Improved. 5. COPD: Not in exacerbation. Continue Breo, albuterol. 6. Hypothyroidism: Continue Synthroid. 7. DVT prophylaxis: Subcutaneous heparin. Problem Qualifiers (1) Pancreatitis: Qualified Codes: K85.90 - Acute pancreatitis without necrosis or infection, unspecified Yinka Mcneil MD Jul 21, 2017 09:47
[2017-07-21] MEDS: NS + KCL 20 MEQ INJ 1,000 ML IV SCH (10:49)
--- NOTE | 2017-07-21 11:25 | HHI.GIFU ---
GI Follow-up Note Consult Follow-up Subjective: Patient laying in bed comfortably, no new complaints except still c /o diarrhea. Abd pain resoved. Objective: PHYSICAL EXAMINATION: Vitals signs stable No fever CHEST: Breathing non-labored CARDIAC: Regular rate and rhythm with no murmur gallop or rubs. ABDOMEN: Soft, nondistended, nontender SKIN: warm and dry JAILOR: alert and oriented times three. Available Data (labs, X- Rays, Procedues) : LFTs and lipase have normalized. MRCP shows a stone distal CBD ASSESSMENT/PLAN: 1. Diarrhea-unexplained etiology. Will plan on colonoscopy for tomorrow. R/O colitis. 2. Chandler's esophagus-due for surveillance EGD which will do tomorrow. 3. Mild gallstone pancreatitis-resolving. 4. Choledocholithiasis-will need ERCP in the near future. It was a pleasure seeing Luana Moon Thank you for this consult. Entered by: Giovani Serrano MD Jul 21, 2017 11:24
[2017-07-21] MEDS ORDERED: PEG (High)/E-LYTE SOLN 4000 ML BTL PO ONE (11:30)
[2017-07-21 12:00] VITALS: BP 127/68; PULSE 69; RESP 16; TEMP 98; O2SAT 95
[2017-07-21 14:38] VITALS: BP 150/84; PULSE 72; RESP 16; O2SAT 98
--- NOTE | 2017-07-21 15:44 | RADRPT ---
EXAM DATE/TIME: 07/21/2017 15:05 [facility] COMPARISON: CHEST SINGLE AP, September 28, 2016, 6:49. INDICATIONS : Dyspnea MEDICAL HISTORY : Chronic obstructive pulmonary disease. SURGICAL HISTORY : Thyroidectomy. Hysterectomy. Cholecystectomy. Orthopedic surgeries ENCOUNTER: Subsequent ACUITY: 2 days PAIN SCORE: 0/10 LOCATION: chest FINDINGS: A single view of the chest demonstrates lungs to be hyperinflated with some interstitial prominence p robably representing some degree of fibrosis/COPD. Bibasilar atelectatic changes/scarring with some b lunting of the right costophrenic angle which may represent a small effusion. Benign granulomatous ty pe calcifications are stable in the left upper lobe. Heart size is normal. Osseous structures are int act. CONCLUSION: 1. Hyperinflation with plain film findings of some degree of fibrosis, particularly in the apices. 2. Bibasilar atelectatic changes with possible small associated right-sided effusion. 3. No confluent infiltrate. 4. Stable, benign-appearing probable granulomatous type calcifications in the left upper lung. Reid Ortega MD on July 21, 2017 at 15:41 Board Certified Radiologist. This report was verified electronically.
[2017-07-21 16:00] VITALS: BP 128/75; PULSE 70; RESP 17; TEMP 97.4; O2SAT 95
[2017-07-21] MEDS ORDERED: INSULIN HUMAN REGULAR 1,000 UNITS/10 ML VIAL SQ PRN (16:45)
[2017-07-21] MEDS ORDERED: LACTATED RINGER'S 1000 ML IV PRN (16:45)
[2017-07-21] MEDS ORDERED: CHLORHEXIDINE GLUCONATE 2 % 1 PACK (2 CLOTHS) TOPICAL PRN (16:45)
[2017-07-21] MEDS ORDERED: SODIUM CHLORID 0.9% 500 ML IV PRN (16:45)
[2017-07-21] MEDS ORDERED: METOPROLOL TARTRATE 25 MG TAB PO PRN (16:45)
[2017-07-21] MEDS ORDERED: POVIDONE IODINE 5% (ANTISEPSIS KIT) 4 APPLICATIONS EACH NARE PRN (16:45)
[2017-07-21 20:00] VITALS: BP 154/72; PULSE 72; RESP 18; TEMP 97.9; O2SAT 98
[2017-07-21] MEDS: MIRTAZAPINE 15 MG TAB PO SCH (20:11)
[2017-07-22] VITALS: BP 155/70; PULSE 69; RESP 17; TEMP 98.3; O2SAT 99
[2017-07-22] MEDS: CHOLESTYRAMINE 4 GM PACKET PO SCH ×3 (03:05→21:00)
[2017-07-22] MEDS: NS + KCL 20 MEQ INJ 1,000 ML IV SCH ×2 (03:05→12:30)
[2017-07-22] MEDS: LEVOTHYROXINE SODIUM 88 MCG TAB PO SCH (06:05)
[2017-07-22 07:57] LABS: BASOPHIL # 0.1 TH/MM3 (0-0.2); EOSINOPHIL # 0.4 TH/MM3 (0-0.4); EOSINOPHIL % 5.8 % (0.0-4.0); HEMATOCRIT 32.7 % (35.0-46.0); HEMO FLAGS DIFF FINAL; LYMPH % 20.1 % (9.0-44.0); LYMPHOCYTE # 1.3 TH/MM3 (1.0-4.8); MEAN CELL VOLUME 80.8 FL (80.0-100.0); MEAN CORPUSCULAR HEMOGLOBIN 27.5 PG (27.0-34.0); MONO % 11.6 % (0.0-8.0); NEUT % 61.5 % (16.0-70.0); PLATELET COUNT 237 TH/MM3 (150-450); RED BLOOD COUNT 4.04 MIL/MM3 (4.00-5.30); RED CELL DISTRIBUTION WIDTH 16.3 % (11.6-17.2); WHITE BLOOD COUNT 6.6 TH/MM3 (4.0-11.0)
[2017-07-22 08:00] VITALS: BP 176/88; PULSE 83; RESP 18; TEMP 97.7; O2SAT 100
[2017-07-22 08:06] VITALS: O2SAT 99
[2017-07-22 08:06] LABS: BICARBONATE 16.9 MEQ/L (21.0-32.0); MAGNESIUM 1.2 MG/DL (1.5-2.5); POTASSIUM 3.9 MEQ/L (3.5-5.1)
[2017-07-22] MEDS: HEPARIN SODIUM - SQ 10,000 UNITS/ML VIAL SQ SCH ×2 (09:00→20:27)
[2017-07-22] MEDS: BETHANECHOL CHL 25 MG TAB PO SCH ×4 (09:00→20:26)
[2017-07-22] MEDS: LACTOBACILLUS ACIDOPHILUS TAB PO SCH ×2 (09:00→20:26)
[2017-07-22] MEDS: FLUTICASONE 100 MCG/VILANTEROL 25 MCG INHALER INH SCH (09:17)
--- NOTE | 2017-07-22 09:47 | HHI.PR ---
Subjective Remarks Follow-up nausea, vomiting, abdominal pain. Patient still feeling nauseous this morning. Abdominal pain is unchanged. Denies chest pain or dyspnea. Going for endoscopy today. Objective Vitals Vital Signs Date Time Temp Pulse Resp B/P (MAP) Pulse Ox O2 Delivery O2 Flow Rate FiO2 07/22/17 08:06 99 Nasal Cannula 2.00 07/22/17 08:00 97.7 83 18 176/88 (117) 100 07/22/17 00:00 98.3 69 17 155/70 (98) 99 07/21/17 20:00 97.9 72 18 154/72 (99) 98 07/21/17 16:00 97.4 70 17 128/75 (92) 95 07/21/17 14:38 72 16 150/84 (106) 98 07/21/17 12:00 98.0 69 16 127/68 (87) 95 I/O 07/21/17 07/21/17 07/21/17 07/22/17 07/22/17 07/22/17 07:00 15:00 23:00 07:00 15:00 23:00 Intake Total 655 ml 344 ml 240 ml 2332 ml Output Total 250 ml Balance 405 ml 344 ml 240 ml 2332 ml Intake Oral 240 ml 1080 ml IV Total 655 ml 344 ml 1252 ml Output Urine Total 250 ml # Voids 6 2 # Bowel Movements 2 6 Result Diagram: 07/22/17 0716 07/22/17 0716 Imaging Last Impressions Chest X-Ray 07/21/17 0000 Signed Impressions: Service Date/Time: Friday, July 21, 2017 15:05 - CONCLUSION: 1. Hyperinflation with plain film findings of some degree of fibrosis, particularly in the apices. 2. Bibasilar atelectatic changes with possible small associated right-sided effusion. 3. No confluent infiltrate. 4. Stable, benign-appearing probable granulomatous type calcifications in the left upper lung. Reid Ortega MD Cholangiopancreatography MRI 07/20/17 0000 Signed Impressions: Service Date/Time: Thursday, July 20, 2017 13:08 - CONCLUSION: 1. Prominence of the extrahepatic biliary tree with the CBD measuring 1.1 cm the pancreatic head. 2. Choledocholithiasis with a 5-6 mm stone in the distal duct. Reid Ortega MD Liver Ultrasound 07/19/17 0000 Signed Impressions: Service Date/Time: Wednesday, July 19, 2017 18:31 - CONCLUSION: 1. Prior cholecystectomy. 2. Common bile duct at the upper range of normal in terms of size for patient that is status post cholecystectomy. No intrahepatic ductal dilatation. 3. Splenomegaly. 4. No acute abnormality. 5. Small echogenic right kidney suggesting underlying medical renal disease. Julio Espinoza Jr., MD Objective Remarks General: Thin elderly female in no acute distress. Appears uncomfortable. Heart: Regular rate and rhythm. No murmur. Lungs: Clear to auscultation bilaterally. No wheezes, rales, or rhonchi. Breathing is nonlabored. Abdomen: Soft, mild diffuse tenderness to palpation without rebound or guarding , nondistended. Extremities: No lower extremity edema. Psych: Alert and oriented. Procedures None Urinary Catheter: No Vascular Central Line Catheter: No A/P Problem List: (1) Pancreatitis ICD Code: K85.90 - Acute pancreatitis without necrosis or infection, unspecified (2) Acute kidney injury ICD Code: N17.9 - Acute kidney failure, unspecified (3) Hypokalemia ICD Code: E87.6 - Hypokalemia (4) Diarrhea ICD Code: R19.7 - Diarrhea, unspecified (5) Chronic obstructive pulmonary disease ICD Code: J44.9 - Chronic obstructive pulmonary disease Status: Acute Assessment and Plan 1. Acute pancreatitis: Uncertain etiology. Continue IV fluids, pain control. Appreciate GI recommendations. Lipase is within normal limits. Status post MRCP. Currently nothing by mouth for procedure. 2. Diarrhea: Uncertain etiology. C. difficile negative. Appreciate GI recommendations. Continue cholestyramine. EGD, colonoscopy today. 3. Acute kidney injury: Secondary to dehydration. Continue IV fluids. Monitor labs. 4. Hypokalemia: Improved. 5. COPD: Not in exacerbation. Continue Breo, albuterol. 6. Hypothyroidism: Continue Synthroid. 7. Hypomagnesemia: Supplement magnesium. 8. DVT prophylaxis: Subcutaneous heparin. Problem Qualifiers (1) Pancreatitis: Qualified Codes: K85.90 - Acute pancreatitis without necrosis or infection, unspecified Yinka Mcneil MD Jul 22, 2017 09:47
[2017-07-22] MEDS: MAGNESIUM SULFATE 1 GM PREMIX 100 ML IV SCH ×4 (10:00→17:02)
[2017-07-22 11:49] VITALS: BP 163/71; PULSE 67; RESP 18; TEMP 97; O2SAT 100
[2017-07-22] MEDS ORDERED: LIDOCAINE HCL 1% PF 5 ML AMPULE OTHER ONE (12:00)
[2017-07-22] MEDS ORDERED: PROPOFOL 200 MG/20 ML AMP IV ONE (12:00)
--- NOTE | 2017-07-22 13:02 | GIPROC ---
[facility] [address] [facility]. [facility], [address] COLONOSCOPY PROCEDURE REPORT EXAM DATE: 07/22/2017 PATIENT NAME: Luana Moon MR #: [id number] BIRTHDATE: 1940 ENDOSCOPIST: Giovani Rodríguez MD ORDER #: [id number] GRANULAR OPERATOR: Juve Spivey and Kavita Diallo STATUS: inpatient INDICATIONS: The patient is a 77 yr old female here for a colonoscopy due to unexplained diarrhea PROCEDURE PERFORMED: Colonoscopy with biopsy MEDICATIONS: Per Anesthesia and None. PREP QUALITY: fair PREP TYPE:GoLytely ESTIMATED BLOOD LOSS: None CONSENT: The patient understands the risks and benefits of the procedure and understands that these risks include, but are not limited to: sedation, allergic reaction, infection, perforation and/or bleeding. Alternative means of evaluation and treatment include, among others: physical exam, x-rays, and/or surgical intervention. The patient elects to proceed with this endoscopic procedure. medical equipment was checked for proper function. Hand hygiene and appropriate measures for infection prevention was taken. After the risks, benefits and alternatives of the procedure were thoroughly explained, Informed consent was verified, confirmed and timeout was successfully executed by the treatment team. A digital exam revealed decreased sphincter tone The Pentax [id number] endoscope was introduced through the anus and advanced to the hepatic flexure. The instrument was then slowly withdrawn as the colon was fully examined. COLON FINDINGS: Mild diverticulosis was noted in the transverse colon and sigmoid colon. The colon mucosa was otherwise normal. Multiple biopsies were performed using cold forceps. Retroflexion was not performed The scope was then completely withdrawn from the patient and the procedure terminated. ADVERSE EVENTS: There were no complications. IMPRESSIONS: 1. Mild diverticulosis was noted in the transverse colon and sigmoid colon 2. Retroflexion was not performed 3. Revealed decreased sphincter tone RECOMMENDATIONS: Await biopsy results. Biopsy results will not be ready for 7-10 days. If you don't hear from us in two weeks, call our office for results. RECALL: Return 2 years Colonoscopy Giovani Rodríguez MD eSigned: Giovani Rodríguez MD 07/22/2017 1:02 PM cc: Maico Beckman M.D.
--- NOTE | 2017-07-22 13:08 | GIPROC ---
[facility] [address] [facility]. [facility], [address] EGD PROCEDURE REPORT EXAM DATE: 07/22/2017 PATIENT NAME: Luana Moon MR #: [id number] BIRTHDATE: 1940 ATTENDING: Giovani Rodríguez MD ORDER #: [id number] SOLICITING FREIGHT AGENT: Juve Spivey and Kavita Diallo STATUS: inpatient INDICATIONS: The patient is a 77 yr old female here for an EGD due to heartburn and history of Chandler's esophagus PROCEDURE PERFORMED: EGD w/ biopsy MEDICATIONS: Per Anesthesia and None. TOPICAL ANESTHETIC: none CONSENT: The patient understands the risks and benefits of the procedure and understands that these risks include, but are not limited to: sedation, allergic reaction, infection, perforation and/or bleeding. Alternative means of evaluation and treatment include, among others: physical exam, x-rays, and/or surgical intervention. The patient elects to proceed with this endoscopic procedure. medical equipment was checked for proper function. Hand hygiene and appropriate measures for infection prevention was taken. After the risks, benefits and alternatives of the procedure were thoroughly explained, Informed consent was verified, confirmed and timeout was successfully executed by the treatment team. The patient was anesthetized with topical anesthesia and the Pentax [id number] endoscope was introduced through the mouth and advanced to the second portion of the duodenum. Retroflexed views revealed Prior fundoplication The gastroscope was then slowly withdrawn and removed. Severe esophagitis mid and distal esophagus with white exudate. Multiple biopsies were performed using cold forceps. Z line at 37cm. No apparent Chandler's but Bxs of GE junction obtained. Prior fundoplication otherwise unremarkable stomach. DUODENUM: The duodenal mucosa appeared normal in the duodenal bulb and 2nd part duodenum. ADVERSE EVENTS: There were no complications. IMPRESSIONS: 1. Severe esophagitis mid and distal esophagus with white exudate 2. Z line at 37cm. No apparent Chandler's but Bxs of GE junction obtained 3. Prior fundoplication otherwise unremarkable stomach 4. Normal duodenal mucosa in the duodenal bulb and 2nd part duodenum 5. Retroflexed views revealed Prior fundoplication RECOMMENDATIONS: Await biopsy results. Biopsy results will not be ready for 7-10 days. If you don't hear from us in two weeks, call our office for biopsy results. PATIENT CONDITION: fair DISPOSITION: Inpatient REPEAT EXAM: Giovani Rodríguez MD eSigned: Giovani Rodríguez MD 07/22/2017 1:08 PM cc: Maico Beckman M.D. PATIENT NAME: Luana Moon MR#: [id number]
[2017-07-22] MEDS ORDERED: DO NOT ADM ANY ANTICOAGULANT DRUGS PRN (14:00)
[2017-07-22 14:44] LABS: ANA SCREEN POS (NEG)
[2017-07-22 16:00] VITALS: BP 160/71; PULSE 72; RESP 18; TEMP 96.6; O2SAT 100
[2017-07-22 20:00] VITALS: BP 141/65; PULSE 69; RESP 16; TEMP 96.3; O2SAT 99
[2017-07-22] MEDS: MIRTAZAPINE 15 MG TAB PO SCH (20:26)
[2017-07-22] MEDS: ACETAMINOPHEN/HYDROcodone 325 MG/5 MG TAB PO PRN (20:27)
[2017-07-23] VITALS: BP 142/74; PULSE 62; RESP 16; TEMP 97; O2SAT 95
[2017-07-23] MEDS: ACETAMINOPHEN/HYDROcodone 325 MG/5 MG TAB PO PRN ×3 (03:26→19:19)
[2017-07-23] MEDS: LEVOTHYROXINE SODIUM 88 MCG TAB PO SCH (06:55)
[2017-07-23 07:59] VITALS: BP 167/79; PULSE 62; RESP 16; TEMP 97.9; O2SAT 94
[2017-07-23] MEDS: CHOLESTYRAMINE 4 GM PACKET PO SCH ×3 (09:00→21:00)
[2017-07-23 09:19] LABS: BICARBONATE 21.3 MEQ/L (21.0-32.0); MAGNESIUM 1.8 MG/DL (1.5-2.5); POTASSIUM 3.7 MEQ/L (3.5-5.1)
[2017-07-23] MEDS: NS + KCL 20 MEQ INJ 1,000 ML IV SCH ×2 (10:49→12:20)
[2017-07-23] MEDS: ONDANSETRON HCL 4 MG/2 ML VIAL IV PUSH PRN ×2 (10:50→19:19)
[2017-07-23] MEDS: HEPARIN SODIUM - SQ 10,000 UNITS/ML VIAL SQ SCH ×2 (10:52→20:56)
[2017-07-23] MEDS: LACTOBACILLUS ACIDOPHILUS TAB PO SCH ×2 (10:52→20:56)
[2017-07-23] MEDS: FLUTICASONE 100 MCG/VILANTEROL 25 MCG INHALER INH SCH (10:53)
[2017-07-23] MEDS: BETHANECHOL CHL 25 MG TAB PO SCH ×4 (10:53→20:58)
--- NOTE | 2017-07-23 11:04 | HHI.GIFU ---
GI Follow-up Note Consult Follow-up Subjective: Patient laying in bed comfortably, she states the diarrhea so far has stopped. I reviewed yesterday's EGD and colonoscopy findings. Bxs pending. NO abd pain. She would like to get ERCP done while inpatient. Objective: PHYSICAL EXAMINATION: Vitals signs stable No fever CHEST: breathing non-labored ABDOMEN: Soft, nondistended, nontender SKIN: warm and dry CHIEF I DISPATCHER: alert and oriented times three. Available Data (labs, X- Rays, Procedues) : ASSESSMENT/PLAN: 1. Diarrhea- improved. Colonoscopy to hepatic flexure unremarkable except for diverticulosis. Bxs for microscopic colitis pending. 2.Esophagitis-severe. Bx pending. R/O kelli esophagitis vs acid reflux alone. Continue PPI. 3. Choledocholithiasis- Dr Gómez to do ERCP. Will try to schedule for tomorrow. I discussed the risks of ERCP including pancreatitis. It was a pleasure seeing Luana Moon Thank you for this consult. Entered by: Giovani Serrano MD Jul 23, 2017 11:04
[2017-07-23 12:00] VITALS: BP 160/77; PULSE 61; RESP 16; TEMP 97.6; O2SAT 98
[2017-07-23] MEDS: PANTOPRAZOLE SOD 40 MG DELAYED RELEASE TAB PO SCH (13:07)
[2017-07-23] MEDS ORDERED: AMLO10TA2 PO (13:19)
[2017-07-23] MEDS: hydrOXYzine HCL 25 MG TAB PO PRN (14:04)
--- NOTE | 2017-07-23 14:23 | HHI.PR ---
Subjective Remarks Follow-up nausea, vomiting, abdominal pain. Patient still complaining of nausea. No vomiting today. Abdominal pain is somewhat better. Diarrhea has resolved. Objective Vitals Vital Signs Date Time Temp Pulse Resp B/P (MAP) Pulse Ox O2 Delivery O2 Flow Rate FiO2 07/23/17 07:59 97.9 62 16 167/79 (108) 94 07/23/17 00:00 97.0 62 16 142/74 (96) 95 07/22/17 21:12 Nasal Cannula 2.00 07/22/17 20:00 96.3 69 16 141/65 (90) 99 07/22/17 16:00 96.6 72 18 160/71 (100) 100 I/O 07/22/17 07/22/17 07/22/17 07/23/17 07/23/17 07/23/17 07:00 15:00 23:00 07:00 15:00 23:00 Intake Total 2332 ml 200 ml 420 ml 100 ml 479 ml Balance 2332 ml 200 ml 420 ml 100 ml 479 ml Intake Oral 1080 ml 420 ml IV Total 1252 ml 100 ml 479 ml Other 200 ml # Voids 2 5 2 # Bowel Movements 6 0 Result Diagram: 07/22/17 0716 07/23/17 0747 Imaging Last Impressions Chest X-Ray 07/21/17 0000 Signed Impressions: Service Date/Time: Friday, July 21, 2017 15:05 - CONCLUSION: 1. Hyperinflation with plain film findings of some degree of fibrosis, particularly in the apices. 2. Bibasilar atelectatic changes with possible small associated right-sided effusion. 3. No confluent infiltrate. 4. Stable, benign-appearing probable granulomatous type calcifications in the left upper lung. Reid Ortega MD Cholangiopancreatography MRI 07/20/17 0000 Signed Impressions: Service Date/Time: Thursday, July 20, 2017 13:08 - CONCLUSION: 1. Prominence of the extrahepatic biliary tree with the CBD measuring 1.1 cm the pancreatic head. 2. Choledocholithiasis with a 5-6 mm stone in the distal duct. Reid Ortega MD Liver Ultrasound 07/19/17 0000 Signed Impressions: Service Date/Time: Wednesday, July 19, 2017 18:31 - CONCLUSION: 1. Prior cholecystectomy. 2. Common bile duct at the upper range of normal in terms of size for patient that is status post cholecystectomy. No intrahepatic ductal dilatation. 3. Splenomegaly. 4. No acute abnormality. 5. Small echogenic right kidney suggesting underlying medical renal disease. Julio Espinoza Jr., MD Objective Remarks General: Thin elderly female in no acute distress. Heart: Regular rate and rhythm. No murmur. Lungs: Clear to auscultation bilaterally. No wheezes, rales, or rhonchi. Breathing is nonlabored. Abdomen: Soft, nontender, nondistended. Extremities: No lower extremity edema. Psych: Alert and oriented. Procedures 07/22/17 EGD, colonoscopy Urinary Catheter: No Vascular Central Line Catheter: No A/P Problem List: (1) Pancreatitis ICD Code: K85.90 - Acute pancreatitis without necrosis or infection, unspecified (2) Acute kidney injury ICD Code: N17.9 - Acute kidney failure, unspecified (3) Hypokalemia ICD Code: E87.6 - Hypokalemia (4) Diarrhea ICD Code: R19.7 - Diarrhea, unspecified (5) Chronic obstructive pulmonary disease ICD Code: J44.9 - Chronic obstructive pulmonary disease Status: Acute Assessment and Plan 1. Acute pancreatitis: Resolved. 2. Diarrhea: Uncertain etiology. C. difficile negative. Appreciate GI recommendations. Continue cholestyramine. EGD showed severe esophagitis. Colonoscopy showed mild diverticulosis. 3. Acute kidney injury: Secondary to dehydration. Continue IV fluids. Monitor labs. 4. Hypokalemia: Improved. 5. COPD: Not in exacerbation. Continue Breo, albuterol. 6. Hypothyroidism: Continue Synthroid. 7. Hypomagnesemia: Supplement magnesium. 8. DVT prophylaxis: Subcutaneous heparin. 9. Choledocholithiasis: ERCP tomorrow. Discussed with Dr. Rodríguez. Discharge Planning When cleared by GI. Problem Qualifiers (1) Pancreatitis: Qualified Codes: K85.90 - Acute pancreatitis without necrosis or infection, unspecified Yinka Mcneil MD Jul 23, 2017 14:23
[2017-07-23] MEDS: CALCIUM CARBONATE 500 MG CHEWABLE TAB PO PRN ×2 (17:49→19:19)
[2017-07-23 20:00] VITALS: BP_SYST 126; BP_SYST 160; BP_DIAS 69; BP_DIAS 72; PULSE 108; PULSE 61; RESP 18; RESP 20; TEMP 97.8; TEMP 98.1; O2SAT 95; O2SAT 98
[2017-07-23] MEDS: MIRTAZAPINE 15 MG TAB PO SCH (20:58)
[2017-07-23 22:45] VITALS: O2SAT 96
[2017-07-24] VITALS: BP 170/75; PULSE 67; RESP 18; TEMP 97.7; O2SAT 98
[2017-07-24] MEDS: NS + KCL 20 MEQ INJ 1,000 ML IV SCH ×2 (00:15→13:11)
[2017-07-24] MEDS ORDERED: ENALAPRILAT 1.25 MG/ML VIAL IV PUSH PRN (01:45)
[2017-07-24 04:46] VITALS: BP 153/71; PULSE 62; RESP 18; TEMP 96.7; O2SAT 99
[2017-07-24] MEDS: LEVOTHYROXINE SODIUM 88 MCG TAB PO SCH (05:57)
[2017-07-24] MEDS: ONDANSETRON HCL 4 MG/2 ML VIAL IV PUSH PRN (07:40)
[2017-07-24 08:00] VITALS: BP 141/61; PULSE 59; RESP 16; TEMP 96.8; O2SAT 98
[2017-07-24] MEDS: CALCIUM CARBONATE 500 MG CHEWABLE TAB PO PRN (08:16)
[2017-07-24] MEDS: LACTOBACILLUS ACIDOPHILUS TAB PO SCH ×2 (08:17→21:37)
[2017-07-24] MEDS: BETHANECHOL CHL 25 MG TAB PO SCH ×4 (08:17→21:37)
[2017-07-24] MEDS: PANTOPRAZOLE SOD 40 MG DELAYED RELEASE TAB PO SCH (08:18)
[2017-07-24] MEDS: ACETAMINOPHEN/HYDROcodone 325 MG/5 MG TAB PO PRN ×2 (08:18→21:43)
[2017-07-24] MEDS: HEPARIN SODIUM - SQ 10,000 UNITS/ML VIAL SQ SCH ×2 (09:00→21:37)
[2017-07-24] MEDS: CHOLESTYRAMINE 4 GM PACKET PO SCH ×2 (09:00→21:37)
--- NOTE | 2017-07-24 11:52 | HHI.PR ---
Subjective Remarks Follow-up nausea, abdominal pain. The patient complains of abdominal pain that is ongoing, not relieved by any of the current medications. She reports nausea, but no vomiting. No diarrhea overnight. Objective Vitals Vital Signs Date Time Temp Pulse Resp B/P (MAP) Pulse Ox O2 Delivery O2 Flow Rate FiO2 07/24/17 08:00 96.8 59 16 141/61 (87) 98 07/24/17 04:46 96.7 62 18 153/71 (98) 99 07/24/17 00:00 97.7 67 18 170/75 (106) 98 07/23/17 22:45 96 Nasal Cannula 2.00 07/23/17 20:00 98.1 61 18 160/72 (101) 98 07/23/17 12:00 97.6 61 16 160/77 (104) 98 I/O 07/23/17 07/23/17 07/23/17 07/24/17 07/24/17 07/24/17 07:00 15:00 23:00 07:00 15:00 23:00 Intake Total 100 ml 479 ml 460 ml Output Total 0 ml Balance 100 ml 479 ml 460 ml Intake Oral 460 ml IV Total 100 ml 479 ml Stool Total 0 ml # Voids 2 4 4 Result Diagram: 07/22/17 0716 07/23/17 0747 Imaging Last Impressions Chest X-Ray 07/21/17 0000 Signed Impressions: Service Date/Time: Friday, July 21, 2017 15:05 - CONCLUSION: 1. Hyperinflation with plain film findings of some degree of fibrosis, particularly in the apices. 2. Bibasilar atelectatic changes with possible small associated right-sided effusion. 3. No confluent infiltrate. 4. Stable, benign-appearing probable granulomatous type calcifications in the left upper lung. Reid Ortega MD Cholangiopancreatography MRI 07/20/17 0000 Signed Impressions: Service Date/Time: Thursday, July 20, 2017 13:08 - CONCLUSION: 1. Prominence of the extrahepatic biliary tree with the CBD measuring 1.1 cm the pancreatic head. 2. Choledocholithiasis with a 5-6 mm stone in the distal duct. Reid Ortega MD Liver Ultrasound 07/19/17 0000 Signed Impressions: Service Date/Time: Wednesday, July 19, 2017 18:31 - CONCLUSION: 1. Prior cholecystectomy. 2. Common bile duct at the upper range of normal in terms of size for patient that is status post cholecystectomy. No intrahepatic ductal dilatation. 3. Splenomegaly. 4. No acute abnormality. 5. Small echogenic right kidney suggesting underlying medical renal disease. Julio Espinoza Jr., MD Objective Remarks General: Thin elderly female in no acute distress. Heart: Regular rate and rhythm. No murmur. Lungs: Clear to auscultation bilaterally. No wheezes, rales, or rhonchi. Breathing is nonlabored. Abdomen: Soft, nontender, nondistended. Extremities: No lower extremity edema. Psych: Alert and oriented. Procedures 07/22/17 EGD, colonoscopy Urinary Catheter: No Vascular Central Line Catheter: No A/P Problem List: (1) Pancreatitis ICD Code: K85.90 - Acute pancreatitis without necrosis or infection, unspecified (2) Acute kidney injury ICD Code: N17.9 - Acute kidney failure, unspecified (3) Hypokalemia ICD Code: E87.6 - Hypokalemia (4) Diarrhea ICD Code: R19.7 - Diarrhea, unspecified (5) Chronic obstructive pulmonary disease ICD Code: J44.9 - Chronic obstructive pulmonary disease Status: Acute Assessment and Plan 1. Acute pancreatitis: Resolved. 2. Diarrhea: Resolved. 3. Acute kidney injury: Secondary to dehydration. Continue IV fluids. Monitor labs. 4. Hypokalemia: Improved. 5. COPD: Not in exacerbation. Continue Breo, albuterol. 6. Hypothyroidism: Continue Synthroid. 7. Hypomagnesemia: Supplement magnesium. 8. DVT prophylaxis: Subcutaneous heparin. 9. Choledocholithiasis: ERCP today. 10. Abdominal pain, nausea, vomiting: Likely secondary to above. Patient also noted on EGD to have severe esophagitis. Continue PPI. Add sucralfate. Discharge Planning When cleared by GI. Problem Qualifiers (1) Pancreatitis: Qualified Codes: K85.90 - Acute pancreatitis without necrosis or infection, unspecified Yinka Mcneil MD Jul 24, 2017 11:52
[2017-07-24 12:00] VITALS: BP 141/68; PULSE 57; RESP 15; TEMP 97.5; O2SAT 98
[2017-07-24 13:06] VITALS: O2SAT 97
[2017-07-24] MEDS ORDERED: DO NOT ADM ANY ANTICOAGULANT DRUGS PRN (16:40)
[2017-07-24] MEDS ORDERED: *ONDANSETRON 4 MG VIAL PERIprocedural Use ONLY ONE (16:46)
--- NOTE | 2017-07-24 16:52 | HHI.GIFU ---
GI Follow-up Note Consult Follow-up Post procedure note s/p ERCP ASSESSMENT/PLAN: 1. bile duct stones s/p ercp sphincterotomy balloon sweep stone and debris extraction 2. Two beatriz amp diverticulum 3. Dilated bile duct at 11 mm plan 1. Resume diet as tolerated 2. No further gi work up planned 3. call for questions. 4. Out pt follow up with Dr Lee. It was a pleasure seeing Luana Moon Thank you for this consult. Entered by: Layne Velez MD Jul 24, 2017 16:52
[2017-07-24] MEDS ORDERED: *morphine SULFATE 8 MG/ML PERIprocedure ONLY ONE ×2 (16:57→17:33)
[2017-07-24] MEDS: SUCRALFATE 1 GM TAB PO SCH (18:06)
[2017-07-24] MEDS: hydrOXYzine HCL 25 MG TAB PO PRN (18:07)
[2017-07-24] MEDS: FLUTICASONE 100 MCG/VILANTEROL 25 MCG INHALER INH SCH (18:08)
--- NOTE | 2017-07-24 18:18 | RADRPT ---
EXAM DATE/TIME: 07/24/2017 16:04 [facility] COMPARISON: MRCP W/O CONTRAST, July 20, 2017, 13:08. INDICATIONS : Dilated common bile duct. FLUORO TIME: 2.29 minutes IMAGE COUNT: 6 CONTRAST: Instilled by Ordering Physician MEDICAL HISTORY : Chronic obstructive pulmonary disease. SURGICAL HISTORY : Thyroidectomy. Hysterectomy. Cholecystectomy. ENCOUNTER: Initial ACUITY: 1 day PAIN SCORE: Non-responsive. LOCATION: abdomen. FINDINGS: An ERCP was performed by the ordering physician. 6 images have been submitted. On the first 3 images contrast is within the common bile duct measuring slightly larger than the endoscope. This is consistent with the common bile duct measuring over 1 cm . The common bile duct measures approximately 1.4 cm. There is some dilatation of the central intrahe patic biliary system. Contrast does is not seen to extend into the duodenum. There appears to be abru pt ending of the common bile duct concerning for either a mass or edema. On the third image, there is a questionable filling defect seen in the mid common bile duct. On the fourth image, significant con trast is not seen in the mid and distal common bile duct. On the fifth and sixth images, there is a 1 .2 cm oval filling defect seen in the distal common bile duct. Contrast is not seen within the duoden um on any image. CONCLUSION: Dilatation of the common bile duct with filling defects seen on several images and suspected edema in the distal common bile duct in the ampulla region. Stone Becker MD on July 24, 2017 at 18:09 Board Certified Radiologist. This report was verified electronically.
[2017-07-24 21:01] VITALS: BP 122/57; PULSE 74; RESP 18; TEMP 97.6; O2SAT 97
[2017-07-24] MEDS: MIRTAZAPINE 15 MG TAB PO SCH (21:37)
[2017-07-24] MEDS: SODIUM CHLORIDE 0.9% FLUSH 10 ML FLUSH IV FLUSH PRN (21:38)
[2017-07-25 00:42] VITALS: BP 120/61; PULSE 80; RESP 18; TEMP 98.2; O2SAT 99
[2017-07-25] MEDS: LEVOTHYROXINE SODIUM 88 MCG TAB PO SCH (05:12)
[2017-07-25] MEDS: SUCRALFATE 1 GM TAB PO SCH ×2 (05:12→16:06)
[2017-07-25] MEDS: NS + KCL 20 MEQ INJ 1,000 ML IV SCH (05:13)
[2017-07-25] MEDS: ACETAMINOPHEN/HYDROcodone 325 MG/5 MG TAB PO PRN ×2 (05:19→11:58)
[2017-07-25 08:00] VITALS: BP 136/80; PULSE 71; RESP 16; TEMP 99.5; O2SAT 98
[2017-07-25] MEDS: hydrOXYzine HCL 25 MG TAB PO PRN (08:42)
[2017-07-25] MEDS: LACTOBACILLUS ACIDOPHILUS TAB PO SCH (08:42)
[2017-07-25] MEDS: HEPARIN SODIUM - SQ 10,000 UNITS/ML VIAL SQ SCH (08:43)
[2017-07-25] MEDS: BETHANECHOL CHL 25 MG TAB PO SCH ×2 (08:43→12:09)
[2017-07-25] MEDS: PANTOPRAZOLE SOD 40 MG DELAYED RELEASE TAB PO SCH (08:43)
[2017-07-25] MEDS: FLUTICASONE 100 MCG/VILANTEROL 25 MCG INHALER INH SCH (08:45)
[2017-07-25] MEDS: CHOLESTYRAMINE 4 GM PACKET PO SCH (09:00)
[2017-07-25 12:00] VITALS: BP 138/65; PULSE 68; RESP 17; TEMP 97.6; O2SAT 97
--- NOTE | 2017-07-25 12:02 | HHI.DCPOC ---
Discharge Care Plan Diagnosis: (1) Choledocholithiasis (2) Esophagitis (3) Diarrhea (4) Acute kidney injury (5) Gastroesophageal reflux disease (6) Hypertension (7) Hypothyroidism Goals to Promote Your Health * To prevent worsening of your condition and complications * To maintain your health at the optimal level Directions to Meet Your Goals Take your medications as prescribed Follow your dietary instruction Follow activity as directed Keep your appointments as scheduled Take your immunizations and boosters as scheduled If your symptoms worsen call your PCP, if no PCP go to Urgent Care Center or Emergency Room Smoking is Dangerous to Your Health. Avoid second hand smoke Call the 24-hour hour crisis hotline for domestic abuse at Yinka Mcneil MD Jul 25, 2017 12:02
[2017-07-25] MEDS: ONDANSETRON HCL 4 MG/2 ML VIAL IV PUSH PRN (13:21)
--- NOTE | 2017-07-25 13:36 | HHI.PR ---
Subjective Remarks Follow-up abdominal pain. Patient states that her nausea has improved. She also has less abdominal pain. Feels that she is ready to go home. Objective Vitals Vital Signs Date Time Temp Pulse Resp B/P (MAP) Pulse Ox O2 Delivery O2 Flow Rate FiO2 07/25/17 12:00 97.6 68 17 138/65 (89) 97 07/25/17 08:00 99.5 71 16 136/80 (98) 98 07/25/17 06:19 20 07/25/17 00:42 98.2 80 18 120/61 (80) 99 07/24/17 21:31 Nasal Cannula 2.00 07/24/17 21:01 97.6 74 18 122/57 (78) 97 07/24/17 17:50 66 16 144/78 (100) 95 Room Air 07/24/17 17:45 66 16 154/68 (96) 95 Room Air 07/24/17 17:30 63 16 154/68 (96) 97 Nasal Cannula 2 07/24/17 17:15 63 16 143/65 (91) 99 Nasal Cannula 2 07/24/17 17:00 64 16 153/71 (98) 99 Nasal Cannula 2 07/24/17 16:43 97.4 68 16 151/71 (97) 98 Nasal Cannula 2 I/O 07/24/17 07/24/17 07/24/17 07/25/17 07/25/17 07/25/17 07:00 15:00 23:00 07:00 15:00 23:00 Intake Total 800 ml 1060 ml 1310 ml Balance 800 ml 1060 ml 1310 ml Intake Oral 480 ml IV Total 800 ml 160 ml 830 ml Other 900 ml # Voids 4 Result Diagram: 07/22/17 0716 07/23/17 0747 Imaging Last Impressions GI Procedure 07/24/17 0000 Signed Impressions: Service Date/Time: Monday, July 24, 2017 16:04 - CONCLUSION: Dilatation of the common bile duct with filling defects seen on several images and suspected edema in the distal common bile duct in the ampulla region. Stone Becker MD Chest X-Ray 07/21/17 0000 Signed Impressions: Service Date/Time: Friday, July 21, 2017 15:05 - CONCLUSION: 1. Hyperinflation with plain film findings of some degree of fibrosis, particularly in the apices. 2. Bibasilar atelectatic changes with possible small associated right-sided effusion. 3. No confluent infiltrate. 4. Stable, benign-appearing probable granulomatous type calcifications in the left upper lung. Reid Ortega MD Cholangiopancreatography MRI 07/20/17 0000 Signed Impressions: Service Date/Time: Thursday, July 20, 2017 13:08 - CONCLUSION: 1. Prominence of the extrahepatic biliary tree with the CBD measuring 1.1 cm the pancreatic head. 2. Choledocholithiasis with a 5-6 mm stone in the distal duct. Reid Ortega MD Liver Ultrasound 07/19/17 0000 Signed Impressions: Service Date/Time: Wednesday, July 19, 2017 18:31 - CONCLUSION: 1. Prior cholecystectomy. 2. Common bile duct at the upper range of normal in terms of size for patient that is status post cholecystectomy. No intrahepatic ductal dilatation. 3. Splenomegaly. 4. No acute abnormality. 5. Small echogenic right kidney suggesting underlying medical renal disease. Julio Espinoza Jr., MD Objective Remarks General: Thin elderly female in no acute distress. Heart: Regular rate and rhythm. No murmur. Lungs: Clear to auscultation bilaterally. No wheezes, rales, or rhonchi. Breathing is nonlabored. Abdomen: Soft, nontender, nondistended. Extremities: No lower extremity edema. Psych: Alert and oriented. Procedures 07/22/17 EGD, colonoscopy 07/24/17 ERCP Urinary Catheter: No Vascular Central Line Catheter: No A/P Problem List: (1) Pancreatitis ICD Code: K85.90 - Acute pancreatitis without necrosis or infection, unspecified (2) Acute kidney injury ICD Code: N17.9 - Acute kidney failure, unspecified (3) Hypokalemia ICD Code: E87.6 - Hypokalemia (4) Diarrhea ICD Code: R19.7 - Diarrhea, unspecified (5) Chronic obstructive pulmonary disease ICD Code: J44.9 - Chronic obstructive pulmonary disease Status: Acute Assessment and Plan 1. Acute pancreatitis: Resolved. 2. Diarrhea: Resolved. 3. Acute kidney injury: Secondary to dehydration. Continue IV fluids. Monitor labs. 4. Hypokalemia: Improved. 5. COPD: Not in exacerbation. Continue Breo, albuterol. 6. Hypothyroidism: Continue Synthroid. 7. Hypomagnesemia: Supplement magnesium. 8. DVT prophylaxis: Subcutaneous heparin. 9. Choledocholithiasis: Status post ERCP. Cleared for discharge by GI. 10. Abdominal pain, nausea, vomiting: Likely secondary to above. Patient also noted on EGD to have severe esophagitis. Continue PPI, sucralfate. Discharge Planning Cleared for discharge by GI. Plan for discharge today, pending recommendations from physical therapy. Problem Qualifiers (1) Pancreatitis: Qualified Codes: K85.90 - Acute pancreatitis without necrosis or infection, unspecified Yinka Mcneil MD Jul 25, 2017 13:35
--- NOTE | 2017-07-25 14:19 | HHI.FF ---
Face to Face Verification Diagnosis: (1) Diarrhea (2) Acute kidney injury (3) Esophagitis (4) Choledocholithiasis Physical Therapy Order: Evaluate and Treat Home Health Nursing Order: Nursing assessment with vital signs I have seen patient Luana Moon on 07/25/17. My clinical findings support the need for the requested home health care services because: High risk of falls I certify that my clinical findings support that this patient is homebound because: Unsteady gait/balance Yinka Mcneil MD Jul 25, 2017 14:18
--- NOTE | 2017-07-25 14:20 | HHI.DS ---
cc: Maico Beckman MD Discharge Summary Admission Date Jul 18, 2017 at 14:07 Discharge Date: Jul 25, 2017 Admitting Diagnosis pancreatitis, hypokalemia, ARMANDO (1) Pancreatitis ICD Code: K85.90 - Acute pancreatitis without necrosis or infection, unspecified (2) Acute kidney injury ICD Code: N17.9 - Acute kidney failure, unspecified (3) Hypokalemia ICD Code: E87.6 - Hypokalemia (4) Diarrhea ICD Code: R19.7 - Diarrhea, unspecified (5) Chronic obstructive pulmonary disease ICD Code: J44.9 - Chronic obstructive pulmonary disease Status: Acute Procedures 07/22/17 EGD, colonoscopy 07/24/17 ERCP Brief History - From Admission patient is a 77 y/o female with history of COPD and hypothyroidism who presented to ER with diarrhea. she says that she's had diarrhea for the past five days. she denies any stool in the blood, fever or chills but had mild epigastric pain. pain had no radiation and was not associated with nausea or vomiting. she says that she was prescribed flagyl by with no significant improvement. there's no history of antibiotic use recently. CBC/BMP: 07/22/17 0716 07/23/17 0747 Significant Findings Laboratory Tests Test 07/23/17 07:47 Blood Urea Nitrogen 5 MG/DL (7-18) Chloride Level 110 MEQ/L (98-107) Estimat Glomerular Filtration Rate 72 ML/MIN (>89) Imaging Last Impressions GI Procedure 07/24/17 0000 Signed Impressions: Service Date/Time: Monday, July 24, 2017 16:04 - CONCLUSION: Dilatation of the common bile duct with filling defects seen on several images and suspected edema in the distal common bile duct in the ampulla region. Stone Becker MD Chest X-Ray 07/21/17 0000 Signed Impressions: Service Date/Time: Friday, July 21, 2017 15:05 - CONCLUSION: 1. Hyperinflation with plain film findings of some degree of fibrosis, particularly in the apices. 2. Bibasilar atelectatic changes with possible small associated right-sided effusion. 3. No confluent infiltrate. 4. Stable, benign-appearing probable granulomatous type calcifications in the left upper lung. Reid Ortega MD Cholangiopancreatography MRI 07/20/17 0000 Signed Impressions: Service Date/Time: Thursday, July 20, 2017 13:08 - CONCLUSION: 1. Prominence of the extrahepatic biliary tree with the CBD measuring 1.1 cm the pancreatic head. 2. Choledocholithiasis with a 5-6 mm stone in the distal duct. Reid Ortega MD Liver Ultrasound 07/19/17 0000 Signed Impressions: Service Date/Time: Wednesday, July 19, 2017 18:31 - CONCLUSION: 1. Prior cholecystectomy. 2. Common bile duct at the upper range of normal in terms of size for patient that is status post cholecystectomy. No intrahepatic ductal dilatation. 3. Splenomegaly. 4. No acute abnormality. 5. Small echogenic right kidney suggesting underlying medical renal disease. Julio Espinoza Jr., MD PE at Discharge General: Thin elderly female in no acute distress. Heart: Regular rate and rhythm. No murmur. Lungs: Clear to auscultation bilaterally. No wheezes, rales, or rhonchi. Breathing is nonlabored. Abdomen: Soft, nontender, nondistended. Extremities: No lower extremity edema. Psych: Alert and oriented. Hospital Course The patient was admitted for management of abdominal pain. Gastroenterology was consulted. Labs indicated acute pancreatitis. She was continued on IV fluids. Lipase decreased to the normal range. Her diarrhea resolved. C. difficile testing was negative. EGD showed severe esophagitis. Colonoscopy was done well. Patient had ERCP. Her symptoms improved and she was cleared for discharge by GI. She was felt to be stable for discharge home with home health care. Pt Condition on Discharge: Stable Discharge Disposition: Disch w/ Home Health Serv Discharge Time: > 30 minutes Discharge Instructions DIET: Follow Instructions for: As Tolerated, No Restrictions Activities you can perform: Regular-No Restrictions Other Activity Instructions: With assistive device Follow up Referrals: Gastroenterology - 1 Week with Taras Lee MD PCP Follow-up - 1 Week with Maico Beckman MD Continued Medications: Acetaminophen (Acetaminophen) 325 Mg Tab 650 MG PO Q6HR PRN for PAIN SCALE 1 TO 3, #90 TAB 1 Refill Amlodipine (Amlodipine) 10 Mg Tab 10 MG PO DAILY for Blood Pressure Management, #30 TAB 0 Refills Bethanechol (Urecholine) 25 Mg Tab 12.5 MG PO QID for Urinary Symptom Managemen, #120 TAB 1 Refill Bisacodyl Supp (Bisac-Evac Supp) 10 Mg Supp 1 MG RECTAL DAILY PRN for CONSTIPATION, #14 1 Refill Cholecalciferol (Vitamin D-400) 400 Unit Tab 400 UNITS PO DAILY for Nutritional Supplement, #30 BOTTLE 1 Refill Cimetidine (Cimetidine) 300 Mg Tab 300 MG PO BID for STOMACH ACIDITY, TAB 0 Refills Fluticasone-Vilanterol Inh (Breo Ellipta Inh) 100-25 Mcg/Act Inh 1 PUFF INH DAILY for COPD, #2 INHALER Guaifenesin ER 12 HR (Mucinex ER 12 HR) 600 Mg Tiffanie 600 MG PO BID, #60 TAB 0 Refills Guaifenesin-Codeine Liq (Guaifenesin-Codeine Liq) 100-10 Mg/5 Ml Soln 5 ML PO Q6H PRN for cough, #1 BOTTLE Hydroxyzine HCl (Hydroxyzine HCl) 25 Mg Tab 25 MG PO Q8H PRN for ITCHING, #60 TAB 1 Refill Lactobacillus Acidophilus (Acidophilus/l-Sporogenes) 1 Tab Tab 1 TAB PO Q12HR, #60 TAB 1 Refill Levothyroxine (Levothyroxine) 88 Mcg Tab 88 MCG PO DAILY for Thyroid, #30 TAB 1 Refill Melatonin (Melatonin) 1 Mg Cap Mirtazapine (Mirtazapine) 15 Mg Tab 15 MG PO HS, #30 TAB 1 Refill Omeprazole (Omeprazole) 40 Mg Cap 40 MG PO DAILY, #30 CAP 1 Refill Oxycodone-Acetaminophen (Oxycodone-Acetaminophen) 5-325 mg Tab 1 TAB PO Q6HR for Pain Management, #30 TAB 0 Refills Oxygen tank (Oxygen tank) 1 Ea Tank 2 LITER CHRISTEN.CANULA CONTINUOUS for HYPOXEMIA PREVENTION, #2 CYLINDER Oxygen Concentrator Portable Gaseous 2 L/min via Nasal Cannula Continuous For 99 months Polyethylene Glycol 3350 Powder (Polyethylene Glycol 3350 Powder) 17 Gm Pow 17 GM PO DAILY PRN for CONSTIPATION, #30 1 Refill Rivaroxaban (Xarelto) 10 Mg Tab 10 MG PO DAILY, #13 TAB 0 Refills Tizanidine (Tizanidine) 2 Mg Cap 2 MG PO BID for Muscle Spasm, CAP 0 Refills Discontinued Medications: Bacitracin Topical (Bacitracin Topical) 500 Unit/Gm Oint 0 APPLIC TOP BID for 14 Days, TUBE 0 Refills Cefuroxime (Ceftin) 500 Mg Tab 500 MG PO BID for Infection, #6 TAB 0 Refills Celecoxib (Celebrex) 100 Mg Cap 100 MG PO BID for Pain Management, CAP 0 Refills Emollient (Aquaphor) 1 Oin Oin 1 APPLIC TOP Q12HR for 30 Days, TUBE 1 Refill Hydrocortisone Topical (Hydrocortisone Topical) 2.5% Cream 0 APPLIC TOP TID PRN for TO NON-OPEN AREAS ITCHING for 30 Days, TUBE 1 Refill Prednisone (48) 10 mg tab Dose Pack (Prednisone (48) 10 mg tab Dose Pack) 10 Mg Dspk 10 MG PO DIRECTED for Inflammation, #1 DSPK 0 Refills Yinka Mcneil MD Jul 25, 2017 14:20
[2017-07-25] MEDS ORDERED: CARA1TAB6 PO (14:53)
== END 2017-07-25 17:26 | disposition home or self-care (01) | DRG 439 ==
LOC: NEPC 10:29 → NEDA 14:07 → N07B 16:07
PROVIDERS: ADMIT Family Medicine; ATTEND Family Medicine
PROC: 0DB58ZX Excision of Esophagus, Via Natural or Artificial Opening Endoscopic, Diagnostic (ICD-10-PCS; principal; 2017-07-22 12:05)
PROC: 0F798ZZ Dilation of Common Bile Duct, Via Natural or Artificial Opening Endoscopic (ICD-10-PCS; 2017-07-24)
PROC: 0DBN8ZX Excision of Sigmoid Colon, Via Natural or Artificial Opening Endoscopic, Diagnostic (ICD-10-PCS; 2017-07-24)
PROC: 0DBL8ZX Excision of Transverse Colon, Via Natural or Artificial Opening Endoscopic, Diagnostic (ICD-10-PCS; 2017-07-24)
DX: K85.10 Biliary acute pancreatitis without necrosis or infection (principal); N17.9 Acute kidney failure, unspecified; I27.20 Pulmonary hypertension, unspecified; M34.9 Systemic sclerosis, unspecified; J44.9 Chronic obstructive pulmonary disease, unspecified; E83.42 Hypomagnesemia; E86.0 Dehydration; E87.6 Hypokalemia; R19.7 Diarrhea, unspecified; E03.9 Hypothyroidism, unspecified; I10 Essential (primary) hypertension; I25.2 Old myocardial infarction; I73.00 Raynaud's syndrome without gangrene; K21.0 Gastro-esophageal reflux disease with esophagitis; K22.70 Barrett's esophagus without dysplasia; K57.90 Diverticulosis of intestine, part unspecified, without perforation or abscess without bleeding; M79.7 Fibromyalgia; K80.50 Calculus of bile duct without cholangitis or cholecystitis without obstruction; Z96.651 Presence of right artificial knee joint
CPT/HCPCS: 71010; 74181; 74330; 76377; 76705; 76937; 80048; 80053; 81001; 82784; 82787; 83605; 83690; 83735; 84100; 84478; 85025; 86038; 86039; 87328; 87329; 87493; 87506; 88305; 88312; 94150; 94664; 96361; 96374; 96375; J1644; J2270; J2405; J3475; J3480; J7030; J7613; Q0177